=== PATIENT | male | born 1935 | race Caucasian/White ===

== ENCOUNTER 2019-09-20 14:45 | Inpatient (IN) | payer OTHER ==
[2019-09-20] MEDS ORDERED: NA CHLORIDE 0.9% 2,000 ML ONE (15:04)
[2019-09-20] MEDS ORDERED: ACETAMINOPHEN 650MG/RECT SUPP PR ONE (15:04)
[2019-09-20 15:30] LABS: Arterial Blood Carboxyhemoglob 1.7 % (0-1.5); Blood Gas Oxyhemoglobin 97.3 % (94-97); Blood O2 Saturation 99.6 % (92-98.5)
[2019-09-20 15:52] LABS: Protime INR 1.23
[2019-09-20 15:57] LABS: Absolute Lymphocytes (CBC) 0.5 K/uL (0.7-4.9); Basophils % 0.1 % (0-1.3); Hematocrit 32.8 % (39.6-49.0); MPV 8.7 fL (7.6-11.3); RBC Red Blood Cell Count 3.68 M/uL (4.33-5.43)
[2019-09-20 16:03] LABS: Albumin 2.7 g/dL (3.4-5.0); Bilirubin Direct 0.2 mg/dL (0-0.2); Bilirubin Total 0.7 mg/dL (0.2-1.0); Magnesium 1.6 mg/dL (1.8-2.4); Protein, Total 6.5 g/dL (6.4-8.2); Troponin (Emerg Dept Use Only) 0.06 ng/mL (0.0-0.045)
[2019-09-20] MEDS ORDERED: METOPROLOL TARTRATE 5 MG/5 ML INJ IV ONE (16:19)
[2019-09-20] MEDS ORDERED: ENOXAPARIN 100 MG/ML SYR SQ ONE (16:24)
[2019-09-20] MEDS ORDERED: FUROSEMIDE 100 MG/10 ML VIAL IV ONE (16:29)
[2019-09-20 16:46] LABS: Urine Blood 2+ (NEG); Urine Glucose NEGATIVE (NEG); Urine Protein 1+ (NEG)
[2019-09-20 16:52] LABS: Urine Bacteria <20 /HPF (NONE SEEN); Urine Culture Reflex Order NOT NEEDED; Urine RBC <5 /HPF (NONE SEEN)
[2019-09-20] MEDS ORDERED: PIPER/TAZO/NS 3.375gm 3.375 GM/100 ML BAG ONE ×2 (17:07→17:44)
[2019-09-20] MEDS ORDERED: MAGNESIUM SULFATE 1 gm IVPB 1 GM/100 ML BAG IV ONE (17:07)
--- NOTE | 2019-09-20 17:09 | RAD REPORT ---
EXAM DESCRIPTION: RAD - Chest Single View - 09/20/2019 3:32 pm CLINICAL HISTORY: FEVER COMPARISON: January 2006 TECHNIQUE: AP portable chest image was obtained 09/20/2019 3:32 pm . FINDINGS: Lung volumes are low. Interstitial and minimal alveolar opacities are present. Cardiomegal y is present. Vascular engorgement is seen. Minimal opacification partially obscures the right hemidi aphragm. No pneumothorax or large pleural effusion. No acute bony abnormality seen. No acute aortic f indings suspected. IMPRESSION: Limited shallow inspiration exam shows failure/ volume overload findings. This needs cor relation with clinical presentation. No focal consolidations seen. Right base assessment is limited. Retrocardiac left base assessment als o limited.
[2019-09-20 18:30] LABS: Blood Morphology Comment NOT SEEN (NOT SEEN); Platelet Estimate ADEQ; Urine White Blood Cell Casts OK
--- NOTE | 2019-09-20 18:36 | RAD REPORT ---
EXAM DESCRIPTION: CT - Head Brain Wo Cont - 09/20/2019 6:22 pm CLINICAL HISTORY: MENTAL STATUS CHANGE, AMS, fever, history of CVA COMPARISON: MRI BRAIN WITHOUT CONTRAST dated 11/06/2014 TECHNIQUE: Axial 5 mm thick images of the head were obtained without IV contrast. All CT scans are performed using dose optimization technique as appropriate and may include automated exposure control or mA/KV adjustment according to patient size. FINDINGS: No intracranial hemorrhage, mass, edema or shift of mid-line structures. No acute infarcti on changes seen. No cortical edema or sulcal effacement. Moderate severity atrophy present. Chronic i schemic changes are present relatively mild. Old ischemic changes are present in the posterolateral l eft thalamus. This is similar to the MRI study. Ventricles are in proportion to volume loss. Vascular tortuosity noted. Arterial and physiologic calcifications present. Mastoid air cells and visualized portions of the paranasal sinuses are clear. No acute bony findings. IMPRESSION: No hemorrhage is present. No acute cortical based infarction. Atrophy and chronic ischemic changes are present but not substantially different from 2015 MRI. Chronic ischemic changes can mask nonhemorrhagic acute infarction. MR brain followup can be obtained if there is ongoing concern for acute ischemia.
--- NOTE | 2019-09-20 18:43 | RAD REPORT ---
EXAM DESCRIPTION: CT - Chest For Pe Angio - 09/20/2019 6:22 pm CLINICAL HISTORY: elevated dd;Fever COMPARISON: No comparisons TECHNIQUE: Dynamically enhanced 3 mm thick images of the chest were obtained during administration o f approximately 150mL Isovue 370 IV contrast. Coronal and oblique MIP reconstruction images were gene rated and reviewed. Exam utilizes a protocol to evaluate the pulmonary arterial tree. All CT scans are performed using dose optimization technique as appropriate and may include automated exposure control or mA/KV adjustment according to patient size. FINDINGS: No pulmonary emboli are identified. Ascending aorta is 4.2 cm in diameter. Aortic arch distal to the left subclavian artery origin is dil ated to 4.7 cm. No displaced calcifications. Full assessment of the aorta is limited on a PE protocol study. Cardiomegaly is present without pericardial effusion. Emphysema changes are present in the upper lung herrera. Minimal atelectasis in the posterior gutter o n the left. Atelectasis and consolidation are present in the posterior gutter on the right. A few air bronchograms are present. No ground-glass opacification. No measurable pleural effusion. There is no pneumothorax. No mediastinal or hilar suspicious masses. No chest wall masses or abnormal axillary lymphadenopathy. Upper abdominal imaging is limited. There is a 4.9 centimeter round low-density mass believed to be a n upper pole left renal cyst. A much larger 12 centimeter lobulated mass is present in the location o f the right kidney displacing the liver. This has variable attenuation. The right kidney is insuffici ently image to allow assessment. Most of the large lobulated mass is low density. 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 A large malignancy cannot be excluded. This finding warrants follow-up. However, that follow-up may need to be delayed. The patient has received contrast for this study. IMPRESSION: No pulmonary emboli identified. Small posterior right lung base pneumonia. Bacterial pneumonia suspected. Lung parenchymal pattern is not a typical COVID-19 presentation. Large lobulated 12 centimeter mass in the right renal fossa only partially imaged. 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 Malignancy cannot be excluded. Follow-up CT abdomen imaging will be needed. However, this needs to be delayed for optimal imaging. T he presence of contrast from this study limits the ability to perform intermediate evaluation of the kidney. Cardiomegaly.
[2019-09-20] MEDS ORDERED: NA CHLORIDE 0.9% 250 ML ONE (19:19)
[2019-09-20] MEDS ORDERED: CEFTRIAXONE/SWI 1gm 1 GM/10 ML SYR ONE (19:19)
[2019-09-20] MEDS ORDERED: VANCOMYCIN 1 GM/VIAL ONE (19:19)
--- NOTE | 2019-09-20 19:22 | ER ---
Nurse's Notes [facility] Name: Osmin Hobbs Age: 84 yrs Sex: Male : 1935 Arrival Date: 09/20/2019 Time: 14:48 Bed 4 Private MD: Diagnosis: Atrial Fibrillation with Rapid Ventricular rate;Fever, unspecified;Pneumonia in diseases classified elsewhere;Unspecified combined systolic (congestive) and diastolic (congestive) heart failure;Respiratory failure;Hypertension Presentation: 09/19 14:48 Chief complaint: EMS states: Family called us due to pt being altered, normally A\T\Ox4 jl7 and he's A\T\Ox2 to self and place; pt was SOB on arrival, 12-lead showed A-Fib with RVR, 10 mg Cardizem IVP administered over 2 min with no change; an additional 20 mg Cardizem IVP administered over 10 min with no change. Coronavirus screen: Surgical mask placed on patient. Patient moved to private room, placed in contact and droplet isolation with eye protection until further assessment. Patient denies a cough. Patient reports shortness of breath or difficulty breathing. Patient reports a measured and/or subjective temperature greater than 100.4F. unable to obtain travel and contact history at this time. 14:48 Method Of Arrival: EMS: [facility] jl7 14:48 Ebola Screen: No symptoms or risks identified at this time. Initial Sepsis Screen: Does jl7 the patient meet any 2 criteria? RR > 20 per min. Temp <36.0*C (96.8*F)) or > 38.3*C (100.9*F). Altered Mental Status. HR > 90 bpm. Yes Does the patient have a suspected source of infection? Yes: Productive cough/pneumonia Dysuria/Frequency/Urgency/UTI. Risk Assessment: Do you want to hurt yourself or someone else? Patient reports no desire to harm self or others. Onset of symptoms is unknown. Care prior to arrival: Medication(s) given: Normal saline infusion, 300 mL IV initiated. 20 GA, in the left forearm, Oxygen administered. via a non-rebreather mask. Activity prior to arrival: confused. Transition of care: patient was not received from another setting of care. 16:31 Acuity: CESARIO 1 iw Triage Assessment: 14:48 General: Appears distressed, uncomfortable, unkempt, Behavior is agitated, restless. jl7 Pain: Unable to use pain scale. Does not appear to understand pain scale. Neuro: Level of Consciousness is awake, confused, Oriented to person. Cardiovascular: Patient's skin is warm and dry. Rhythm is atrial fibrillation with rapid ventricular response. Respiratory: Airway is patent Respiratory effort is even, labored, Respiratory pattern is symmetrical, tachypnea. Derm: Skin is dry, Skin is pale, Skin temperature is hot. Historical: - Allergies: 16:37 Sulfa (Sulfonamide Antibiotics); iw - Home Meds: 16:38 aspirin 81 mg Oral chew 1 tab once daily [Active]; multivitamin Oral [Active]; iw - PMHx: 16:38 CVA; iw - PSHx: 16:38 Hernia repair; iw - Immunization history:: Adult Immunizations unknown. - Social history:: Smoking status: unknown. Screenin:00 Abuse screen: Denies threats or abuse. Denies injuries from another. Nutritional jl7 screening: No deficits noted. Tuberculosis screening: No symptoms or risk factors identified. Fall Risk No fall in past 12 months (0 pts). No secondary diagnosis (0 pts). IV access (20 points). Ambulatory Aid- None/Bed Rest/Nurse Assist (0 pts). Gait- Weak (10 pts.). Mental Status- Overestimates/Forgets Limitations (15 pts.). Total Carlson Fall Scale indicates High Risk Score (45 or more points). Fall prevention measures have been instituted. Side Rails Up X 2 Placed Close to Nursing Station Frequent Obs/Assessments Occuring As available patient and family educated on Fall Prevention Program and Strategies. Assessment: 16:10 Reassessment: Reassessment: Pt has increased restlessness and agitation, audible jl7 wheezing noted. JOSE G Boggs and Dr. Benavides notified and at bedside. Respiratory: Airway is patent Respiratory effort is labored, with retractions, Respiratory pattern is tachypnea. 16:30 Reassessment: Dr. Benavides and JOSE G Boggs at beside to reassess, RT called to bedside to iw place pt on BiPAP. 16:44 Reassessment: spoke with Zoe on phone, states that pt is a Full Code and has iw no hx of Afib, not on any anticoagulation, only takes a baby aspirin daily since he had a stroke five years ago. 17:40 Reassessment: pt placed on cooling blanket for temp of 105.1, pt cleaned of stool, iw linens changed, pt remains on BiPAP, appears more relaxed BP down to 112/72, HR down to 92 , XzB6=650%. 17:40 Reassessment: IV to LFA appears to be infiltrated, new IV started to LAC. iw 18:41 Reassessment: Pt transport to CT via stretcher with LYLE Jones and ADRIÁN Turner. [address] on 2 lpm NC; A\T\O x 3 at this time; pt appeared to start getting restless with NC on, once returned from CT and BiPap placed back on pt he appeared to settle down and appears more comfortable at this time. 19:58 Reassessment: DR LAMB ASSESSED THE PATIENT AT ROOM 4 AND DISCONNECTED TO BIPAP MACHINE. rv PATIENT IS STABLE AT 2 NC, SAT AT 99%. 21:00 Neuro: Level of Consciousness is awake, alert, obeys commands, Oriented to person, rv place, situation. 21:00 Cardiovascular: Rhythm is atrial fibrillation with rapid ventricular response. rv Vital Signs: 14:48 BP 125 / 75; Pulse 120; Resp 21 S; Pulse Ox 85% on R/A; jl7 14:54 Weight 90.72 kg; vc 15:00 BP 123 / 78; Pulse 107; Resp 19; Pulse Ox 100% on Non-rebreather mask; jl7 15:30 BP 139 / 101; Pulse 102; Resp 25 S; Pulse Ox 91% on 2 lpm NC; jl7 16:08 BP 161 / 96; Pulse 157; Resp 34 S; Temp 102.5(C); Pulse Ox 86% on 2 lpm NC; jl7 16:12 BP 161 / 96; Pulse 157; Resp 30 S; Pulse Ox 94% on 2 lpm NC; jl7 16:43 BP 179 / 101; Pulse 115; Resp 39; Temp 104.6(C); Pulse Ox 99% on BiPAP; iw 16:47 BP 124 / 85; Pulse 108; Resp 30 A; Temp 104.8(C); Pulse Ox 99% on BiPAP; jl7 16:50 BP 116 / 71; Pulse 98; Resp 27; Temp 105; Pulse Ox 99% ; jl7 17:00 BP 100 / 64; Pulse 92; Resp 26; Temp 105.1; Pulse Ox 99% ; jl7 17:15 BP 133 / 87; Pulse 97; Resp 26; Temp 104.7; Pulse Ox 100% ; jl7 17:30 BP 109 / 71; Pulse 101; Resp 21 A; Temp 104.1(C); Pulse Ox 100% on BiPAP; jl7 17:45 BP 112 / 72; Pulse 89; Resp 22; Pulse Ox 99% ; jl7 18:00 BP 130 / 76; Pulse 96; Resp 22; Temp 103.7; Pulse Ox 100% ; jl7 18:15 BP 139 / 103; Pulse 111; Resp 24; Pulse Ox 95% on 2 lpm NC; jl7 18:30 BP 148 / 83; Pulse 96; Resp 21; Temp 101.9; Pulse Ox 96% ; jl7 18:45 BP 124 / 85; Pulse 100; Resp 21; Pulse Ox 97% ; jl7 19:00 BP 116 / 78; Pulse 93; Resp 19; Pulse Ox 98% on 30% BiPAP; rv 19:30 BP 132 / 82; Pulse 90; Resp 27; Temp 101; Pulse Ox 99% on 30% BiPAP; rv 20:00 BP 127 / 95; Pulse 94; Resp 19; Temp 100.6; Pulse Ox 99% on 30% BiPAP; rv 20:30 BP 149 / 106; Pulse 101; Resp 25; Temp 100.2; Pulse Ox 97% on 2 lpm NC; rv 20:30 BP 149 / 106; Pulse 101; Resp 25; Temp 100.4; Pulse Ox 97% on 2 lpm NC; rv 21:00 BP 169 / 103; Pulse 103; Resp 24; Temp 100.4; Pulse Ox 97% on 2 lpm NC; rv ED Course: 14:48 Patient arrived in ED. iw 14:48 Ambrose Arauz PA is PHCP. jr8 14:48 Nabil Benavides DO is Attending Physician. jr8 15:00 Patient has correct armband on for positive identification. Placed in gown. Bed in low jl7 position. Call light in reach. Side rails up X2. threat monitoring analyst on. Pulse ox on. NIBP on. 15:05 First set of blood cultures drawn by me. jl7 15:11 Initial lab(s) drawn, by me, sent to lab. Inserted saline lock: 20 gauge in right jl7 wrist, using aseptic technique. Blood collected. 15:11 Second set of blood cultures drawn by me, Flu and/or RSV swab sent to lab. Covid-19 jl7 swab sent to lab. 15:33 Chest Single View XRAY In Process Unspecified. EDMS 15:50 Cleaned of incontinence. jl7 15:57 Notified Nurse Practitioner and/or Physician [employer] of a critical lab result(s), sv [id number]. 16:00 Speci-cath kit inserted, using sterile technique, 16 Fr., specimen obtained. returned jl7 clear yellow urine. Patient tolerated well. 16:31 Triage completed. iw 17:08 uYe Murphy, RN is Primary Nurse. jl7 17:30 Cleaned of incontinence. jl7 17:57 Inserted saline lock: 20 gauge in left antecubital area, using aseptic technique. iw 18:22 CT Head Brain wo Cont In Process Unspecified. EDMS 18:22 CT Chest For PE Angio In Process Unspecified. EDMS 19:17 Gene Lamb MD is Hospitalizing Provider. ms3 19:38 Primary Nurse role handed off by Yue Murphy, RN jl7 19:58 Jun Carvajal, ADRIÁN is Primary Nurse. rv 20:28 a voicemail has been left at the listed number [phone] for a call back to the ED, sg awaiting a call back at this time. 21:26 No provider procedures requiring assistance completed. Patient admitted, IV remains in vc place. Administered Medications: 16:00 Drug: Acetaminophen Suppository 650 mg Route: MT; jl7 17:30 Follow up: Response: No adverse reaction; Temperature is decreased jl7 16:10 Drug: NS 0.9% (30 ml/kg) 30 ml/kg Route: IV; Rate: bolus; Site: right wrist; jl7 16:45 Follow up: IV Status: Completed infusion; Order to discontinue infusion; IV Intake: jl7 500ml 16:10 Drug: Lopressor 5 mg Route: IVP; Site: right wrist; jl7 16:12 Drug: Lovenox 1 mg/kg Route: Sub-Q; Site: abdomen; jl7 18:42 Follow up: Response: No adverse reaction jl7 16:20 Drug: Lopressor 5 mg Route: IVP; Site: right wrist; jl7 16:45 Follow up: Response: No adverse reaction; Cardiac rhythm changed jl7 16:22 Drug: Lasix 60 mg Route: IVP; Site: right wrist; jl7 17:00 Follow up: Response: No adverse reaction jl7 16:36 Drug: Nitro Drip - (Nitroglycerin 50 mg, D5W 250 ml) Route: IV; Rate: 100 mcg/min; jl7 Site: right wrist; 16:50 Follow up: Response: No adverse reaction; IV Status: Order to discontinue infusion jl7 17:15 Drug: Magnesium Sulfate 1 grams Route: IVPB; Infused Over: 1 hrs; Site: right iw antecubital; 18:15 Follow up: Response: No adverse reaction; IV Status: Completed infusion jl7 17:30 Drug: Zosyn 3.375 grams Route: IVPB; Infused Over: 60 mins; Site: left antecubital; iw 18:30 Follow up: Response: No adverse reaction; IV Status: Completed infusion jl7 19:20 Drug: Rocephin 1 grams Route: IV; Rate: calculated rate; Site: left antecubital; rv 19:25 Follow up: IV Status: Completed infusion rv 19:25 Drug: vancoMYCIN 1 grams Route: IVPB; Infused Over: 2 hrs; Site: left antecubital; rv 21:37 Follow up: IV Status: Infusion continued upon admission rv Intake: 16:45 IV: 500ml; Total: 500ml. 7 Outcome: 19:21 Decision to Hospitalize by Provider. ms3 21:27 Patient left the ED. vc Signatures: Dispatcher [employer] EDMS Yasmin Vogel RN RN sv Gay, Steven RN Wendi Byrd RN RN Ambrose Arauz, Yue Molina RN RN jl7 Jun Carvajal RN RN rv Alana Garcia RN RN Nabil Benavides DO DO ms3 Corrections: (The following items were deleted from the chart) 17:55 16:57 BP 116 / 71; Pulse 95bpm; Resp 20bpm; Spontaneous; Pulse Ox 99% BiPAP; Temp jl7 105.1F Catheter; iw 17:55 17:49 BP 112 / 72; Pulse 92bpm; Resp 22bpm; Spontaneous; Pulse Ox 100% BiPAP; Temp jl7 103.2F Catheter; iw 17:56 17:52 Reassessment: pt placed on cooling blanket for temp of 105.1, pt cleaned of iw stool, linens changed, pt remains on BiPAP, appears more relaxed BP down to 112/72, HR down to 92 , UbC9=410% iw 19:26 16:10 Reassessment: geraldo jl7
--- NOTE | 2019-09-20 19:22 | EDPHYS ---
Physician Documentation [facility] Name: Osmin Hobbs Age: 84 yrs Sex: Male : 1935 Arrival Date: 09/20/2019 Time: 14:48 Bed 4 Private MD: ED Physician Nabil Benavides HPI: 09/19 16:59 This 84 yrs old Male presents to ER via Unassigned with complaints of Altered jr8 Mental Status, Fever. 16:59 Onset: The symptoms/episode began/occurred acutely, today. Possible causes: unknown. jr8 Associated signs and symptoms: Pertinent positives: confusion. Current symptoms: In the emergency department the patient's symptoms are unchanged from the initial presentation. Patient's baseline: Neuro: alert and fully oriented, Motor: no deficits, Ambulation: walks with assist only, Speech: normal. It is unknown whether or not the patient has had similar symptoms in the past. The patient has not recently seen a physician. EMS called out by family for altered patient. Patient found to have fever at home. No other complaints . Historical: - Allergies: 16:37 Sulfa (Sulfonamide Antibiotics); iw - Home Meds: 16:38 aspirin 81 mg Oral chew 1 tab once daily [Active]; multivitamin Oral [Active]; iw - PMHx: 16:38 CVA; iw - PSHx: 16:38 Hernia repair; iw - Immunization history:: Adult Immunizations unknown. - Social history:: Smoking status: unknown. ROS: 17:09 Eyes: Negative for injury, pain, redness, and discharge, ENT: Negative for injury, jr8 pain, and discharge, Neck: Negative for injury, pain, and swelling, Cardiovascular: Negative for chest pain, palpitations, and edema, Abdomen/GI: Negative for abdominal pain, nausea, vomiting, diarrhea, and constipation, Back: Negative for injury and pain, MS/Extremity: Negative for injury and deformity, Skin: Negative for injury, rash, and discoloration. 17:09 Respiratory: Positive for shortness of breath. 17:09 Neuro: Positive for altered mental status. Exam: 17:09 Eyes: Pupils equal round and reactive to light, extra-ocular motions intact. Lids and jr8 lashes normal. Conjunctiva and sclera are non-icteric and not injected. Cornea within normal limits. Periorbital areas with no swelling, redness, or edema. Neck: Trachea midline, no thyromegaly or masses palpated, and no cervical lymphadenopathy. Supple, full range of motion without nuchal rigidity, or vertebral point tenderness. No Meningismus. Abdomen/GI: Soft, non-tender, with normal bowel sounds. No distension or tympany. No guarding or rebound. No evidence of tenderness throughout. Back: No spinal tenderness. No costovertebral tenderness. Full range of motion. Skin: Warm, dry with normal turgor. Normal color with no rashes, no lesions, and no evidence of cellulitis. 17:09 MS/ Extremity: Pulses equal, no cyanosis. Neurovascular intact. Full, normal range of motion. 17:09 Cardiovascular: Rate: tachycardic, Rhythm: irregularly irregular, Pulses: Pulses are 2+ in right radial artery and left radial artery. Heart sounds: normal, Edema: is not appreciated, JVD: is not appreciated. 17:09 Respiratory: the patient does not display signs of respiratory distress, Respirations: tachypnea, that is mild, Breath sounds: decreased breath sounds, that are mild, are located in both bases. 17:09 Neuro: Orientation: to person, Not oriented to place, time, situation, Mentation: able to follow commands, confused. 17:18 ECG was reviewed by the Attending Physician. jr8 Vital Signs: 14:48 BP 125 / 75; Pulse 120; Resp 21 S; Pulse Ox 85% on R/A; jl7 14:54 Weight 90.72 kg; vc 15:00 BP 123 / 78; Pulse 107; Resp 19; Pulse Ox 100% on Non-rebreather mask; jl7 15:30 BP 139 / 101; Pulse 102; Resp 25 S; Pulse Ox 91% on 2 lpm NC; jl7 16:08 BP 161 / 96; Pulse 157; Resp 34 S; Temp 102.5(C); Pulse Ox 86% on 2 lpm NC; jl7 16:12 BP 161 / 96; Pulse 157; Resp 30 S; Pulse Ox 94% on 2 lpm NC; jl7 16:43 BP 179 / 101; Pulse 115; Resp 39; Temp 104.6(C); Pulse Ox 99% on BiPAP; iw 16:47 BP 124 / 85; Pulse 108; Resp 30 A; Temp 104.8(C); Pulse Ox 99% on BiPAP; jl7 16:50 BP 116 / 71; Pulse 98; Resp 27; Temp 105; Pulse Ox 99% ; jl7 17:00 BP 100 / 64; Pulse 92; Resp 26; Temp 105.1; Pulse Ox 99% ; jl7 17:15 BP 133 / 87; Pulse 97; Resp 26; Temp 104.7; Pulse Ox 100% ; jl7 17:30 BP 109 / 71; Pulse 101; Resp 21 A; Temp 104.1(C); Pulse Ox 100% on BiPAP; jl7 17:45 BP 112 / 72; Pulse 89; Resp 22; Pulse Ox 99% ; jl7 18:00 BP 130 / 76; Pulse 96; Resp 22; Temp 103.7; Pulse Ox 100% ; jl7 18:15 BP 139 / 103; Pulse 111; Resp 24; Pulse Ox 95% on 2 lpm NC; jl7 18:30 BP 148 / 83; Pulse 96; Resp 21; Temp 101.9; Pulse Ox 96% ; jl7 18:45 BP 124 / 85; Pulse 100; Resp 21; Pulse Ox 97% ; jl7 19:00 BP 116 / 78; Pulse 93; Resp 19; Pulse Ox 98% on 30% BiPAP; rv 19:30 BP 132 / 82; Pulse 90; Resp 27; Temp 101; Pulse Ox 99% on 30% BiPAP; rv 20:00 BP 127 / 95; Pulse 94; Resp 19; Temp 100.6; Pulse Ox 99% on 30% BiPAP; rv 20:30 BP 149 / 106; Pulse 101; Resp 25; Temp 100.2; Pulse Ox 97% on 2 lpm NC; rv 20:30 BP 149 / 106; Pulse 101; Resp 25; Temp 100.4; Pulse Ox 97% on 2 lpm NC; rv 21:00 BP 169 / 103; Pulse 103; Resp 24; Temp 100.4; Pulse Ox 97% on 2 lpm NC; rv MDM: 14:48 Patient medically screened. jr8 16:51 ED course: Pt with increased work of breathing and increased HR. Pt hypertensive MAP ms3 124 (200/110), pt with likely COVID and possible CHF. Bipap started at 15/8. Nitro ggt started at 100 mcg/min, pt MAP of 97. Nitro decreased to 50 mcg/min. Pt MAP then decreased to 87 and Nitro ggt stopped. Pt work of breathing improved. Will continue to monitor patient closely.. 17:09 Data reviewed: vital signs, nurses notes, lab test result(s), EKG, radiologic studies, [facility] plain films. Data interpreted: Pulse oximetry: on 4L(s) per nasal canula, is 88 %. Interpretation: hypoxia. Counseling: I had a detailed discussion with the patient and/or guardian regarding: the historical points, exam findings, and any diagnostic results supporting the discharge/admit diagnosis, lab results, radiology results, the need for further work-up and treatment in the hospital. ED course: Patient acutely decompensated in ED. Went into Atrial Fib RVR with diffuse wheezing and acute respiratory distress. Patient was given lasix, BIPAP, and nitro, along with another 5 mg of metoprolol. Patient within about 10 min stabilized and is now doing much better. 17:17 ED course: Discussed care with family. Patient to remain full code. As far as family [facility] knows. No HF history of atrial fib . 09/19 14:50 Order name: ABG; Complete Time: 15:38 09/19 14:50 Order name: D-Dimer; Complete Time: 16: [facility] 09/19 14:50 Order name: Urine Culture 09/19 14:50 Order name: Basic Metabolic Panel; Complete Time: 16: [facility] 09/19 14:50 Order name: Blood Culture Adult (2) [facility] 09/19 14:50 Order name: CBC with Diff; Complete Time: 19:03 [facility] 09/19 14:50 Order name: CPK; Complete Time: 16:55 [facility] 09/19 14:50 Order name: Lactate; Complete Time: 16:55 [facility] 09/19 14:50 Order name: LFT's; Complete Time: 16:55 [facility] 09/19 14:50 Order name: Lipase; Complete Time: 16:55 [facility] 09/19 14:50 Order name: Procalcitonin; Complete Time: 16:55 [facility] 09/19 14:50 Order name: Protime (+inr); Complete Time: 16:55 [facility] 09/19 14:50 Order name: Ptt, Activated; Complete Time: 16: [facility] 09/19 14:50 Order name: Troponin (emerg Dept Use Only); Complete Time: 16:55 09/19 14:50 Order name: Urine Microscopic Only; Complete Time: 16:55 09/19 14:50 Order name: COVID-19 09/19 14:50 Order name: BNP; Complete Time: 16:55 09/19 14:50 Order name: Magnesium; Complete Time: 16:55 [facility] 09/19 15:17 Order name: Flu; Complete Time: 16:55 iw 09/19 16:44 Order name: Urine Dipstick--Ancillary (enter results); Complete Time: 16:55 eb 09/19 18:30 Order name: CBC Smear Scan; Complete Time: 19:03 EDMS 09/19 20:09 Order name: Comprehensive Metabolic Panel MS 09/19 20:09 Order name: Comprehensive Metabolic Panel MS 09/19 20:09 Order name: Lactate EDMS 09/19 20:09 Order name: Lactate EDMS 09/19 20:09 Order name: Magnesium EDMS 09/19 20:09 Order name: Magnesium EDMS 09/19 20:09 Order name: NT PRO-BNP MS 09/19 20:09 Order name: NT PRO-BNP MS 09/19 20:09 Order name: Phosphorus EDMS 09/19 14:50 Order name: Cath; Complete Time: 17:09 09/19 14:50 Order name: Chest Single View XRAY; Complete Time: 17:21 09/19 14:50 Order name: Accucheck; Complete Time: 17:23 09/19 14:50 Order name: Cardiac monitoring; Complete Time: 17:09/19 14:50 Order name: EKG - Nurse/Tech; Complete Time: 17:23 09/19 14:50 Order name: IV Saline Lock - Large Bore; Complete Time: 17:23 09/19 14:50 Order name: Labs collected and sent; Complete Time: 17:09/19 14:50 Order name: O2 Per Protocol; Complete Time: 17:23 09/19 14:50 Order name: O2 Sat Monitoring; Complete Time: 17:23 09/19 14:50 Order name: Urine Dipstick-Ancillary (obtain specimen); Complete Time: 17:23 09/19 17:07 Order name: BIPAP jr8 09/19 17:27 Order name: CT Head Brain wo Cont; Complete Time: 19:03 jr8 09/19 17:27 Order name: CT Chest For PE Angio; Complete Time: 19:03 jr8 09/19 20:09 Order name: Phosphorus EDMS 09/19 20:09 Order name: Procalcitonin EDMS 09/19 20:09 Order name: Procalcitonin EDMS 09/19 20:11 Order name: Heart Healthy EDMS 09/19 20:11 Order name: CBC with Automated Diff EDMS 09/19 20:11 Order name: CBC with Automated Diff EDMS 09/19 20:11 Order name: Troponin I EDMS 09/19 20:11 Order name: Troponin I EDMS 09/19 20:11 Order name: Troponin I EDMS EC:18 Rate is 115 beats/min. Rhythm is irregularly irregular, A fib. Left axis deviation jr8 noted. QRS interval is normal at 88 msec. QT interval is normal at 450 msec. No Q waves. T waves are Normal. No ST changes noted. Clinical impression: Atrial Fibrillation. Interpreted by me. Reviewed by me. Administered Medications: 16:00 Drug: Acetaminophen Suppository 650 mg Route: CO; jl7 17:30 Follow up: Response: No adverse reaction; Temperature is decreased jl7 16:10 Drug: NS 0.9% (30 ml/kg) 30 ml/kg Route: IV; Rate: bolus; Site: right wrist; jl7 16:45 Follow up: IV Status: Completed infusion; Order to discontinue infusion; IV Intake: jl7 500ml 16:10 Drug: Lopressor 5 mg Route: IVP; Site: right wrist; jl7 16:12 Drug: Lovenox 1 mg/kg Route: Sub-Q; Site: abdomen; jl7 18:42 Follow up: Response: No adverse reaction jl7 16:20 Drug: Lopressor 5 mg Route: IVP; Site: right wrist; jl7 16:45 Follow up: Response: No adverse reaction; Cardiac rhythm changed jl7 16:22 Drug: Lasix 60 mg Route: IVP; Site: right wrist; jl7 17:00 Follow up: Response: No adverse reaction jl7 16:36 Drug: Nitro Drip - (Nitroglycerin 50 mg, D5W 250 ml) Route: IV; Rate: 100 mcg/min; jl7 Site: right wrist; 16:50 Follow up: Response: No adverse reaction; IV Status: Order to discontinue infusion jl7 17:15 Drug: Magnesium Sulfate 1 grams Route: IVPB; Infused Over: 1 hrs; Site: right iw antecubital; 18:15 Follow up: Response: No adverse reaction; IV Status: Completed infusion jl7 17:30 Drug: Zosyn 3.375 grams Route: IVPB; Infused Over: 60 mins; Site: left antecubital; iw 18:30 Follow up: Response: No adverse reaction; IV Status: Completed infusion jl7 19:20 Drug: Rocephin 1 grams Route: IV; Rate: calculated rate; Site: left antecubital; rv 19:25 Follow up: IV Status: Completed infusion rv 19:25 Drug: vancoMYCIN 1 grams Route: IVPB; Infused Over: 2 hrs; Site: left antecubital; rv 21:37 Follow up: IV Status: Infusion continued upon admission rv Disposition: 17:17 Critical Care:. arturo 18:22 Co-signature as Attending Physician, Nabil Benavides DO I agree with the assessment and ms3 plan of care. PA/SCRAP BALLER's history reviewed, patient interviewed, and examined. HPI: 84 yo male presents w/ tachycardia, fever, ams, a fib with RVR via LJEMS. My personal exam of patient reveals: Pt with tachypnea and respiratory distress on arrival, Pulse irregularly irregular, tachycardic. Pt with confusion. I agree with assessment and care plan and confirm the diagnosis (es) above. Disposition: 09/20/19 19:21 Hospitalization ordered by Gene [facility] for Inpatient Admission. Preliminary diagnosis are Atrial Fibrillation with Rapid Ventricular rate, Fever, unspecified, Pneumonia in diseases classified elsewhere, Unspecified combined systolic (congestive) and diastolic (congestive) heart failure, Respiratory failure, Hypertension. - Bed requested for Intensive Care Unit. - Status is Inpatient Admission. vc - Condition is Stable. - Problem is new. - Symptoms have improved. Critical care time excluding procedures: 17:17 Critical care time: Bedside Care: 20 minutes, Consultation: 10 minutes, Family jr8 Intervention: 5 minutes. Total time: 35 minutes Addendum: 09/22/2019 10:50 Addendum: fluids were held after patient had flash pulmonary edema. Abx delayed as we j r8 initially suspected a possibility of COVID related viral pneumonia. . Signatures: Dispatcher [employer] EDYasmin Stock, RN Rosalva Reno RN Wendi Horner, RN RN Ambrose Hayes PA PA jr8 Yue Murphy, ADRIÁN RN jl7 Jun Carvajal RN RN rv Alana Garcia RN RN vc Sims, Marcus, DO DO ms3 Corrections: (The following items were deleted from the chart) 09/19 20:22 19:21 Hospitalization Ordered by Gene Lamb MD for Inpatient Admission. Preliminary dw diagnosis is Atrial Fibrillation with Rapid Ventricular rate; Fever, unspecified; Pneumonia in diseases classified elsewhere; Unspecified combined systolic (congestive) and diastolic (congestive) heart failure; Respiratory failure; Hypertension. Bed requested for Intensive Care Unit. Status is Inpatient Admission. Condition is Stable. Problem is new. Symptoms have improved. ms3 21:27 20:22 09/20/2019 19:21 Hospitalization Ordered by Gene [facility] MD for Inpatient vc Admission. Preliminary diagnosis is Atrial Fibrillation with Rapid Ventricular rate; Fever, unspecified; Pneumonia in diseases classified elsewhere; Unspecified combined systolic (congestive) and diastolic (congestive) heart failure; Respiratory failure; Hypertension. Bed requested for Intensive Care Unit. Status is Inpatient Admission. Condition is Stable. Problem is new. Symptoms have improved. dw
[2019-09-20] MEDS ORDERED: ALBUTEROL 2.5 MG/3 ML NEB SOL NEB PRN (20:02)
[2019-09-20] MEDS ORDERED: IPRATROPIUM BROM 0.5MG/2.5ML NEB PRN (20:02)
[2019-09-20] MEDS ORDERED: ONDANSETRON 4 MG/2 ML VIAL IV PRN (20:02)
[2019-09-20] MEDS ORDERED: Levofloxacin500mg IV 500 MG/100 ML BAG IV SCH (21:00)
[2019-09-20] MEDS ORDERED: NA CHLORIDE 0.9% 1,000 ML IV SCH (21:00)
[2019-09-20] MEDS: ACETAMINOPHEN 500 MG TAB PO SCH (22:06)
[2019-09-20] MEDS ORDERED: METOPROLOL TARTRATE 5 MG/5 ML INJ IV STA (23:31)
[2019-09-21] MEDS ORDERED: NITROGLYCERIN 1 GM PKT TD SCH
[2019-09-21] MEDS ORDERED: NA CHLORIDE 0.9% 100 ML ONE (00:55)
[2019-09-21] MEDS ORDERED: PIPERACIL/TAZO 3.375 GM VIAL IV ONE (00:55)
[2019-09-21] MEDS: PIPER/TAZO/NS 3.375gm 3.375 GM/100 ML BAG IVPB SCH ×3 (01:00→16:25)
[2019-09-21] MEDS: ACETAMINOPHEN 500 MG TAB PO SCH ×4 (04:39→21:24)
[2019-09-21 05:45] LABS: Absolute Lymphocytes (CBC) 0.6 K/uL (0.7-4.9); Basophils % 0.2 % (0-1.3); Hematocrit 33.5 % (39.6-49.0); Lymphocytes % 3.4 % (15.3-44.8); MPV 8.6 fL (7.6-11.3); RBC Red Blood Cell Count 3.74 M/uL (4.33-5.43)
[2019-09-21 05:53] LABS: Albumin 2.6 g/dL (3.4-5.0); Bilirubin Total 0.6 mg/dL (0.2-1.0); Magnesium 2.2 mg/dL (1.8-2.4); Phosphorus 3.9 mg/dL (2.5-4.9); Potassium 3.3 mmol/L (3.5-5.1); Protein, Total 6.5 g/dL (6.4-8.2); Troponin I 0.1 ng/mL (0.0-0.045)
--- NOTE | 2019-09-21 05:53 | P.HP ---
Certification for Inpatient Patient admitted to: Inpatient With expected LOS: >2 Midnights Patient will require the following post-hospital care: None Practitioner: I am a practitioner with admitting privileges, knowledge of patient current condition, hospital course, and medical plan of care. Services: Services provided to patient in accordance with Admission requirements found in Title 42 Section 412.3 of the Code of Federal Regulations Patient History Date of Service: 09/20/19 Reason for admission: Septic shock/hypertensive emergency/flash pulmonary edema History of Present Illness: Patient is an 84-year-old gentleman who came to the hospital with fever of 105. Patient had shortness of breath and patient blood pressure was elevated at 200/120. Patient was placed on BiPAP support. Patient was placed on a nitro drip and had been given diuretics in the emergency room. Patient's hemodynamics improved in the emergency room. Patient was sent to ICU for close monitoring. Patient workup revealed a right lower lobe pneumonia. Patient also had an elevated procalcitonin level and acute renal insufficiency. Patient's D-dimer was elevated. Patient also had an elevated troponin and BNP level. Patient will be admitted to the hospital for further evaluation. Patient is lethargic and answers a lot of my questions but he really is not able to give me much history. He appears to get really fatigued quickly. He does have some complaints of his lower extremities as well. They are swollen but on palpation he does have some pain on the left side. This will need to be monitored closely. Patient also has some incidental findings on the CT scan. Along with a right lower lobe pneumonia patient also had cystic changes in bilateral kidneys. However there was 1 large cyst that could not be excluded for malignancy. This will need to be further evaluated as an outpatient. Allergies sulfamethoxazole [From Bactrim] Allergy (Verified 09/21/19 02:36) Shortness of breath trimethoprim [From Bactrim] Allergy (Verified 09/21/19 02:36) Shortness of breath Home Medications: Aspirin Chewable [Aspirin Chewable*] 81 mg PO DAILY 09/21/19 Multivitamin [Multivitamins] 1 tab PO DAILY 09/21/19 - Past Medical/Surgical History Past Medical History: Unable to obtain Past Surgical History: Unable to obtain - Family History Father Family History: Reviewed- Non-Contributory - Social History Smoking Status: Never smoker Alcohol use: No CD- Drugs: No Caffeine use: No Place of Residence: Home Review of Systems is unable to be obtained Physical Examination - Vital Signs Temperature: 98.9 F Blood Pressure: 120/67 Pulse: 88 Respirations: 22 Pulse Ox (%): 96 - Physical Exam General: Alert, In no apparent distress, Confused HEENT: Atraumatic, PERRLA, Mucous membr. moist/pink, EOMI, Sclerae nonicteric Neck: Supple, 2+ carotid pulse no bruit, No LAD, Without JVD or thyroid abnormality Respiratory: Clear to auscultation bilaterally, Normal air movement Cardiovascular: Regular rate/rhythm, Normal S1 S2, Systolic murmur Gastrointestinal: Normal bowel sounds, Soft and benign, Non-distended, No tenderness Musculoskeletal: No tenderness, Swelling Integumentary: No rashes Neurological: Normal speech, Normal tone, Sensation intact, Cranial nerves 3-12 intact, Normal affect, Abnormal gait, Abnormal strength Lymphatics: No axilla or inguinal lymphadenopathy - Studies Laboratory Data (last 24 hrs) 09/20/19 15:11: WBC 16.4 H, Hgb 10.8 L, Hct 32.8 L, Plt Count 205 09/20/19 15:11: Sodium 132 L, Potassium 4.0, BUN 19 H, Creatinine 1.31 H, Glucose 119 H, Magnesium 1.6 L, Total Bilirubin 0.7, AST 31, ALT 15, Alkaline Phosphatase 68, Lipase 82 09/20/19 15:11: PT 14.4 H, INR 1.23, APTT 31.8 Microbiology Data (last 24 hrs): 09/20/19 15:30 Nasoph[facility] Coronavirus COVID-19 PCR - Final 09/20/19 15:30 Nasoph[facility] Influenza Type A Antigen Screen - Final 09/20/19 15:30 Nasopharnyx Influenza Type B Antigen Screen - Final Assessment & Plan - Problems (Diagnosis) (1) Septic shock Current Visit: Yes Status: Acute (2) Elevated procalcitonin Current Visit: Yes Status: Acute (3) Hypertensive emergency Current Visit: Yes Status: Acute (4) Fever Current Visit: Yes Status: Acute (5) Flash pulmonary edema Current Visit: Yes Status: Acute (6) Renal mass Current Visit: Yes Status: Acute (7) Elevated brain natriuretic peptide (BNP) level Current Visit: Yes Status: Acute (8) Elevated troponin Current Visit: Yes Status: Acute (9) Acute kidney injury Current Visit: Yes Status: Acute (10) Leukocytosis Current Visit: Yes Status: Acute - Plan Plan: 1. IV antibiotic therapy 2. Monitor hemodynamics closely 3. Antipyretics 4. Monitor blood pressure and oxygenation closely 5. Repeat procalcitonin level 6. Monitor white blood cell count closely 7. COVID-19 testing 8. Blood cultures x 2 9. Echocardiogram 10. GI and DVT prophylaxis Discharge Plan: Home Plan to discharge in: Greater than 2 days - Advance Directives Does patient have a Living Will: No Does patient have a Durable POA for Healthcare: No - Code Status/Comfort Care Code Status Assessed: Yes Code Status: Full Code Critical Care: Yes Time Spent Managing PTS Care (In Minutes): 50
[2019-09-21] MEDS ORDERED: NA CHLORIDE 0.9% 1,000 ML IV SCH (07:00)
[2019-09-21 07:04] VITALS: BMI 23.6
--- NOTE | 2019-09-21 07:13 | P.PN ---
Subjective Date of Service: 09/21/19 Patient more awake. However, still having fevers of 102. Hemodynamically he is improved in his respiratory status is improved as well. Review of Systems 10-point ROS is otherwise unremarkable Physical Examination - Vital Signs Temperature: 102 F Blood Pressure: 110/67 Pulse: 88 Respirations: 22 Pulse Ox (%): 96 - Physical Exam General: Alert, In no apparent distress, Confused Respiratory: Crackles/rales Cardiovascular: Regular rate/rhythm, Normal S1 S2 - Studies Laboratory Data (last 24 hrs) 09/20/19 15:11: WBC 16.4 H, Hgb 10.8 L, Hct 32.8 L, Plt Count 205 09/20/19 15:11: Sodium 132 L, Potassium 4.0, BUN 19 H, Creatinine 1.31 H, Glucose 119 H, Magnesium 1.6 L, Total Bilirubin 0.7, AST 31, ALT 15, Alkaline Phosphatase 68, Lipase 82 09/20/19 15:11: PT 14.4 H, INR 1.23, APTT 31.8 Microbiology Data (last 24 hrs): 09/20/19 15:30 Nas[facility] Coronavirus COVID-19 PCR - Final 09/20/19 15:30 Nas[facility] Influenza Type A Antigen Screen - Final 09/20/19 15:30 Nasopharnyx Influenza Type B Antigen Screen - Final Assessment & Plan - Problems (Diagnosis) (1) Septic shock Current Visit: Yes Status: Acute (2) Elevated procalcitonin Current Visit: Yes Status: Acute (3) Hypertensive emergency Current Visit: Yes Status: Acute (4) Fever Current Visit: Yes Status: Acute (5) Flash pulmonary edema Current Visit: Yes Status: Acute (6) Renal mass Current Visit: Yes Status: Acute (7) Elevated brain natriuretic peptide (BNP) level Current Visit: Yes Status: Acute (8) Elevated troponin Current Visit: Yes Status: Acute (9) Acute kidney injury Current Visit: Yes Status: Acute (10) Leukocytosis Current Visit: Yes Status: Acute - Plan Plan: continue with current plan of care as mentioned below 1. IV antibiotic therapy 2. Monitor hemodynamics closely 3. Antipyretics 4. Monitor blood pressure and oxygenation closely 5. Repeat procalcitonin level 6. Monitor white blood cell count closely 7. COVID-19 testing 8. Blood cultures x 2 9. Echocardiogram 10. GI and DVT prophylaxis - Advance Directives Does patient have a Living Will: No Does patient have a Durable POA for Healthcare: No - Code Status/Comfort Care Code Status: Full Code Sepsis Focused Assessment - Focused Assessment Complete? Sepsis Focused Assessment Completed?: Yes - Sepsis Screen Result Severe Sepsis: Positive - Evaluation Current stage of sepsis: Severe sepsis - Vital Signs Reviewed: Yes Temperature: 102 F Heart rate: 88 Blood Pressure: 110/67 Respiratory Rate: 22 O2 Sat by Pulse Oximetry: 96 - Examination Date exam was performed: 09/21/19 Time exam was performed: 01:30 Heart: Regular rate/rhythm Lungs: Crackles Peripheral pulse location: Radial Capillary refill: <2 Seconds Skin examination: Normal turgor
[2019-09-21] MEDS ORDERED: POTASSIUM 25 MEQ EFFERV TAB PO ONE ×2 (08:00→16:00)
[2019-09-21] MEDS ORDERED: ENOXAPARIN 40 MG/0.4 ML SQ SCH (09:00)
--- NOTE | 2019-09-21 09:40 | RAD REPORT ---
EXAM DESCRIPTION: Sarina Single View09/21/2019 8:44 am CLINICAL HISTORY: Chest pain COMPARISON: September 19 FINDINGS: Partial resolution in a mild right basilar opacity No other change IMPRESSION: Partial resolution in a mild right lower lobe pneumonia
--- NOTE | 2019-09-21 14:53 | P.CNS ---
Date of Consult: 09/21/19 Reason for Consult: RITO, hematuria, renal mass Requesting Physician: David Badillo Chief Complaint: Septic shock/hypertensive emergency/flash pulmonary edema History of Present Illness: 84 y o male pt with medical hx of HTN, HLD, tobacco use in the past admitted for episode of sob, cough and fever. He was found to have pneumonia and elevated d dimers, bnp and pleural effusions. He also had elevated creatinine of 1.35 which trended up to 1.45 today. CTA pulmonary was done to r/o PE and he was found to have incidental renal masses bilaterally with enlarged right kidney. he was started on iv antibiotics and other chronic home meds were restarted. Nephrology was consulted for treatment recommendations in view of his elevated creatinine and renal mass with hematuria. Allergies sulfamethoxazole [From Bactrim] Allergy (Verified 09/21/19 02:36) Shortness of breath trimethoprim [From Bactrim] Allergy (Verified 09/21/19 02:36) Shortness of breath Home medications list reviewed: Yes Home Medications: Aspirin Chewable [Aspirin Chewable*] 81 mg PO DAILY 09/21/19 Multivitamin [Multivitamins] 1 tab PO DAILY 09/21/19 - Past Medical/Surgical History Diabetic: No - Family History Father Family History: Reviewed- Non-Contributory - Social History Smoking Status: Unknown if ever smoked Alcohol use: No CD- Drugs: No Caffeine use: No Place of Residence: Home Review of Systems 10-point ROS is otherwise unremarkable Physical Examination Temp Pulse Resp BP Pulse Ox 97.5 F 91 H 21 H 108/82 100 09/21/19 12:00 09/21/19 13:00 09/21/19 13:00 09/21/19 13:00 09/21/19 13:00 General: Alert, Oriented x3 HEENT: Atraumatic, Normocephalic Respiratory: Clear to auscultation bilaterally Cardiovascular: Regular rate/rhythm, Normal S1 S2 Gastrointestinal: Normal bowel sounds Musculoskeletal: No clubbing Neurological: Normal speech, Normal strength at 5/5 x4 extr, Cranial nerves 3-12 intact Laboratory Data (last 24 hrs) 09/20/19 15:11: WBC 16.4 H, Hgb 10.8 L, Hct 32.8 L, Plt Count 205 09/20/19 15:11: Sodium 132 L, Potassium 4.0, BUN 19 H, Creatinine 1.31 H, Glucose 119 H, Magnesium 1.6 L, Total Bilirubin 0.7, AST 31, ALT 15, Alkaline Phosphatase 68, Lipase 82 09/20/19 15:11: PT 14.4 H, INR 1.23, APTT 31.8 Conclusions/Impression: Hematuria Renal mass Hypertension Pleural effusion Pneumonia RITO/CKD Anemia Plan: In view of his age and previous use of tobacco there is strong concern for renal/urologic malignancy. His persistent hematuria is perhaps very concerning and his renal mass is also concerning. We will obtain retroperitoneal US to evaluate his kidney, ureter and bladder for further recommendations. We will do bladder irrigation for his hematuria to prevent acute urinary obstruction if his hematuria becomes heavy. Urology consult is highly desirable at this point. For now, we will avoid further contrast exposure and nephrotoxic antibiotics and drugs such as NSAIDS. Other medical managements as per primary team.
--- NOTE | 2019-09-21 15:33 | CON ---
Date of Consultation: 09/21/2019 Patient admitted on 09/20/[address] Badillo. I saw the patient on 09/21/2019. Reason For Consultation: Atrial fibrillation. History Of Present Illness: Mr. Hobbs is an 84-year-old male who has a history of CVA in the past. He came in with sepsis, right lower lobe pneumonia and a temperature of 105, was noted to be in atr ial fibrillation. His troponin was slightly elevated and I was consulted for further evaluation and treatment. Patient himself denied any previous cardiac history. He apparently had a stroke 5 years ago, but according to him, they could not find the reason. I am not so sure whether the atrial fibri llation is new or chronic, but he was not taking any anticoagulants. Past Medical History: CVA. Allergies: TO BACTRIM. Medications: At home include aspirin. Review of Systems: Negative. Social History: Negative. Family History: Negative. Physical Examination: Vital Signs: Stable. He is afebrile now, but his temperature maximum was 105 when he came in. He r emains in atrial fibrillation at a rate of 80. General: He is alert and oriented x3. HEENT: Negative. Neck: Supple without any bruit, lymphadenopathy, JVD, or thyromegaly. Chest: Clear to auscultation and percussion on the left. On the right, he has decreased breath soun ds. Cardiac: Revealed atrial fibrillation with an aortic sclerosis murmur. No gallops or rubs. Abdomen: Benign. Extremities: Revealed no clubbing, cyanosis, or edema. Diagnostic Data: His troponin was 0.1. His BNP was 15,793. Chest x-ray showed right lower lobe pne umonia. Procalcitonin was 14.54, magnesium was 2.2, potassium was 4.0. His creatinine was 1.49. Wh ite count was 17,000. D-dimer is 2592. His blood gases were 157 pO2, pCO2 of 29, and pH is 7.53. Impression And Plan: Atrial fibrillation probably chronic, may have been the reason he had a cerebro vascular accident. His rate is controlled and he is not having any symptoms from it. But I think wi th his age and his history of CVA, I think he definitely needs to be on anticoagulation, preferably E liquis 5 mg b.i.d. I will get a TSH on him. I will get an echocardiogram on him. Continue Lovenox and antibiotics for now. His other problems include renal insufficiency, pneumonia, has had a CT of his head that was negative. CT angiogram was negative despite an elevated D-dimer. I will continue to follow him. JAME/SMITHA Voice ID: [id number] Report ID: [id number]
[2019-09-21] MEDS ORDERED: NACL 0.9% IRR SOLN 2,000 ML IRR PRN (16:52)
--- NOTE | 2019-09-21 18:19 | P.PN ---
Subjective Date of Service: 09/21/19 Chief Complaint: Septic shock/hypertensive emergency/flash pulmonary edema Physical Examination - Vital Signs Temperature: 97.5 F Blood Pressure: 129/77 Pulse: 95 Respirations: 17 Pulse Ox (%): 97 - Studies Laboratory Data (last 24 hrs) 09/20/19 15:11: WBC 16.4 H, Hgb 10.8 L, Hct 32.8 L, Plt Count 205 Microbiology Data (last 24 hrs): 09/20/19 15:30 Nasopharnyx Coronavirus COVID-19 PCR - Final 09/20/19 15:30 Nasopharnyx Influenza Type A Antigen Screen - Final 09/20/19 15:30 Nasopharnyx Influenza Type B Antigen Screen - Final Assessment & Plan Physician Review Additional Text: A/P: Hematuria Atrial fibrillation Pneumonia Renal masses Plan: After speaking to . She WANTS NO BLOOD THINNERS. I explained the risk and benefits concerning this. She understands. Will HOLD ALL BLOOD THINNERS. Will discuss with Cardiology. He has hematuria. Will further address. Will discuss with hospitalist Time Spent Managing Pts Care (In Minutes): 35
[2019-09-21 19:22] LABS: Hematocrit 35.3 % (39.6-49.0)
--- NOTE | 2019-09-21 21:56 | RAD REPORT ---
EXAM DESCRIPTION: USExtrem Venous W Compress Bil09/21/2019 9:41 pm CLINICAL HISTORY: Bilateral leg swelling COMPARISON: none FINDINGS: The left popliteal vein, common femoral, superficial femoral, and posterior tibial veins b ilaterally are compressible and demonstrate augmentation. Doppler demonstrates good flow Small amount of acute thrombus is present within the right popliteal vein. The vein is partially comp ressible. IMPRESSION: Small amount of acute thrombus within the right popliteal vein.
--- NOTE | 2019-09-21 22:01 | RAD REPORT ---
EXAM DESCRIPTION: US - Renal Ultrasound-Complete - 09/21/2019 9:41 pm CLINICAL HISTORY: . Renal mass/hematuria COMPARISON: September 20, 2019 CT FINDINGS: The right kidney measures 11 cm with a mildly increased echotexture. The left kidney measures 11 cm with a mildly increased echotexture . Small bilateral renal cysts. Large cystic mass adjacent to the superior aspect of the right kidney is poorly imaged on this exam. A smaller cystic mass superior to the left kidney is also poorly imaged on this exam. Hydronephrosis is not seen. Echogenic material is present within the bladder. IMPRESSION: Echogenic material within the bladder may represent a mass or hematoma. Patient's known cystic masses superior to each kidney are poorly visualized on this examination seco ndary to difficulty with patient positioning. It is recommended that the patient have a CT scan of the abdomen and pelvis with contrast to further evaluate the kidneys and bladder
[2019-09-22] MEDS: PIPER/TAZO/NS 3.375gm 3.375 GM/100 ML BAG IVPB SCH ×2 (01:09→08:20)
[2019-09-22] MEDS: ACETAMINOPHEN 500 MG TAB PO SCH (04:00)
[2019-09-22 06:25] LABS: Thyroid Stimulating Hormone 4.24 uIU/mL (0.360-3.740)
[2019-09-22 08:21] LABS: Absolute Lymphocytes (CBC) 1.1 K/uL (0.7-4.9); Basophils % 0.3 % (0-1.3); Hematocrit 33.8 % (39.6-49.0); Lymphocytes % 9.7 % (15.3-44.8); MPV 8.5 fL (7.6-11.3); RBC Red Blood Cell Count 3.74 M/uL (4.33-5.43)
[2019-09-22 08:32] LABS: Albumin 2.4 g/dL (3.4-5.0); Bilirubin Total 0.3 mg/dL (0.2-1.0); Magnesium 2.4 mg/dL (1.8-2.4); Phosphorus 2.4 mg/dL (2.5-4.9); Potassium 3.6 mmol/L (3.5-5.1); Protein, Total 6.2 g/dL (6.4-8.2)
--- NOTE | 2019-09-22 08:48 | P.DS ---
Discharge Date: 09/22/19 Disposition: ROUTINE DISCHARGE Discharge Condition: GOOD Reason for Admission: Septic shock/hypertensive emergency/flash pulmonary edema - Problems (1) Septic shock Current Visit: Yes Status: Acute (2) Elevated procalcitonin Current Visit: Yes Status: Acute (3) Hypertensive emergency Current Visit: Yes Status: Acute (4) Fever Current Visit: Yes Status: Acute (5) Flash pulmonary edema Current Visit: Yes Status: Acute (6) Renal mass Current Visit: Yes Status: Acute (7) Elevated brain natriuretic peptide (BNP) level Current Visit: Yes Status: Acute (8) Elevated troponin Current Visit: Yes Status: Acute (9) Acute kidney injury Current Visit: Yes Status: Acute (10) Leukocytosis Current Visit: Yes Status: Acute Brief History of Present Illness: Patient is an 84-year-old gentleman who came to the hospital with fever of 105. Patient had shortness of breath and patient blood pressure was elevated at 200/120. Patient was placed on BiPAP support. Patient was placed on a nitro drip and had been given diuretics in the emergency room. Patient's hemodynamics improved in the emergency room. Patient was sent to ICU for close monitoring. Patient workup revealed a right lower lobe pneumonia. Patient also had an elevated procalcitonin level and acute renal insufficiency. Patient's D-dimer was elevated. Patient also had an elevated troponin and BNP level. Patient will be admitted to the hospital for further evaluation. Patient is lethargic and answers a lot of my questions but he really is not able to give me much his tory. He appears to get really fatigued quickly. He does have some complaints of his lower extremities as well. They are swollen but on palpation he does have some pain on the left side. This will need to be monitored closely. Patient also has some incidental findings on the CT scan. Along with a right lower lobe pneumonia patient also had cystic changes in bilateral kidneys. However there was 1 large cyst that could not be excluded for malignancy. This will need to be further evaluated as an outpatient. Vital Signs/Physical Exam: Temp Pulse Resp BP Pulse Ox 97.8 F 101 H 15 125/81 96 09/22/19 04:00 09/22/19 04:00 09/22/19 04:00 09/22/19 04:00 09/22/19 04:00 Laboratory Data at Discharge: WBC 11.3 K/uL (4.3-10.9) H D 09/22/19 08:02 Hgb 11.4 g/dL (13.6-17.9) L 09/22/19 08:02 Hct 33.8 % (39.6-49.0) L 09/22/19 08:02 Plt Count 192 K/uL (152-406) 09/22/19 08:02 PT 14.4 SECONDS (9.5-12.5) H 09/20/19 15:11 INR 1.23 09/20/19 15:11 APTT 31.8 SECONDS (24.3-36.9) 09/20/19 15:11 Sodium 137 mmol/L (136-145) 09/22/19 08:02 Potassium 3.6 mmol/L (3.5-5.1) 09/22/19 08:02 BUN 26 mg/dL (7-18) H 09/22/19 08:02 Creatinine 1.43 mg/dL (0.55-1.3) H 09/22/19 08:02 Glucose 110 mg/dL (74-106) H 09/22/19 08:02 Phosphorus 2.4 mg/dL (2.5-4.9) L 09/22/19 08:02 Magnesium 2.4 mg/dL (1.8-2.4) 09/22/19 08:02 Total Bilirubin 0.3 mg/dL (0.2-1.0) 09/22/19 08:02 AST 81 U/L (15-37) H 09/22/19 08:02 ALT 35 U/L (12-78) 09/22/19 08:02 Alkaline Phosphatase 52 U/L (45-117) 09/22/19 08:02 Troponin I 0.10 ng/mL (0.0-0.045) H 09/21/19 05:18 Lipase 82 U/L (73-393) 09/20/19 15:11 Home Medications: Aspirin Chewable [Aspirin Chewable*] 81 mg PO DAILY 09/21/19 Multivitamin [Multivitamins] 1 tab PO DAILY 09/21/19 Patient Discharge Instructions: OK TO DC IV AND DC HOME. FOLLOW-UP WITH PRIMARY CARE PROVIDER IN 1-2 WEEKS. FOLLOW-UP WITH CARDIOLOGY IN 1-2 WEEKS. RETURN TO THE ER IF. CALL or TEXT DR. MARTINO AT [phone] IF ANY QUESTIONS REGARDING HOSPITAL STAY. PLEASE CALL THE FLOOR AT [phone] IF ANY MEDICATION OR NURSING QUESTIONS. Diet: AHA Activity: Fall precautions
--- NOTE | 2019-09-22 08:52 | P.PN ---
Date of Service: 09/22/19 Had a long discussion with patient's . She does not want him on any blood thinners at this time. I told her of the risk of a pulmonary embolism occurring and she says she will speak with him but they are wanting to come home and arrange all the follow-ups as an outpatient. I did notify her that with his hematuria he needs to be seen as soon as possible. She spoke to her daughter in-law and they will take patient to their urologist. I informed them that he needs to return to the emergency room if he continues to have hematuria that is progressing. I did try to impart to her the emergent nature of his treatment. However, she is worried that he could from all of this, but she wants to take him either to [facility] or to her son's vascular surgeon & urologist. She states that if he does worsen over the next couple of days, she will bring him in to the emergency room were he can get transferred. They been for 63 years and she wants to make this decision together with him so unfortunately, she is going to bring him home and then decide what to do.
--- NOTE | 2019-09-22 11:20 | PN ---
Date of Progress Note: 09/22/2019 Subjective: Mr. Hobbs has a history of congestive heart failure, atrial fibrillation, CVA, was adm itted with sepsis, elevated troponin, right lower lobe pneumonia. His consultation initially was mos tly for his atrial fibrillation, which appears to be chronic. Patient has had a CVA in the past. He was only on aspirin when he came into the hospital. He has an echocardiogram pending for the lesley alonso. He remains in atrial fibrillation, rate controlled. No symptoms. TSH is still pending. I still believe that Mr. Hobbs should be on an anticoagulant other than aspirin, but apparently there is s ome resistance as far as the family is concerned. Dr. Badillo discussing that with them. We will con tinue present treatment for now. JAME/SMITHA Voice ID: [id number] Report ID: [id number]
[2019-09-22 14:47] VITALS: BP 98/69; TEMP 97.8
[2019-09-22 14:56] VITALS: O2SAT 95
--- NOTE | 2019-09-23 20:17 | EKG ---
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 RESULTS: Intervals: Rate: 110 VA: QRSD: 92 QT: 336 QTc: 454 Castana: P: VA: QRS: -57 T: 71 INTERPRETIVE STATEMENTS: Atrial fibrillation with rapid ventricular response with premature ventricular or aberrantly conducted complexes Pulmonary disease pattern Left anterior fascicular block Nonspecific ST and T wave abnormality, probably digitalis effect Abnormal ECG Compared to ECG 12/30/2015 15:56:43 Ventricular premature complex(es) now present Left anterior fascicular block now present ST (T wave) deviation now present Sinus rhythm no longer present Left-axis deviation no longer present Electronically Signed On 09-23-19 20:11:37 CDT by Andrea More
--- NOTE | 2019-09-23 20:17 | EKG ---
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
== END 2019-09-22 14:07 | disposition home or self-care (01) | DRG 871 ==
LOC: ER 14:45 → ERHOLD 20:03 → 3RD-ICU 21:04 → 2ND 09-21 18:15
PROVIDERS: ADMIT Hospitalist; ATTEND Family Medicine
PROC: 8E0ZXY6 Isolation (ICD-10-PCS; principal; 2019-09-20)
DX: A41.9 Sepsis, unspecified organism (principal); J18.9 Pneumonia, unspecified organism; R65.21 Severe sepsis with septic shock; I16.1 Hypertensive emergency; J81.1 Chronic pulmonary edema; N17.9 Acute kidney failure, unspecified; I48.20 Chronic atrial fibrillation, unspecified; N28.89 Other specified disorders of kidney and ureter; D64.9 Anemia, unspecified; R79.89 Other specified abnormal findings of blood chemistry; D72.829 Elevated white blood cell count, unspecified; N18.9 Chronic kidney disease, unspecified; R31.9 Hematuria, unspecified; Z86.73 Personal history of transient ischemic attack (TIA), and cerebral infarction without residual deficits; Z79.82 Long term (current) use of aspirin; Z88.1 Allergy status to other antibiotic agents; Z20.828 Contact with and (suspected) exposure to other viral communicable diseases
CPT/HCPCS: 36415; 70450; 71045; 71275; 76770; 80048; 80053; 80076; 81003; 81015; 82550; 82805; 83605; 83690; 83735; 83880; 84100; 84132; 84145; 84439; 84443; 84484; 85014; 85018; 85025; 85379; 85610; 85730; 87040; 87086; 87088; 87804; 93005; 93970; 94660; 96372; 97161; 97530; 99291; 99292; J0696; J1650; J2543; J3475; J7030; Q9967; U0002

== ENCOUNTER 2019-09-23 09:29 | Emergency (ER) | payer OTHER ==
[2019-09-23 09:56] LABS: Absolute Lymphocytes (CBC) 1.1 K/uL (0.7-4.9); Basophils % 0.4 % (0-1.3); Hematocrit 32.3 % (39.6-49.0); Lymphocytes % 11.1 % (15.3-44.8); MPV 8.4 fL (7.6-11.3); RBC Red Blood Cell Count 3.62 M/uL (4.33-5.43)
[2019-09-23 10:09] LABS: Potassium 3.4 mmol/L (3.5-5.1)
[2019-09-23 10:55] LABS: Protime INR 1.04
[2019-09-23 10:56] LABS: Urine Color RED
[2019-09-23 10:57] LABS: Urine Appearance CLOUDY; Urine Bilirubin NEGATIVE (NEG); Urine Blood 4+ (NEG); Urine Glucose NEGATIVE (NEG); Urine Protein 4+ (NEG); Urine Specific Gravity 1.025 (1.005-1.030); Urine Urobilinogen 0.2 mg/dL (0.2-1.0)
[2019-09-23 10:58] LABS: Urine Microscopic Reflex ORDER UMIC
[2019-09-23 11:00] LABS: Urine Bacteria 20-50 /HPF (NONE SEEN); Urine Culture Reflex Order REFLEXED; Urine RBC >50 /HPF (NONE SEEN)
[2019-09-23 11:01] LABS: Urine Amorphous Sediment 1+ /HPF (NONE SEEN)
--- NOTE | 2019-09-23 12:09 | EDPHYS ---
Physician Documentation [facility] Name: Osmin Hobbs Age: 84 yrs Sex: Male : 1935 Arrival Date: 09/23/2019 Time: 09:36 Bed 15 Private MD: ED Physician Hernan Hernandez HPI: 09/22 09:52 This 84 yrs old Male presents to ER via EMS with complaints of Urinary rn Problem. 09:52 The patient presents with urinary symptoms, hematuria. Onset: The symptoms/episode rn began/occurred last night. Modifying factors: The symptoms are alleviated by nothing, the symptoms are aggravated by urinating. Associated signs and symptoms: The patient has no apparent associated signs or symptoms. Severity of symptoms: At their worst the symptoms were moderate, in the emergency department the symptoms have improved. The patient has experienced a previous episode. The patient has been recently been admitted at [facility]. Patient reports recently admitted to hospital, back today for blood in urine, had difficulty urinating last night, does not recall if urinated today. no fever. No trauma. Dr Lamb called prior to arrival, informed me that patient recently admitted, found to have renal cyst/mass, as well as a thrombosis, after discussion with patient and , they had decided against anticoagulation and discharged recently. . Historical: - Allergies: 09:43 Sulfa (Sulfonamide Antibiotics); iw - Home Meds: 09:43 aspirin 81 mg Oral chew 1 tab once daily [Active]; multivitamin Oral daily [Active]; iw - PMHx: 09:43 CVA; iw - PSHx: 09:43 Hernia repair; iw - Immunization history:: Adult Immunizations. - Family history:: not pertinent. - Social history:: Smoking status: Patient denies any tobacco usage or history of. - Hospitalizations: : The patient was recently seen at [facility]. ROS: 09:52 Constitutional: Negative for fever, chills, and weight loss, Eyes: Negative for injury, rn pain, redness, and discharge, Neck: Negative for injury, pain, and swelling, Cardiovascular: Negative for chest pain, palpitations, and edema, Respiratory: Negative for shortness of breath, cough, wheezing, and pleuritic chest pain, Abdomen/GI: Negative for abdominal pain, nausea, vomiting, diarrhea, and constipation, : hematuria and dysuria MS/Extremity: + right leg "spasms" Skin: Negative for injury, rash, and discoloration, Neuro: Negative for headache, numbness, tingling, and seizure. Exam: 09:52 Constitutional: Thin male, no acute distress Head/Face: Normocephalic, atraumatic. quality internship: dry MM Cardiovascular: Tachycardic, regular Respiratory: No increased work of breathing, no retractions or nasal flaring. Abdomen/GI: soft, non-tender Skin: Warm, dry, + bilateral lower ext erythema and chronic skin changes MS/ Extremity: Pulses equal, no cyanosis. Neurovascular intact. Full, normal range of motion. Equal circumference. Neuro: Awake and alert. Answers all questions. Vital Signs: 09:39 BP 146 / 97; Pulse 105; Resp 16 S; Temp 97.9; Pulse Ox 96% on R/A; iw 11:33 BP 144 / 79; Pulse 100; Resp 20; Pulse Ox 96% on R/A; ca1 12:19 BP 139 / 87; Pulse 106; Resp 16 S; Pulse Ox 98% on R/A; ca1 13:11 BP 149 / 90; Pulse 100; Resp 17 S; Pulse Ox 95% on R/A; ca1 MDM: 09:38 Patient medically screened. rn 12:03 Differential diagnosis: UTI, urinary retention, renal cancer, urinary retention. rn 12:05 Data reviewed: vital signs, nurses notes, lab test result(s), radiologic studies, CT rn scan, and as a result, I will admit patient. Counseling: I had a detailed discussion with the patient and/or guardian regarding: the historical points, exam findings, and any diagnostic results supporting the discharge/admit diagnosis, lab results, radiology results, the need to transfer to another facility, for higher level of care, [facility] does not immediately have the required specialist. Response to treatment: the patient's symptoms have mildly improved after treatment. Admission orders: after a detailed discussion of the patient's condition and case, the admit orders are written by me. ED course: Pt with still gross hematuria, worsening renal function, known renal mass, could be cancer, accepted for transfer given no urology here and worsening symptoms/complications. . 12:08 ED course: Anticoagulation held given known DVT from hospitalization and still gross rn hematuria.. 09/22 09:40 Order name: CBC with Diff; Complete Time: 11:17 rn 09/22 09:40 Order name: Basic Metabolic Panel; Complete Time: 11:17 rn 09/22 09:40 Order name: Urine Culture rn 09/22 09:40 Order name: PT-INR; Complete Time: 11:17 rn 09/22 09:40 Order name: Ptt, Activated; Complete Time: 11:17 rn 09/22 09:40 Order name: IV Start; Complete Time: 09:54 rn 09/22 09:40 Order name: Urine Dipstick-Ancillary (obtain specimen); Complete Time: 10:36 rn 09/22 09:40 Order name: Bladder Scanner: post void; Complete Time: 10:04 rn 09/22 10:34 Order name: UA; Complete Time: 11:17 bd 09/22 10:59 Order name: Urine Microscopic Only; Complete Time: 11:17 EDFL 09/22 11:20 Order name: Rios; Complete Time: 11:32 rn Administered Medications: No medications were administered Disposition: 09/23/19 12:08 Transfer ordered to [facility]. Diagnosis are Hematuria, unspecified, Urinary Retention, Acute kidney failure, Acute embolism and thrombosis of unspecified deep veins of right distal lower extremity. - Reason for transfer: Higher level of care. - Accepting physician is . - Condition is Stable. - Problem is an ongoing problem. - Symptoms have worsened. Signatures: Dispatcher [employer] [facility] Wendi Chavez RN RN iw Nieto, Roman, MD MD rn AcobCheri RN RN ca1 Corrections: (The following items were deleted from the chart) 11:03 09:41 UA MICROSCOPIC+U.LAB.BRZ ordered. [facility] 11:43 09:52 Constitutional: Thin male, no acute distress Head/Face: Normocephalic, rn atraumatic. ENT: dry MM Cardiovascular: Tachycardic, regular Respiratory: No increased work of breathing, no retractions or nasal flaring. Abdomen/GI: soft, non-tender Skin: Warm, dry MS/ Extremity: Pulses equal, no cyanosis. Neurovascular intact. Full, normal range of motion. Equal circumference. Neuro: Awake and alert. Answers all questions. rn 13:13 12:08 09/23/2019 12:08 Transfer ordered to [facility]. Diagnosis is Hematuria, ca1 unspecified; Urinary Retention; Acute kidney failure; Acute embolism and thrombosis of unspecified deep veins of right distal lower extremity. Reason for transfer: Higher level of care. Accepting physician is . Condition is Stable. Problem is an ongoing problem. Symptoms have worsened. rn
--- NOTE | 2019-09-23 12:09 | ER ---
Nurse's Notes [facility] Name: Osmin Hobbs Age: 84 yrs Sex: Male : 1935 Arrival Date: 09/23/2019 Time: 09:36 Bed 15 Private MD: Diagnosis: Hematuria, unspecified;Urinary Retention;Acute kidney failure;Acute embolism and thrombosis of unspecified deep veins of right distal lower extremity Presentation: 09/22 09:39 Chief complaint: EMS states: pt has had difficulty urinating since yesterday and today iw appeared to have blood in his urine. Coronavirus screen: Proceed with normal triage. Patient denies a cough. Patient denies shortness of breath or difficulty breathing. Patient denies measured and/or subjective temperature greater than 100.4F prior to today's visit. Patient denies travel on a cruise ship or to a country the [facility] currently lists as an affected area. Patient denies contact with known and/or suspected case of COVID-19. Ebola Screen: Patient negative for fever greater than or equal to 101.5 degrees Fahrenheit, and additional compatible Ebola Virus Disease symptoms Patient denies exposure to infectious person. Patient denies travel to an Ebola-affected area in the 21 days before illness onset. No symptoms or risks identified at this time. 09:39 Method Of Arrival: EMS: [facility] iw 09:43 Initial Sepsis Screen: Does the patient meet any 2 criteria? No. Patient's initial iw sepsis screen is negative. Does the patient have a suspected source of infection? No. Patient's initial sepsis screen is negative. Risk Assessment: Do you want to hurt yourself or someone else? Patient reports no desire to harm self or others. Onset of symptoms was September 22, 2019. 09:43 Acuity: CESARIO 3 iw 10:10 Care prior to arrival: IV initiated. 18 GA, in the left antecubital area. iw Historical: - Allergies: 09:43 Sulfa (Sulfonamide Antibiotics); iw - Home Meds: 09:43 aspirin 81 mg Oral chew 1 tab once daily [Active]; multivitamin Oral daily [Active]; iw - PMHx: 09:43 CVA; iw - PSHx: 09:43 Hernia repair; iw - Immunization history:: Adult Immunizations. - Family history:: not pertinent. - Social history:: Smoking status: Patient denies any tobacco usage or history of. - Hospitalizations: : The patient was recently seen at [facility]. Screenin:10 Abuse screen: Denies threats or abuse. Denies injuries from another. Nutritional iw screening: No deficits noted. Tuberculosis screening: No symptoms or risk factors identified. Fall Risk Secondary diagnosis (15 points) impaired mobility, CVA, IV access (20 points). Assessment: 10:08 General: Appears in no apparent distress. Behavior is calm, cooperative. Pain: iw Complains of pain in right calf and right sanford. Neuro: Level of Consciousness is awake, alert, obeys commands, Oriented to person, place, time, Weakness in right arm(s) leg(s). Cardiovascular: Denies chest pain, Patient's skin is warm and dry. Edema. Respiratory: Airway is patent Respiratory effort is even, unlabored, Respiratory pattern is regular. GI: Abdomen is flat. : Urine is blood tinged, Genitalia appear normal Last void was September 23, 2019. Derm: Skin is fragile, is thin, Skin is normal. Musculoskeletal: Range of motion: limited in right elbow and right wrist. 10:38 Reassessment: Rios catheter inserted, gross hematuria noted, no clots noted, urine iw flowing freely, approx 250 mL output, Dr. Hernandez notified, order for bladder irrigation. 11:33 Reassessment: Patient appears in no apparent distress at this time. No changes from ca1 previously documented assessment. Patient and/or family updated on plan of care and expected duration. Pain level reassessed. Patient is alert, oriented x 3, equal unlabored respirations, skin warm/dry/pink. 12:26 Reassessment: Patient appears in no apparent distress at this time. Patient and/or ca1 family updated on plan of care and expected duration. Pain level reassessed. Patient is alert, oriented x 3, equal unlabored respirations, skin warm/dry/pink. 12:33 Reassessment: Report given to ADRIÁN Posey at [facility]. ca1 13:11 Reassessment: Patient appears in no apparent distress at this time. Patient is alert, ca1 oriented x 3, equal unlabored respirations, skin warm/dry/pink. Vital Signs: 09:39 BP 146 / 97; Pulse 105; Resp 16 S; Temp 97.9; Pulse Ox 96% on R/A; iw 11:33 BP 144 / 79; Pulse 100; Resp 20; Pulse Ox 96% on R/A; ca1 12:19 BP 139 / 87; Pulse 106; Resp 16 S; Pulse Ox 98% on R/A; ca1 13:11 BP 149 / 90; Pulse 100; Resp 17 S; Pulse Ox 95% on R/A; ca1 ED Course: 09:36 Patient arrived in ED. iw 09:38 Hernan Hernandez MD is Attending Physician. rn 09:39 Wendi Chavez RN is Primary Nurse. iw 09:43 Arm band placed on. iw 09:44 Triage completed. iw 10:00 Patient has correct armband on for positive identification. Placed in gown. Bed in low ca1 position. Call light in reach. Side rails up X2. air sampling and monitoring on. Pulse ox on. NIBP on. 10:00 Warm blanket given. ca1 10:10 Maintain EMS IV. Dressing intact. Good blood return noted. Site clean \T\ dry. Gauge \T\ iw site: 18 LAC. 11:00 Rios cath inserted, using sterile technique, 16 Fr., by ED staff, balloon inflated, to ca1 gravity drainage, urine specimen collected. returned bloody urine. Patient tolerated well. 11:16 Bladder irrigated via Rios with 250 ml normal saline returned with clots. Irrigated ca1 til clear Patient tolerated well. 12:24 No provider procedures requiring assistance completed. Patient transferred, IV remains ca1 in place. 12:38 pt accepted in transfer to [place] [address] room 965. bd Administered Medications: No medications were administered Outcome: 12:08 ER care complete, transfer ordered by . rn 13:13 Transferred by ground EMS to [facility], Transfer form ca1 completed. 13:13 Condition: stable 13:13 Instructed on the need for transfer. 13:13 Patient left the ED. ca1 Signatures: Yue Guillen Irene, ADRIÁN RN Hernan Hernandez MD MD rn Acob, ADRIÁN Alonzo RN ca1 Corrections: (The following items were deleted from the chart) 11:35 11:33 BP 144 / 79; Pulse 111bpm; Resp 20bpm; Pulse Ox 96% RA; ca1 ca1
[2019-09-23 13:28] VITALS: TEMP 97.9
[2019-09-23 13:31] VITALS: BP 149/90; O2SAT 95
== END 2019-09-23 13:13 | disposition short-term general hospital (02) ==
LOC: ER 09:29
DX: R33.9 Retention of urine, unspecified (principal); N17.9 Acute kidney failure, unspecified; I82.401 Acute embolism and thrombosis of unspecified deep veins of right lower extremity; Z79.82 Long term (current) use of aspirin; Z88.2 Allergy status to sulfonamides
CPT/HCPCS: 36415; 51700; 51702; 80048; 81003; 81015; 85025; 85610; 85730; 87086; 87088; 99285

== ENCOUNTER 2019-10-05 16:27 | Emergency (ER) | payer OTHER ==
--- OUTSIDE RECORDS SUMMARY | 2019-10-05 16:30 | XMS REPORT | Summary of Care ---
:1935 Author Organization [facility] Address [address] [place] [id number] Care Team Providers Name Role Phone Cory Sadie Primary Care Provider Reason for Visit Reason Comments Transition Of Care Encounter Details Date Type Department Care Team Description 10/01/2019 Transition of Care [facility] Naty Mejia Transition Of Care [facility] ADRIÁN [phone] Allergies Active Allergy Reactions Severity Noted Date Comments Sulfa (Sulfonamide Antibiotics) Shortness of Breath documented as of this encounter (statuses as of 10/01/2019) Medications Medication Sig Dispensed Refills Start Date End Date Status aspirin 81 mg chewable Take 81 mg by 0 Active tablet mouth daily. multivitamin tablet Take 1 tablet by 0 Active mouth daily. tamsulosin 0.4 mg 24 Take 1 capsule by 30 capsule 5 09/27/2019 Active hr capsuleIndications: mouth daily. Right renal mass, Gross hematuria finasteride 5 mg Take 1 tablet by 90 tablet 3 09/28/2019 Active tabletIndications: mouth daily. Hematuria, unspecified type documented as of this encounter (statuses as of 10/01/2019) Active Problems Problem Noted Date Hematuria 09/23/2019 Acute, but ill-defined, cerebrovascular disease 2014 documented as of this encounter (statuses as of 10/01/2019) Social History Tobacco Use Types Packs/Day Years Used Date Never Assessed Sex Assigned at Date Recorded Not on file Job Start Date Occupation Industry Not on file Not on file Not on file Travel History Travel Start Travel End No recent travel history available. COVID-19 Exposure Response Date Recorded In the last month, have you been in contact with No / Unsure 09/23/2019 1:22 PM CDT someone who was confirmed or suspected to have Coronavirus / COVID-19? documented as of this encounter Last Filed Vital Signs Not on filedocumented in this encounter Plan of Treatment Health Maintenance Due Date Last Done Comments DTaP,Tdap,and Td Vaccines (1 - Tdap) 1946 Zoster Recombinant Vaccine (SHINGRIX) (1 of 2) 1986 Medicare Wellness Visit 2001 PNEUMOCOCCAL VACCINES 65+ (1 of 2 - PCV13) 2001 INFLUENZA VACCINE (Season Ended) 2020 documented as of this encounter Results Not on filedocumented in this encounter Insurance Payer Benefit Plan / Subscriber ID Effective Dates Phone Addre ss Type Group MEDICARE MEDICARE PART xxxxxxxxxxx 2001-Leeanne [phone] [id number] [place] [address] documented as of this encounter
--- OUTSIDE RECORDS SUMMARY | 2019-10-05 16:30 | XMS REPORT | Summary of Care ---
:1935 Author Organization [facility] Address [address] [place] [address] Care Team Providers Name Role Phone HamdenSadie maciel Primary Care Provider Reason for Referral Other (Routine) Status Reason Specialty Diagnoses / Referred By Referred To Procedures Contact Contact New Request Diagnoses Hematuria, unspecified type Noah Lindsay, Noah Lindsay, Procedures Discharge Follow-up: Specialty Provider NOAH LINDSAY; 4-6 Weeks MD SANTANA 301 COUNT [facility]CLUDES THE [facility] 301 COUNT INCLUDES THE [facility] [id number] [place] [id number] Phone: Fax: Other (Routine) Status Reason Specialty Diagnoses / Referred By Referred To Procedures Contact Contact New Request Diagnoses Hematuria, unspecified type Right renal mass Noah Lindsay, oNah Lindsay, Procedures Discharge Follow-up: Specialty Provider NOAH LINDSAY; Other - See Comment MD SANTANA 301 COUNT INCLUDES THE [facility] 301 COUNT INCLUDES THE [facility] [id number] [place] [address] Phone: Fax: MRI/CAT Scan (Routine) Status Reason Specialty Diagnoses / Referred By Referred To Procedures Contact Contact New Request Diagnostic Diagnoses Right renal mass Reynaldo Lamb MD Radiology Procedures CT ABDOMEN PELVIS WO CONTRAST [address] [place] [id number] MRI/CAT Scan (Routine) Status Reason Specialty Diagnoses / Referred By Referred To Procedures Contact Contact New Request Diagnostic Diagnoses History of D[facility] (deep vein thrombosis) [facility] Procedures CT CHEST PULMONARY ANGIOGRAM MD Noah [address] [place], [place] [id number] Radiology Services (Routine) Status Reason Specialty Diagnoses / Referred By Referred To Procedures Contact Contact New Request Diagnostic Diagnoses Right renal mass Muro, Radiology Procedures IR BIOPSY RENAL PERCUTANEOUS WITH ULTRASOUND IR UROLOGIC MD Collin [address] [place] [address]. [place] [address] (VIRGILIO) Status Reason Specialty Diagnoses / Referred By Referred To Procedures Contact Contact New Request Vascular Surgery Procedures Deshawntein, BILATERAL VENOUS MD Noah DUPLEX LOWER [address] [place] [address] EXTREMITY BY [facility] [place] [address] MRI/CAT Scan (STAT) Status Reason Specialty Diagnoses / Referred By Referred To Procedures Contact Contact New Request Diagnostic Diagnoses Hematuria, unspecified type [facility], Radiology Procedures CT ABDOMEN PELVIS W WO CONTRAST MD Noah [address] [place] [address] Reason for Visit Auth/Cert Status Reason Specialty Diagnoses / Referred By Referred To Procedures Contact Contact Transplant Surgery Diagnoses HEMATURIA, URINARY RETENTION, RENAL MASS Elan lemon [address] [place] [address] Encounter Details Date Type Department Care Team Description 09/23/2019 - Hospital Encounter Transplant/Gynecology/ [place], Hematuria 09/28/2019 Oncology (ELAN 9D) MD Noah [address] [address] [id number] [place] [id number] Allergies Active Allergy Reactions Severity Noted Date Comments Sulfa (Sulfonamide Antibiotics) Shortness of Breath documented as of this encounter (statuses as of 09/28/2019) Medications Medication Sig Dispensed Refills Start Date [...] as of this encounter (statuses as of 09/28/2019) Active Problems Problem Noted Date Hematuria 09/23/2019 Acute, but ill-defined, cerebrovascular disease 2014 documented as of this encounter (statuses as of 09/28/2019) Social History Tobacco Use Types Packs/Day Years [...] of this encounter Last Filed Vital Signs Vital Sign Reading Time Taken Comments Blood Pressure 130/74 09/28/2019 4:00 PM CDT Pulse 110 09/28/2019 4:00 PM CDT Temperature 36.7 C (98 F) 09/28/2019 4:00 PM CDT Respiratory Rate 17 09/28/2019 4:00 PM CDT Oxygen Saturation 98% 09/28/2019 4:00 PM CDT Inhaled Oxygen Concentration - - Weight 73.9 kg (163 lb) 09/23/2019 3:00 PM CDT Height 180.3 cm (5' 11") 09/23/2019 3:00 PM CDT Body Mass Index 22.73 09/23/2019 3:00 PM CDT documented in this encounter Discharge Instructions AttachmentsThe following attachments cannot be sent through Care Everywhere. Hematuria (Monegasque)documented in this encounter Progress Notes Antoine Farah RN - 09/28/2019 11:08 AM CDT Care Management Discharge Disposition Note (DCDN) 5-2-1 Interventions: Disease specific education;Intensive medication reconciliation/management;Teachback;Home visit/home health referral;Clear discharge plan;Follow-up appointments;Follow-up phone calls 5-2-1 Providers: Physician;Secretary Receptionist/Cake Froster;Nurse 5-2-1 Patient Capacity Improvements: Avoidance of adverse events/readmission;Transportation arrangements Discharge Plan for ongoing care and services: Durable Medical Equipment;Home Health () Is this a new referral: Yes Patient Choice completed for referred services: Yes DME location: [facility] [address] [facility], [address] [place], [place] () [phone] (F) [phone] Other DME location: Durable Medical Equipment: Bedside Commode;Ney Lift Home Health location: [facility], [address] [place] [address] () [phone] (F) [phone] Discharge location(s): Home Health location: [facility], [address] [facility] [address] [place] [address] () [phone] (F) [phone] DME location: [address], [address] [place], [place] () [phone] (F) [phone] Patient choice completed for referred services: Yes Discussed with patient/patients family involved in decision making: Yes Patient or family caregiver understands, and agrees with discharge plan. Community resources/referrals made or provided to patient: No Resources/Referrals: Transportation: Ambulance Mental Status: Alert & Oriented to Person,Place & Time Living Arrangement: Home Other living arrangement: Address of living arrangement: [address] [place] [address] Funding Resources: Medicare A & B Nursing informed of discharge plan: Yes Name of RN informed: Brittnee SAMPSON Estimated discharge date: 09/28/19 Time: 1600 Additional Information: CM/TAD Name & Contact number: ANTOINE FARAH RN Ph. [phone] The following information has been provided to the facility noted above: reason for the patient discharge or transfer; patients physical and psychosocial status; summary of care, treatment, servicesprovided to patient; and the patient progress toward goals. Erica Mcclure OT - 09/27/2019 2:51 PM CDTOCCUPATIONAL THERAPY NOTE: Discharge Recommendations: Primary Discharge Plan: [facility] facility If patient to discharge home today, recommend Home Health OT and Home with 19/12 supervision and physical assistance Equipment Recommendations: Defer to facility, if patient to return home would recommend bedside commode, mechanical lift Precautions: Weight bearing status: NA General: PPE Utilized: Gloves and Surgical mask and Fall Bracing: N/A S: Patient agreeable to participate in occupational therapy. Patient reports that he thought he saw someone walking outside his window, but knows it was just a hallucination. PAIN Pre-treatment: 2/10 pain at right ankle. Post-treatment: 1/10 pain at right ankle. Repositioning Provided. O: Patient found semireclining in bed. Prevalon boots donned. Patient seen this date for the following: Therapeutic Exercise/Procedure Educated Patient about AROM for UCHE UE: shoulder flexion/extension, shoulder circumduction, scapular retraction/protraction, elbow flexion/extension, forearm pronation/supination, wrist flexion/extension, and finger opposition. Patient/caregiver returns demonstration x 10 repetitions as follows: Tactile and verbal cues provided for correct technique. Educated about the importance of complying with all exercises to help increase overall strength, endurance, flexibility, and ROM for self-care independence. Patient/caregiver verbalized understanding to all discussed. Patient left semireclining in bed with call garcia in reach. Prevalon boots donned. A: Patient exhibited Fair participation in therapy and responded well to treatment this session. Poor endurance and Persistent weakness remain(s) a limiting factor. Patient continues to present with Decreased independence with ADL, Decreased functional ROM and Decreased strength/endurance for functional activity and will benefit from continued OT services to address above areas and improve functional status. P: Functional motor treatment, Patient/Caregivier Education, Equipment recommendations, Daily livingactivities and Therapeutic exercises Yossi Chávez OTR, MOT Pager: [phone] License: [id number] Total Timed Treatment Codes: 24 Min Total Treatment Time: 24 Min erek Lawrence PTA - 09/27/2019 1:17 PM CDT Physical Therapy Progress Note: Recommendations: Primary discharge plan: half-way facility If patient desires to return home, patient will require physical assist with all functional mobility, recommend use of ney lift for transfers, wheelchair, 24/7 caregiver and home health PT Equipment recommendations: defer to facility PAIN: denies pain PRECAUTIONS: Weight Bearing Precaution: WBAT General Precautions: PPE used:Gloves and Surgical mask, General, Fall, oxygen: Room air Bracing/Cast present or required:N/A S: Patient agreeable to working with PT. Patient States "I thought I was leaving today but my says she is waiting on the ney lift to be delivered." O: Patient met Semi reclined in bed. Patient seen for the following: Therapeutic exercise: patient educated in Fall prevention, General strengthening, Relaxation/breathing techniques and Safety awareness. Patient supine and instructed in bilateral LE exercises x 20 reps to include: AP, Heel slides, Hip Abd/Add, and SLR, with frequent rest breaks due to LE velocity dependent for muscle spasms After session, patient Semi reclined in bed and call garcia provided. A: Patient able to increase repetitions for leg exercises today. Patient tolerated session fair. Patient progressing toward goals #3. P: PT will - progress strength, endurance, and mobility Monica Lawrence PTA Pager # [phone] Sup PT Suly Roman Total Timed Tx Codes in Minutes: 32 Min Total Treatment Time in Minutes: 32 Min Antoine Chavez RN - 09/27/2019 10:11 AM CDTCARE COORDINATOR NOTE CC obtained choice note for MADDISON Hobbs [id number] 1935 RE: Care Management Patient Choice Notification Your doctor has recommended that you have post-hospital care services at discharge. You can choose the provider you want, regardless of its relationship with [facility]. We will contact any of the agencieswithin the [facility] network, or any other agency upon your request. The hospital must assist patients, their families, or the patients sales representative health insurance in selecting a post-acute care provider by using and sharing data that includes, but is not limited to, Home Health Agencies, Residential Facilities, Inpatient Rehab, or Behavioral Sciences Instructor Acute Care, [facility] data on quality measures and data on resource use measures. Based on where you live and agency service areas, a list was generated from: Medicare.gov Disclosure: [facility] owns or is affiliated with the following facilities/agencies: [facility] (half-way and rehabilitation) Patient Choice Acknowledgement I, Efrain Hobbs / authorized sales representative health insurance, am aware that I have choice in selecting post-hospital care providers. The hospital has given me a list of providers in the area available to me and/or my authorized sales representative health insurance. My choice(s) are listed below: ? HH: [facility], [address] [facility] [facility] [address] [place] [address] (Ph) [phone] (F) [phone] Your signature on this form indicates that you have been given the following information: I have been advised of my right to choose the providers I wish ? If half-way facilities, long-term acute care hospitals, or home health agencies were recommended, I was given a list of facilities/agencies in my geographic area that deliver these services or ? I have pre-selected or am an established client with a facility/agency and choose to initiate/continue services __patient spouse verbally selected [facility] ___ 09/27/19 Patient/Guardian/Responsible Libertarian Signature Date Signed copy placed on chart to be scanned into Electronic Medical Record Antoine GRACE, RN, CCRN Mohs Surgeon [facility] Care Management [email or web address] [phone] signed by Antoine Farah RN at 09/27/2019 10:12 AM CDTPCollin welch MD - 09/27/2019 8:36 AM CDT Urology Progress Note 09/27/2019 08:36 NAEO, AFVSS, pain well-controlled, tolerating diet, spending time in chair with assistance, continues to void without issue and hematuria largely resolved Vitals: 09/26/19199909/26/19 2330 09/27/19 0410 09/27/19 0733 BP: 130/78 124/86 (!) 148/93 129/85 Pulse: 94 87 85 89 Resp: Temp: 36.7 C (98 F) 36.4 C (97.5 F) 36.4 C (97.5 F) 36.6 C (97.8 F) TempSrc: Oral Oral Oral Axillary SpO2: 97% 97% 98% 95% Weight: Height: Temp (24hrs), Av.5 C (97.7 F), Min:36.4 C (97.5 F), Max:36.7 C (98 F) PHYSICAL EXAM Gen: no acute distress CV: regular rate and rhythm Resp: respirations even and unlabored on room air Abd: soft, non-distended, non-tender, +BS Ext: no edema Intake/Output Summary (Last 24 hours) at 09/27/2019 0836 Last data filed at 09/27/2019 0000 Gross per 24 hour Intake 1292 ml Output Net 1292 ml Labs: CBC BMP PT/INR WBC (10*3/L) Date Value 09/25/2019 7.93 NA (mmol/L) Date Value 09/25/2019 132 (L) No results found for: PT RBC (10*6/L) Date Value 09/25/2019 3.30 (L) K (mmol/L) Date Value 09/25/2019 3.1 (L) INR (no units) Date Value 09/25/2019 1.1 PLT (10*3/L) Date Value 09/25/2019 229 CALCIUM (mg/dL) Date Value 09/25/2019 7.5 (L) HGB (g/dL) Date Value 09/25/2019 9.9 (L) CL (mmol/L) Date Value 09/25/2019 98 aPTT HCT (%) Date Value 09/25/2019 30.0 (L) BUN (mg/dL) Date Value 09/25/2019 27 (H) APTT Patient (Seconds) Date Value 09/23/2019 29 CREATININE (mg/dL) Date Value 09/25/2019 1.11 A/P: Efrain Hobbs is a 84 year old male with PMH of CVA with hematuria and AUR now resolved, CTAP withlarge renal mass and contralateral mass in left kidney, biopsy performed per IR, pathology pending.Patient progressing appropriately and medically fit for discharging - follow-up pathology - pain control per JUL - UOOBTC as able with nursing assistance - continued work with PT while inpatient - home health at time of discharge Collin Muro Urology PGY-2 Associated attestation - Noah Lindsay MD - 09/27/2019 11:47 AM CDTI personally examined the patient on 09/27/[address] Muro's resident note as written. I actively participated in the decision-making process. Please see the resident's note for additional details. Noah Lindsay MD 09/27/2019 11:47 AMAndresJer V RN - 09/26/2019 6:53 PM CDTCare Management Note Addendum 6:53 PM Followed up with patient's spouse Zara Hobbs ([phone], ) regarding home health choice. Patient's spouse would like list that only shows home health companies in patient'sarea of residence. Emailed the list below: [facility] ([address] [place] [address], , ) [facility] [address] [place] [address], [place] [address] (Ph) (F) [phone] [facility] [address] [place] [address] (PH) (F) [phone] [facility] - [address], [place], [place] [address] (P) [phone] (F) [phone] [address] [place] [address] (Ph) [phone] (F) [phone] [facility] ([address] [place], [place] (Ph) [phone] (F) [phone]) Also spoke to patient's spouse about PT/OT recs for wheelchair, patient lift, and bedside commode. Patient's spouse says that patient already has walker, rollator, wheelchair, and scooter, but does nothave a patient lift or bedside commode. CM emailed choice letter to patient's spouse with the following DME companies. Copy of choice letter is below. Referral sent to [employer]. CM covering on 09/26to follow up with patient's spouse for home health choice and also follow up with [facility] regarding DME referral. [facility] ([address], [address] [place], [place] , , Email: [email or web address]), [employer] ([address], [address], [place] [address], , ), [facility] [place] ([facility], [address] [place], [place] [phone] fax ) CM also spoke with patient's spouse about getting in contact with a half-way facility in their area as she said that she may want a SNF in the area to evaluate the patient for admission to SNF if she determines that the patient needs to be placed and cannot be at home. However, patient/spouse would like patient to go home first. Addendum 5:47 PM Home health order written. CM to follow up with patient's spouse for home health choice and send order and referral to chosen company. 09/26/2019 4:11 PM Had extensive discussion with patient and his spouse, Zara Anjel ([phone], .[employer] via telephone. Patient asked CM to speak with patient's spouse regarding discharge planning. Patient's spouse does not want patient to go to SNF because she would not be able to visit him at a SNF and she is concerned that he would decline at a SNF vs at home. Patient's spouse has ordered equipment for patient's use at home that will be delivered to patient's home on 10/03. Patient's spouse wouldlike patient to go home with home health and she would like to review list of home health companies that service their zip code. List of home health companies sent to patient's spouse along with requested information about applying for Medicaid. Referral to home health company will be sent once CM receives choice of home health company from patient/family. Notified primary team Dr. Rivera. Jer Quiros (JV), RN-BC, BSN Mohs Surgeon [facility] Care Management (not for patient use) Office: [phone] [email or web address] Efrain Hobbs [id number] 1935 RE: Care Management Patient Choice Notification Your doctor has recommended that you have post-hospital care services at discharge. You can choose the provider you want, regardless of its relationship with [facility]. We will contact any of the agencieswithin the [facility] network, or any other agency upon your request. The hospital must assist patients, their families, or the patients sales representative health insurance in selecting a post-acute care provider by using and sharing data that includes, but is not limited to, Home Health Agencies, Residential Facilities, Inpatient Rehab, or Behavioral Sciences Instructor Acute Care, [facility] data on quality measures and data on resource use measures. Based on where you live and agency service areas, a list was generated from: Medicare.gov Disclosure: [facility] owns or is affiliated with the following facilities/agencies: [facility] (half-way and rehabilitation) Patient Choice Acknowledgement I, Efrain Hobbs / authorized sales representative health insurance, am aware that I have choice in selecting post-hospital care providers. [facility] has given me a list of providers in the area available to me and/or my authorized sales representative health insurance. My choice(s) are listed below: ? Home Health: Patient/Family will choose. Durable Medical Equipment: [facility] ([address], [address] [place], [place] , , Email: [email or web address]), [employer] ([address], [address], [place] [address], , ), [facility] (formerly [facility], [address], [place], [place] [phone] fax ), Your signature on this form indicates that you have been given the following information: I have been advised of my right to choose the providers I wish ? If half-way facilities, long-term acute care hospitals, or home health agencies were recommended, I was given a list of facilities/agencies in my geographic area that deliver these services or ? I have pre-selected or am an established client with a facility/agency and choose to initiate/continue services 09/26/19 Patient/Guardian/Responsible Libertarian Signature Date Signed copy placed on chart to be scanned into Electronic Medical Record Prasanna Rivera MD - 09/26/2019 1:25 PM CDT Urology Progress Note 09/26/2019 13:25 S: HALI LIU Rios d/c'd yesterday without issue. Patient urinating without difficulty. PT/OT recommend SNF for patient after evaluation. Vitals: 09/25/19 2350 09/26/19 0400 09/26/19 0800 09/26/19 1200 BP: 110/75 121/87 129/84 111/62 Pulse: 82 96 91 90 Resp: 17 18 18 18 Temp: 36.6 C (97.8 F) 36.6 C (97.8 F) 36.6 C (97.9 F) 36.4 C (97.6 F) TempSrc: Oral Oral Oral Axillary SpO2: 95% 95% 97% 95% Weight: Height: Intake/Output Summary (Last 24 hours) at 09/26/2019 1325 Last data filed at 09/25/2019 1600 Gross per 24 hour Intake 580 ml Output Net 580 ml UOP: Not recorded PHYSICAL EXAM Gen: no acute distress CV: regular rate and rhythm Resp: respirations even and unlabored on room air Abd: soft, non-distended, non-tender, +BS Ext: BLE edema CREATININE (mg/dL) Date Value 09/25/2019 1.11 Radiology: Ct Abdomen Pelvis Wo Contrast Result Date: 09/25/2019 Status post right renal and retroperitoneal mass biopsy, respectively. No perinephric or retroperitoneal hematoma. Preliminary Report Dictated by Resident: Reji Crews I, David Renteria MD., have reviewed this study and agree with the above report. Ct Chest Pulmonary Angiogram Result Date: 09/25/2019 No acute pulmonary embolism through the proximal segmental level. Mild pulmonary edema with cardiomegaly. Small right pleural effusion. Right lower lobe atelectasis Dilated main pulmonary artery, measures 3.6 cm, is nonspecific but may represent pulmonary arterial hypertension. Large right renal mass which is better evaluated and characterized on CT abdominal pelvis 4 09/23/2019 Preliminary Report Dictated by Resident: Gladys Lamb I, Elo Fisher MD., have reviewed this study and agree with the above report. Ir Biopsy Renal Percutaneous With Ultrasound Result Date: 09/25/2019 Status post right renal and retroperitoneal mass biopsy, respectively. No perinephric or retroperitoneal hematoma. Preliminary Report Dictated by Resident: Reji Crews I, David Renteria MD., have reviewed this study and agree with the above report. A/P: Efarin Hobbs, 84 year old male with PMH of CVA (on ASA) and recent DVT who presented with hematuria and urinary retention with CT A/P study concerning for large renal/adrenal mass on right kidney. - Follow up Aldosterone, Renin Activity, Catecholamines, and AM Cortisol for workup of mass. - Follow up IR Biospy Pathology - PT/OT: Recommend SNF - Pain: Tylenol PRN - Diet: Regular - DVT: SCDs - Dispo: Care Management has been contacted regarding SNF placement. Prasanna Rivera PGY-1 Urology Associated attestation - Noah Lindsay MD - 09/26/2019 7:29 PM CDTI personally examined the patient on 09/26/[address] Rivera's resident note as written . I actively participated in the decision-making process. Please see the resident's note for additional details. Noah Lindsay MD 09/26/2019 7:29 PMDerek Lawrence PTA - 09/26/2019 8:56 AM CDT Physical Therapy Progress Note: Recommendations: Primary discharge plan: half-way facility If patient desires to return home, patient will require physical assist with all functional mobility, recommend use of ney lift for transfers, wheelchair, 19/12 caregiver and home health PT Equipment recommendations: defer to facility PAIN: denies pain PRECAUTIONS: Weight Bearing Precaution: WBAT General Precautions: PPE used:Gloves and Surgical mask, General, Fall, oxygen: Room air Bracing/Cast present or required:N/A S: Patient agreeable to working with PT. O: Patient met Semi reclined in bed. Patient seen for the following: Therapeutic exercise: patient educated in Fall prevention, General strengthening, Relaxation/breathing techniques and Safety awareness. Patient supine and instructed in bilateral LE exercises x 15 reps to include: AP, Heel slides, Hip Abd/Add, and SLR, with frequent rest breaks due to muscle spasms After session, patient Semi reclined in bed and call garcia provided. A: Patient with increased muscle spasms during leg exercises, however, patient able to increase ROM today. Patient tolerated session fair. Patient progressing toward goals #3. P: PT will - progress strength, endurance, and mobility Monica Lawrence PTA Pager # [phone] Sup PT Suly Abel Total Timed Tx Codes in Minutes: 30 Min Total Treatment Time in Minutes: 30 Min Rosa Maria Calderon LMSW - 09/25/2019 3:50 PM CDTSocial Worker Note SW contacted patient's , Zara Hobbs to provide supportive care services and assistance with discharge planning. Dicussed care needs and possible PT referral for SNF. statesthat patient has been declining at home. She states that patient has had home health PT in the past b ut could not recall name of agency. She also indicated that she would not be opposed to SNF placement, but would prefer HH as first choice. Plan is to follow up with appropriate referral after PT consult. Rosa Maria Gonsalves LMSW Care Management - Cake Froster Office: Suly Mayes, PT - 09/25/2019 9:46 AM CDT09/25/2019 9:46 AM Physical Therapy Note PT consult received and chart reviewed. Attempted to see patient for initial evaluation, however, patient is currently away from unit for procedure. PT will attempt another time as schedule permits. Suly Roman PT, DPT Pager Number: [phone] Total time treatments:0 Total treatment time:0 Prasanna Rivera MD - 09/25/2019 7:11 AM CDT Urology Progress Note 09/25/2019 07:12 S: HALI LIU CBI continuing through night without complication. B/l Venous Doppler Studies did not reveal DVTs. Vitals: 09/24/19 1600 09/24/19 1951 09/25/19 0000 09/25/19 0400 BP: 94/55 103/67 110/70 135/88 Pulse: 80 90 90 96 Resp: 18 18 16 18 Temp: 36.8 C (98.2 F) 36.7 C (98 F) 36.5 C (97.7 F) 36.8 C (98.2 F) TempSrc: Oral Oral Oral Oral SpO2: 94% 98% 97% 96% Weight: Height: Intake/Output Summary (Last 24 hours) at 09/25/2019 0712 Last data filed at 09/25/2019 0556 Gross per 24 hour Intake Output 8200 ml Net -8200 ml UOP: N/A as patient on CBI PHYSICAL EXAM Gen: no acute distress CV: regular rate and rhythm Resp: respirations even and unlabored on room air Abd: soft, non-distended, non-tender, +BS Ext: BLE edema CBI in place, 3-Way Rios in place draining ebony-aid colored urine in bag, clear urine in tubing CREATININE (mg/dL) Date Value 09/25/2019 1.11 Radiology: Ct Abdomen Pelvis W Wo Contrast Result Date: 09/24/2019 1. Large lobulated exophytic mass off the upper pole of the right kidney measures up to 12.8 cm andis concerning for renal cell carcinoma. The mass abuts the right adrenal gland and results in anterior displacement. The mass abuts the right hemidiaphragm and the posterior abdominal wall with suspected focal invasion (7:31 and 605:107). No vascular invasion, buzz, or bone metastasis detected. 2. Aheterogeneously enhancing mass at the interpolar left kidney measures 1.9 cm and is indeterminate but also concerning for renal cell carcinoma. Hyperdensity within the bladder likely represents blood. Rios catheter is seen in the urinary bladder along with focal iatrogenic air. 3. Small right-sided pleural effusion and right lower lobe atelectasis. Preliminary Report Dictated by Resident: Richi Angel I, Annetta Gaming MD., have reviewed this study and agree with the above report. A/P: Efrain Hobbs, 84 year old male with PMH of CVA (on ASA) and recent DVT who presented with hematuria and urinary retention with CT A/P study concerning for large renal/adrenal mass on right kidney. - D/c CBI, will place catheter plug in CBI port - Follow up Aldosterone, Renin Activity, Catecholamines, and AM Cortisol for workup of mass. - IR Mass Biopsy today - PT/OT consult - Pain: Tylenol PRN - Diet: Regular - DVT: SCDs Prasanna Rivera PGY-1 Urology Associated attestation - Noah Lindsay MD - 09/26/2019 9:17 AM CDTI personally examined the patient on 09/25/[address] Rivera's resident note as written . I actively participated in the decision-making process. Please see the resident's note for additional details. Noah Lindsay MD 09/26/2019 9:16 Antoine Valiente RN - 09/24/2019 1:35 PM CDTCare Management Social Functional Assessment Patient Name: Efrain Hobbs Age: [age] year old Sex: male Previous admit date: N/A Current diagnosis and co-morbidities: HEMATURIA, URINARY RETENTION, RENAL MASS Readmission Questions: Was patient discharged from any acute care hospital within the last 30 days: No Social Functional Assessment: Primary language spoken/preferred: Monegasque Mental Status: Alert & Oriented to Person,Place & Time Information given by: Self Patient's support system: Spouse Name and number of support system: Zara Hobbs (spouse) [phone] Primary Milk Inspector: Self MPOA: No Living Arrangement: Home Address of living arrangement : [address] [place] [address] [place] [address] Persons living in home: Same as support system Barriers to returning home: None Baseline functional status- ambulation: Independent Functional status-baseline personal care: Independent Baseline functional status- driving: Independent Baseline functional status- grocery shopping: Independent Functional status-baseline housekeeping: Independent Functional status-baseline meal prep: Independent Current functional status same as prior: Yes Do you have a PCP?: Yes Name of PCP: [facility] Agency: No Provider Services: No DME Company: No Equipment: Walker;Wheelchair: Manual Hemodialysis: No Funding Resources: Medicare A & B Prescription coverage plan: Medicare Part D Pharmacy where meds are filled: Other Other pharmacy: [facility] Anticipated services prior to disharge: Continue Medical Eval Expected mode of discharge transportation: Same as support system Additional Recommendations for DC: Pt states that he can afford all currently prescibed medications and intends to go home with at time of discharge. No needs identified at this time. Additional info required for discharge planning: Pending medical evaluation Recommended discharge plan: Home SFA Complete: Social Functional Assessment complete: Yes Alcohol Use Screening (AUDIT-C) How often do you have a drink containing alcohol?: Never SCORE: 0 Did patient elect to have resources provided: No Role of Care Management explained. Antoine GRACE, RN, CCRN Mohs Surgeon [facility] Care Management [email or web address] [phone] Prasanna ferro MD - 09/24/2019 1:18 PM CDT Urology Progress Note 09/24/2019 13:18 S: HALI LIU CBI continuing through night without complication. CT A/P completed last night Performed manual bladder irrigation via 3-way hematuria catheter with clot returned. Vitals: 09/24/19 0000 09/24/19 0300 09/24/19 0800 09/24/19 1200 BP: 132/86 (!) 151/93 136/90 (!) 146/70 Pulse: 99 96 88 99 Resp: 18 18 18 18 Temp: 36.2 C (97.1 F) 36.2 C (97.1 F) 36.5 C (97.7 F) 36.6 C (97.8 F) TempSrc: Oral Oral Oral Oral SpO2: 97% 99% 93% 99% Weight: Height: Temp (24hrs), Av.4 C (97.6 F), Min:36.2 C (97.1 F), Max:36.7 C (98 F) Intake/Output Summary (Last 24 hours) at 09/24/2019 1318 Last data filed at 09/24/2019 1200 Gross per 24 hour Intake Output 86310 ml Net -56289 ml UOP: N/A as patient on CBI PHYSICAL EXAM Gen: no acute distress CV: regular rate and rhythm Resp: respirations even and unlabored on room air Abd: soft, non-distended, non-tender, +BS Ext: BLE edema CBI in place, 3-Way Rios in place draining red-tinged ebony-aid colored urine CREATININE (mg/dL) Date Value 09/24/2019 1.15 Radiology: Ct Abdomen Pelvis W Wo Contrast Result Date: 09/24/2019 1. Large lobulated exophytic mass off the upper pole of the right kidney measures up to 12.8 cm andis concerning for renal cell carcinoma. The mass abuts the right adrenal gland and results in anterior displacement. The mass abuts the right hemidiaphragm and the posterior abdominal wall with suspected focal invasion (7:31 and 605:107). No vascular invasion, buzz, or bone metastasis detected. 2. Aheterogeneously enhancing mass at the interpolar left kidney measures 1.9 cm and is indeterminate but also concerning for renal cell carcinoma. Hyperdensity within the bladder likely represents blood. Rios catheter is seen in the urinary bladder along with focal iatrogenic air. 3. Small right-sided pleural effusion and right lower lobe atelectasis. Preliminary Report Dictated by Resident: Annetta Correa MD., have reviewed this study and agree with the above report. A/P: Efrain Hobbs, 84 year old male with PMH of CVA (on ASA) and recent DVT who presented with hematuria and urinary retention with CT A/P study concerning for large renal/adrenal mass on right kidney. - Continue CBI - Order BLE Venous Doppler Studies given recent history of DVT and limited ambulation - Order Aldosterone, Renin Activity, Catecholamines, and AM Cortisol for workup of mass. - Continue inpatient admission on floor. - Pain: Tylenol PRN - Diet: Regular - DVT: SCDs Prasanna Rivera PGY-1 Urology Associated attestation - Noah Lindsay MD - 09/24/2019 9:48 PM CDTI personally examined the patient on 09/24/[address] Rivera's resident note as written . I actively participated in the decision-making process. Please see the resident's note for additional details. Plan for biopsy of right renal and suprarenal masses. Noah Lindsay MD 09/24/2019 9:47 PMdocumented in this encounter Plan of Treatment Health Maintenance Due Date Last Done Comments DTaP,Tdap,and Td Vaccines (1 - Tdap) 1946 Zoster Recombinant Vaccine (SHINGRIX) (1 of 2) 1986 Medicare Wellness Visit 2001 PNEUMOCOCCAL VACCINES 65+ (1 of 2 - PCV13) 2001 INFLUENZA VACCINE (Season Ended) 2020 documented as of this encounter Procedures Procedure Name Priority Date/Time Associated Diagnosis Comme nts CT CHEST PULMONARY Routine 09/25/2019 12:23 History of DVT (de ep Results for this ANGIOGRAM PM CDT vein thrombosis) procedure a re in the results section. CT ABDOMEN PELVIS WO Routine 09/25/2019 11:34 Right renal mass Results for this CONTRAST AM CDT procedure are i n the results section. IR BIOPSY RENAL Routine 09/25/2019 11:15 Right renal mass Resu lts for this PERCUTANEOUS WITH AM CDT procedure are in ULTRASOUND the results section. CYTO ORGAN Routine 09/25/2019 10:30 Right renal mass Results for this ASPIRATION-FNA AM CDT procedure are in the results section. CYTO ORGAN Routine 09/25/2019 10:26 Right renal mas s Results for this ASPIRATION-FNA AM CDT Gross hematuria procedure are in the results section. CBC WITH DIFFERENTIAL Routine 09/25/2019 1:16 Re sults for this AM CDT procedure are i n the results section. PROTHROMBIN TIME / Routine 09/25/2019 1:16 Resul ts for this INR AM CDT procedure are i n the results section. BASIC METABOLIC PANEL Routine 09/25/2019 1:16 Re sults for this (NA, K, CL, CO2, AM CDT procedure a re in GLUCOSE, BUN, the results CREATININE, CA) section. RENIN ACTIVITY VIRGILIO 09/24/2019 12:31 Results f or this PM CDT procedure are i n the results section. ALDOSTERONE, SERUM VIRGILIO 09/24/2019 12:31 Resul ts for this PM CDT procedure are i n the results section. BILATERAL VENOUS VIRGILIO 09/24/2019 11:15 DUPLEX LOWER AM CDT EXTREMITY BY VASCULAR LAB CATECHOLAMINES, VIRGILIO 09/24/2019 10:24 Results for this PLASMA FRACT AM CDT procedure are i n the results section. BASIC METABOLIC PANEL Routine 09/24/2019 3:24 Re sults for this (NA, K, CL, CO2, AM CDT procedure a re in GLUCOSE, BUN, the results CREATININE, CA) section. CT ABDOMEN PELVIS W STAT 09/23/2019 11:59 Hematuria, Resu lts for this WO CONTRAST PM CDT unspecified type procedure a re in the results section. CORONAVIRUS COVID-19 STAT 09/23/2019 5:51 Res ults for this TESTING PM CDT procedure are i n the results section. CBC WITH DIFFERENTIAL STAT 09/23/2019 5:04 Re sults for this PM CDT procedure are i n the results section. URINE CULTURE Routine 09/23/2019 5:04 Results fo r this PM CDT procedure are i n the results section. FIBRINOGEN STAT 09/23/2019 5:04 Results for this PM CDT procedure are i n the results section. ACTIVATED PARTIAL STAT 09/23/2019 5:04 Result s for this THRMPLAS GLORIA PM CDT procedure are i n the results section. PROTHROMBIN TIME / STAT 09/23/2019 5:04 Resul ts for this INR PM CDT procedure are i n the results section. CBC WITH DIFFERENTIAL STAT 09/23/2019 5:04 Re sults for this PM CDT procedure are i n the results section. COMP. METABOLIC PANEL STAT 09/23/2019 5:04 Re sults for this (85436) PM CDT procedure are i n the results section. MAGNESIUM STAT 09/23/2019 5:04 Results for this PM CDT procedure are i n the results section. PHOSPHORUS STAT 09/23/2019 5:04 Results for this PM CDT procedure are i n the results section. documented in this encounter Results CT CHEST PULMONARY ANGIOGRAM (09/25/2019 12:23 PM CDT) Specimen Impressions Performed At PACS/VR/DOSE No acute pulmonary embolism through the proximal segmental level. Mild pulmonary edema with cardiomegaly. Small right pleural effusion. Right lower lobe atelectasis Dilated main pulmonary artery, measures 3.6 cm, is nonspecific but may represent pulmonary arterial hypertensio n. Large right renal mass which is better e valuated and characterized on CT abdominal pelvis 4 09/23/2019 Preliminary Report Dictated by Resident: Gladys Lamb I, Elo Fisher MD., have reviewed this study and agree with the above report. Narrative Performed At CT CHEST PULMONARY ANGIOGRAM PACS/VR/DOSE HISTORY: 84 years-old; Male; PE suspecte d, intermediate prob, positive D-dimer COMPARISON: No study prior to 09/20/2019 available TECHNIQUE: Our interpretation of studies performed on 09/20/2019 at an outside institution is limited by factor s including the absence of technical specifics of the image and und isclosed clinical information. Specialists at the institution that performed the stud y may have access to information not available to us that cou ld make a difference in this interpretation. We suggest that you obtain the origina l interpretation from the site where the study was performed. FINDINGS PULMONARY ARTERIES: Enhancement is adequate. There is no acute or chronic pulmonary embolism in the main pulmonary artery and proximal s egmental level. CHEST: Lower neck/thyroid: Unremarkable. Lungs: Motion artifact degrades the imag e. Septal thickening and diffuse hazy appearance of the lung parenchyma. Mild parasepta l emphysema is noted. Streaky opacity in the basal segment of the right lower lobe is noted. Dependent streaky opacities is consisten t with subsegmental atelectasis Central airway: Unremarkable. Pleura: Small right pleural effusion wit h simple internal density. No pleural thickening or pneumothorax. Thoracic aorta and great vessels: Mild atherosclerotic calcification of the aorta. The ascending thoracic aorta [place] ures 3.9 cm. Pulmonary arteries: Normal in caliber. The main pulmon amy artery measures 3.6 cm. Heart and pericardium: Mild coronary arterial calcific ations are present. Mild cardiomegaly. Lymph nodes: No enlarged thoracic lymph nodes. Mediastinum: Unremarkable. Thoracic spine and chest wall: Unremarkable, with norm al thoracic vertebral body heights. Other Lines/Tubes/Devices/Hardware: None Visualized upper abdomen: A large lobulated exophytic mass arising from the superior pole of the right kidney, better evaluated an d characterized on CT abdomen pelvis from 09/23/2019. Procedure Note [facility], Radiant Results Inft User - 2019 5:[address] CHEST PULMONARY ANGIOGRAM HISTORY: 84 years-old; Male; PE suspecte d, intermediate prob, positive D-dimer COMPARISON: No study prior to 09/20/2019 available TECHNIQUE: Our interpretation of studies performed on 09/20/2019 at an outside institution is limited by factor s including the absence of technical specifics of the image and und isclosed clinical information. Specialists at the institution that perf ormed the study may have access to information not available to us that cou ld make a difference in this interpretation. We suggest that you obta in the original interpretation from the site where the study was performed. FINDINGS PULMONARY ARTERIES: Enhancement is adequate. There is no acu te or chronic pulmonary embolism in the main pulmonary artery and proximal s egmental level. CHEST: Lower neck/thyroid: Unremarkable. Lungs: Motion artifact degrades the imag e. Septal thickening and diffuse hazy appearance of the lung parenchyma. Mild paraseptal emphysema is noted. Streaky opacity in the basal segment of the right lower lobe is noted. Dependent streaky opacities is consisten t with subsegmental atelectasis Central airway: Unremarkable. Pleura: Small right pleural effusion wit h simple internal density. No pleural thickening or pneumothorax. Thoracic aorta and great vessels: Mild a therosclerotic calcification of the aorta. The ascending thoracic aorta [place] ures 3.9 cm. Pulmonary arteries: Normal in caliber. T he main pulmonary artery measures 3.6 cm. Heart and pericardium: Mild coronary art erial calcifications are present. Mild cardiomegaly. Lymph nodes: No enlarged thoracic lymph nodes. Mediastinum: Unremarkable. Thoracic spine and chest wall: Unremarka ble, with normal thoracic vertebral body heights. Other Lines/Tubes/Devices/Hardware: None Visualized upper abdomen: A large lobula rich exophytic mass arising from the superior pole of the right kidney, arian r evaluated and characterized on CT abdomen pelvis from 09/23/2019. IMPRESSION No acute pulmonary embolism through the proximal segmental level. Mild pulmonary edema with cardiomegaly. Small right pleural effusion. Right lower lobe atelectasis Dilated main pulmonary artery, measures 3.6 cm, is nonspecific but may represent pulmonary arterial hypertensio n. Large right renal mass which is better e valuated and characterized on CT abdominal pelvis 4 09/23/2019 Preliminary Report Dictated by Resident: Gladys Lamb I, Elo Fisher MD., have reviewed this study and agree with the above report. Performing Organization Address City/State/Zipcode Phone Number PACS/VR/DOSE CT ABDOMEN PELVIS WO CONTRAST (09/25/2019 11:34 AM CDT) Specimen Addenda Addendum by David Renteria DO on 08/29 2:06 PM * * * * * * * * ADDENDUM: * * * * * * * * I, as teaching physician, was present du ring the entire procedure and/or during the hitchcock components. Impressions Performed At PACS/VR/DOSE Status post right renal and retroperitoneal mass biops y, respectively. No perinephric or retroperitoneal hematoma. Preliminary Report Dictated by Resident: Reji Crews I, David Renteria MD., have reviewed this study an d agree with the above report. Narrative Performed At EXAMINATION: ULTRASOUND-GUIDED PERCUTANEOUS RIGHT SALVADOR L AND PACS/VR/DOSE RETROPERITONEAL MASS BIOPSIES (BIOPSY X 2). EXAMINATION: CT ABDOMEN PELVIS WITHOUT C ONTRAST. HISTORY/INDICATION: 84 y.o. M with 2x large right retr operitoneal masses, appearance of 1 mass originating from kidney but large r more cephalad mass unclear etiology, request biopsy of both masses PROCEDURE SEDATION: Moderate sedation was administ ered under the attending physician's direction and continuous mon itoring by a trained nurse specialist who was independent from thos e actually performing the procedure. Please see EMR for total charlee tored sedation time. TECHNIQUE: The risks, benefits and alternatives were d iscussed and informed consent was obtained. Prior to beginning the procedure , Bloomery Protocol was performed to confirm the patient's identity and th e planned procedure. Maximum sterile barriers including cap, mask, hand hyg iene, sterile gloves, sterile gown, large sterile drape and cu taneous antisepsis were used. The right kidney and retroperitoneal masses were local ized using ultrasound guidance. A safe route, free of overlyin g structures was identified. The area over this site was anesthetized wit h 1 percent lidocaine. A 17 gauge coaxial needle was advanced i nto the right kidney mass and retroperitoneal mass, respectively, usin g real-time ultrasound guidance. Two 22-gauge FNA passes were performed f or each of the biopsy sites. 18 gauge biopsy devices were advanced into the right kidney mass and retroperitoneal substances using real-time ultrasound guidance and a series of 2 renal and 3 retroperitoneal specime ns were obtained, respectively. These tissue cores were transferred to [facility] appropriate containers for surgical pathology. At the end of the procedure, the biopsy devices were r emoved and pressure held until hemostasis was achieved. ESTIMATED BLOOD LOSS: Minimal. CONDITION: Stable. DISCHARGE TO: Patient care division. FINDINGS: Initial ultrasound images demo nstrate right renal and retroperitoneal masses. Final ultrasound images demons trate no significant perinephric hematoma. Successful image guided percutaneous rig ht renal and retroperitoneal biopsies. CT ABDOMEN PELVIS COMPARISON: CT abdomen pelvis 09/22/2018. DOSE: 1389 mGycm TECHNIQUE AND FINDINGS: Axial imaging fr om the level of the lung bases through the pubic symphysis was performe d without the intravenous administration of contrast. Coronal and sagittal reconstructions were obtained. Auto mA and/or iterative rec onstruction were used to reduce radiation dose. LOWER THORAX: Scattered bilateral lower lobe subsegmental/dependent atelectasis and subpleural cystic changes, right great er than left. Trace right pleural effusion with adjacent com pressive atelectasis. Moderate cardiomegaly. LIVER: No focal hepatic lesions. Blanca l liver contour. GALLBLADDER AND BILIARY TREE: No biliary ductal dilati on. No gallbladder wall thickening. SPLEEN: No splenomegaly. Punctate calcif ied splenic granulomas. PANCREAS: No ductal dilation or masses. ADRENAL GLANDS: No adrenal nodules. Righ t adrenal gland is anteriorly displaced as before. KIDNEYS/RETROPERITONEUM: Unchanged right renal and retroperitoneal lobulated masses, better evaluated on re cent prior CT. Changes of recent percutaneous tissue sampling with foci o f gas within the right superior renal pole, perinephric, and retroperito steffi regions. No discrete surrounding hematoma. Left renal hypodensities are also better evaluated on the recent prior CT, but are unchanged. LYMPH NODES: No lymphadenopathy. GI TRACT: No dilation or wall thickening . PELVIS/BLADDER: Mild asymmetric thickeni ng of the mostly decompressed urinary bladder which contains a Rios catheter and tr trevor intraluminal gas. VESSELS: Moderate calcified atherosclero tic plaque. BONES AND SOFT TISSUES: No suspicious ly tic or sclerotic bony lesions. Transitional lumbosacral anatomy. Grade 1 anterolisthesis of L4 on L5. Procedure Note [facility], Radiant Results Inft User - 2019 11:25 PM CDT EXAMINATION: ULTRASOUND-GUIDED PERCUTANEOUS RIGHT RENAL AND RETROPERITONEAL MASS BIOPSIES (BIOPSY X 2). EXAMINATION: CT ABDOMEN PELVIS WITHOUT C ONTRAST. HISTORY/INDICATION: 84 y.o. M with 2x la rge right retroperitoneal masses, appearance of 1 mass originating from ki dney but larger more cephalad mass unclear etiology, request biopsy of both masses PROCEDURE SEDATION: Moderate sedation was administ ered under the attending physician's direction and continuous mon itoring by a trained nurse specialist who was independent from thos e actually performing the procedure. Please see EMR for total charlee tored sedation time. TECHNIQUE: The risks, benefits and alter natives were discussed and informed consent was obtained. Prior to beginning the procedure, Bloomery Protocol was performed to confirm the patient's i dentity and the planned procedure. Maximum sterile barriers including cap, mask, hand hygiene, sterile gloves, sterile gown, large sterile drape and cu taneous antisepsis were used. The right kidney and retroperitoneal mas ses were localized using ultrasound guidance. A safe route, free of overlyin g structures was identified. The area over this site was anesthetized wit h 1 percent lidocaine. A 17 gauge coaxial needle was advanced i nto the right kidney mass and retroperitoneal mass, respectively, usin g real-time ultrasound guidance. Two 22-gauge FNA passes were performed f or each of the biopsy sites. 18 gauge biopsy devices were advanced into the right kidney mass and retroperitoneal substances using real-ti me ultrasound guidance and a series of 2 renal and 3 retroperitoneal specime ns were obtained, respectively. These tissue cores were [facility] to [facility] appropriate containers for surgical pathology. At the end of the procedure, the biopsy devices were removed and pressure held until hemostasis was achieved. ESTIMATED BLOOD LOSS: Minimal. CONDITION: Stable. DISCHARGE TO: Patient care division. FINDINGS: Initial ultrasound images demo nstrate right renal and retroperitoneal masses. Final ultrasound images demonstrate no significant perinephric hematoma. Successful image guided percutaneous rig ht renal and retroperitoneal biopsies. CT ABDOMEN PELVIS COMPARISON: CT abdomen pelvis 09/22/2018. DOSE: 1389 mGycm TECHNIQUE AND FINDINGS: Axial imaging fr om the level of the lung bases through the pubic symphysis was performe d without the intravenous administration of contrast. Coronal and sagittal reconstructions were obtained. Auto mA and/or iterative lorenza nstruction were used to reduce radiation dose. LOWER THORAX: Scattered bilateral lower lobe subsegmental/dependent atelectasis and subpleural cystic change s, right greater than left. Trace right pleural effusion with adjacent com pressive atelectasis. Moderate cardiomegaly. LIVER: No focal hepatic lesions. Normal liver contour. GALLBLADDER AND BILIARY TREE: No biliary ductal dilation. No gallbladder wall thickening. SPLEEN: No splenomegaly. Punctate calcif ied splenic granulomas. PANCREAS: No ductal dilation or masses. ADRENAL GLANDS: No adrenal nodules. Righ t adrenal gland is anteriorly displaced as before. KIDNEYS/RETROPERITONEUM: Unchanged right renal and retroperitoneal lobulated masses, better evaluated on re cent prior CT. Changes of recent percutaneous tissue sampling with foci o f gas within the right superior renal pole, perinephric, and retroperito steffi regions. No discrete surrounding hematoma. Left renal hypodensities are also better evaluated on the recent prior CT, but are unchanged. LYMPH NODES: No lymphadenopathy. GI TRACT: No dilation or wall thickening . PELVIS/BLADDER: Mild asymmetric thickeni ng of the mostly decompressed urinary bladder which contains a Rios c atheter and trace intraluminal gas. VESSELS: Moderate calcified atherosclero tic plaque. BONES AND SOFT TISSUES: No suspicious ly tic or sclerotic bony lesions. Transitional lumbosacral anatomy. Grade 1 anterolisthesis of L4 on L5. IMPRESSION Status post right renal and retroperiton eal mass biopsy, respectively. No perinephric or retroperitoneal hematoma. Preliminary Report Dictated by Resident: Reji Crews I, David Renteria MD., have reviewed this study and agree with the above report. Performing Organization Address City/State/Zipcode Phone Number PACS/VR/DOSE IR BIOPSY RENAL PERCUTANEOUS WITH ULTRASOUND (09/25/2019 11:15 AM CDT) Specimen Addenda Addendum by David Renteria DO on 08/29 2:06 PM * * * * * * * * ADDENDUM: * * * * * * * * I, as teaching physician, was present du ring the entire procedure and/or during the hitchcock components. Impressions Performed At PACS/VR/DOSE Status post right renal and retroperitoneal mass biops y, respectively. No perinephric or retroperitoneal hematoma. Preliminary Report Dictated by Resident: Reji Crews I, David Renteria MD., have reviewed this study an d agree with the above report. Narrative Performed At EXAMINATION: ULTRASOUND-GUIDED PERCUTANEOUS RIGHT SALVADOR L AND PACS/VR/DOSE RETROPERITONEAL MASS BIOPSIES (BIOPSY X 2). EXAMINATION: CT ABDOMEN PELVIS WITHOUT C ONTRAST. HISTORY/INDICATION: 84 y.o. M with 2x large right retr operitoneal masses, appearance of 1 mass originating from kidney but large r more cephalad mass unclear etiology, request biopsy of both masses PROCEDURE SEDATION: Moderate sedation was administ ered under the attending physician's direction and continuous mon itoring by a trained nurse specialist who was independent from thos e actually performing the procedure. Please see EMR for total charlee tored sedation time. TECHNIQUE: The risks, benefits and alternatives were d iscussed and informed consent was obtained. Prior to beginning the procedure , Bloomery Protocol was performed to confirm the patient's identity and th e planned procedure. Maximum sterile barriers including cap, mask, hand hyg iene, sterile gloves, sterile gown, large sterile drape and cu taneous antisepsis were used. The right kidney and retroperitoneal masses were local ized using ultrasound guidance. A safe route, free of overlyin g structures was identified. The area over this site was anesthetized wit h 1 percent lidocaine. A 17 gauge coaxial needle was advanced i nto the right kidney mass and retroperitoneal mass, respectively, usin g real-time ultrasound guidance. Two 22-gauge FNA passes were performed f or each of the biopsy sites. 18 gauge biopsy devices were advanced into the right kidney mass and retroperitoneal substances using real-time ultrasound guidance and a series of 2 renal and 3 retroperitoneal specime ns were obtained, respectively. These tissue cores were [facility] to [facility] appropriate containers for surgical pathology. At the end of the procedure, the biopsy devices were r emoved and pressure held until hemostasis was achieved. ESTIMATED BLOOD LOSS: Minimal. CONDITION: Stable. DISCHARGE TO: Patient care division. FINDINGS: Initial ultrasound images demo nstrate right renal and retroperitoneal masses. Final ultrasound images demons trate no significant perinephric hematoma. Successful image guided percutaneous rig ht renal and retroperitoneal biopsies. CT ABDOMEN PELVIS COMPARISON: CT abdomen pelvis 09/22/2018. DOSE: 1389 mGycm TECHNIQUE AND FINDINGS: Axial imaging fr om the level of the lung bases through the pubic symphysis was performe d without the intravenous administration of contrast. Coronal and sagittal reconstructions were obtained. Auto mA and/or iterative rec onstruction were used to reduce radiation dose. LOWER THORAX: Scattered bilateral lower lobe subsegmental/dependent atelectasis and subpleural cystic changes, right great er than left. Trace right pleural effusion with adjacent com pressive atelectasis. Moderate cardiomegaly. LIVER: No focal hepatic lesions. Blanca l liver contour. GALLBLADDER AND BILIARY TREE: No biliary ductal dilati on. No gallbladder wall thickening. SPLEEN: No splenomegaly. Punctate calcif ied splenic granulomas. PANCREAS: No ductal dilation or masses. ADRENAL GLANDS: No adrenal nodules. Righ t adrenal gland is anteriorly displaced as before. KIDNEYS/RETROPERITONEUM: Unchanged right renal and retroperitoneal lobulated masses, better evaluated on re cent prior CT. Changes of recent percutaneous tissue sampling with foci o f gas within the right superior renal pole, perinephric, and retroperito steffi regions. No discrete surrounding hematoma. Left renal hypodensities are also better evaluated on the recent prior CT, but are unchanged. LYMPH NODES: No lymphadenopathy. GI TRACT: No dilation or wall thickening . PELVIS/BLADDER: Mild asymmetric thickeni ng of the mostly decompressed urinary bladder which contains a Rios catheter and tr trevor intraluminal gas. VESSELS: Moderate calcified atherosclero tic plaque. BONES AND SOFT TISSUES: No suspicious ly tic or sclerotic bony lesions. Transitional lumbosacral anatomy. Grade 1 anterolisthesis of L4 on L5. Procedure Note [facility], Radiant Results Inft User - 2019 11:25 PM CDT EXAMINATION: ULTRASOUND-GUIDED PERCUTANEOUS RIGHT RENAL AND RETROPERITONEAL MASS BIOPSIES (BIOPSY X 2). EXAMINATION: CT ABDOMEN PELVIS WITHOUT C ONTRAST. HISTORY/INDICATION: 84 y.o. M with 2x la rge right retroperitoneal masses, appearance of 1 mass originating from ki dney but larger more cephalad mass unclear etiology, request biopsy of both masses PROCEDURE SEDATION: Moderate sedation was administ ered under the attending physician's direction and continuous mon itoring by a trained nurse specialist who was independent from thos e actually performing the procedure. Please see EMR for total charlee tored sedation time. TECHNIQUE: The risks, benefits and alter natives were discussed and informed consent was obtained. Prior to beginning the procedure, Bloomery Protocol was performed to confirm the patient's i dentity and the planned procedure. Maximum sterile barriers including cap, mask, hand hygiene, sterile gloves, sterile gown, large sterile drape and cu taneous antisepsis were used. The right kidney and retroperitoneal mas ses were localized using ultrasound guidance. A safe route, free of overlyin g structures was identified. The area over this site was anesthetized wit h 1 percent lidocaine. A 17 gauge coaxial needle was advanced i nto the right kidney mass and retroperitoneal mass, respectively, usin g real-time ultrasound guidance. Two 22-gauge FNA passes were performed f or each of the biopsy sites. 18 gauge biopsy devices were advanced into the right kidney mass and retroperitoneal substances using real-ti me ultrasound guidance and a series of 2 renal and 3 retroperitoneal specime ns were obtained, respectively. These tissue cores were [facility] to [facility] appropriate containers for surgical pathology. At the end of the procedure, the biopsy devices were removed and pressure held until hemostasis was achieved. ESTIMATED BLOOD LOSS: Minimal. CONDITION: Stable. DISCHARGE TO: Patient care division. FINDINGS: Initial ultrasound images demo nstrate right renal and retroperitoneal masses. Final ultrasound images demonstrate no significant perinephric hematoma. Successful image guided percutaneous rig ht renal and retroperitoneal biopsies. CT ABDOMEN PELVIS COMPARISON: CT abdomen pelvis 09/22/2018. DOSE: 1389 mGycm TECHNIQUE AND FINDINGS: Axial imaging fr om the level of the lung bases through the pubic symphysis was performe d without the intravenous administration of contrast. Coronal and sagittal reconstructions were obtained. Auto mA and/or iterative lorenza nstruction were used to reduce radiation dose. LOWER THORAX: Scattered bilateral lower lobe subsegmental/dependent atelectasis and subpleural cystic change s, right greater than left. Trace right pleural effusion with adjacent com pressive atelectasis. Moderate cardiomegaly. LIVER: No focal hepatic lesions. Normal liver contour. GALLBLADDER AND BILIARY TREE: No biliary ductal dilation. No gallbladder wall thickening. SPLEEN: No splenomegaly. Punctate calcif ied splenic granulomas. PANCREAS: No ductal dilation or masses. ADRENAL GLANDS: No adrenal nodules. Righ t adrenal gland is anteriorly displaced as before. KIDNEYS/RETROPERITONEUM: Unchanged right renal and retroperitoneal lobulated masses, better evaluated on re cent prior CT. Changes of recent percutaneous tissue sampling with foci o f gas within the right superior renal pole, perinephric, and retroperito steffi regions. No discrete surrounding hematoma. Left renal hypodensities are also better evaluated on the recent prior CT, but are unchanged. LYMPH NODES: No lymphadenopathy. GI TRACT: No dilation or wall thickening . PELVIS/BLADDER: Mild asymmetric thickeni ng of the mostly decompressed urinary bladder which contains a Rios c atheter and trace intraluminal gas. VESSELS: Moderate calcified atherosclero tic plaque. BONES AND SOFT TISSUES: No suspicious ly tic or sclerotic bony lesions. Transitional lumbosacral anatomy. Grade 1 anterolisthesis of L4 on L5. IMPRESSION Status post right renal and retroperiton eal mass biopsy, respectively. No perinephric or retroperitoneal hematoma. Preliminary Report Dictated by Resident: Reji Crews I, David Renteria MD., have reviewed this study and agree with the above report. Performing Organization Address City/State/Zipcode Phone Number PACS/VR/DOSE CYTO ORGAN ASPIRATION-FNA (09/25/2019 10:30 AM CDT) Case Report FNA Cytology Case: [id number] [facility] Authorizing Provider: Xavier Simons MD Collected: 09/25/2019 1026 SERVICES Ordering Location: Tra nsplant/Gynecology/Onco Received: 09/25/2019 1234 logy (ELAN 9D) Specimens: A) - KIDNEY, R IGHT, ULTRASOUND (US) IMAGE-GUIDED FINE NEEDLE ASPIRATION B) - RETR OPERITONEUM, ULTRASOUND (US) IMAGE-GUIDED FINE NEEDLE ASPIRATION Final Diagnosis A. 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 RETROPERITONEUM, MASS, ULTRASOUND (US ) IMAGE-GUIDED FINE NEEDLE ASPIRATION: 5:32 PM - MALIGNANT SPINDLE CELL NEOPLASM (SEE COMMENT) I have personally reviewed a ll specimens/slides and agree with all statements made by residents, fellows or pathologist assistants whose name(s) may appear on this report. Final Diagnosis A. Smear and cytospin from k idney fine needle aspiration show predominantly blood. There are rare clusters of atypical spindle cells with hyperchromatic pleomorphic nuclei seen. Core biopsy sections rosalia [facility] Comment w spindly tumor cells with h yperchromatic pleomorphic nuclei, irregular nuclear membrane, occasional rhabdoid appearance and intranuclear inclusions. Mitotic figures are seen. SERVICES Immunostains were performed on tumor cells within the block A2 and block A3 show the following results: - A1/A3: rare cells positive - CAM5.2: rare cells positive - PAX-8: Negative - CD34: rare cells patchy weak positive - S100: Negative - SMA: Positive (strongly diffuse) - Desmin: Negative - Caldesmon: Negative - Vimentin: Positive (strongly diffuse) - Myogenin: Negative - HMB-45: Negative - Melan-A: Negative All controls show appropriate reactivity B. Smear and cytospin from r etroperitoneum fine needle aspiration show blood only. Core biopsy sections show the similar malignant spindle cells infiltration. There are alternating hypercellular and hypocellular areas with myxoid stroma. 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 The differential diagnoses include soft tissue sarcoma, primary renal sarcoma, and s arcomatoid carcinoma of kidn ey. Clinical and radiological correlation is recommended. This case has been reviewed by and Dr Madera, who concur with the diagnosis. Clinical right retro [facility] Information peritoneal mass SERVICES Gross Description A1. KIDNEY, RIGHT; ULTRASOU ND (US) IMAGE GUIDED FINE NEEDLE ASPIRATION [facility] Received fresh is 0.4 cc's o f sanguinous material obtained by aspiration (2 needle pass(es)) SERVICES Prepared 6 slides (2 Romanow kiesha stained smear(s), 2 Papanicolaou stained smear(s), and 2 Papanicolaou stained cytospin preparation(s)) A2. KIDNEY, RIGHT; ULTRASOUND (US) IMAGE GUIDED; Core biopsy 1 18-gauge fragmented white / red core biopsy ranging in length from 0.1 to 1 cm placed in formalin on 09/25/2019 1045 hours. Gross description performed by Enrique Cole. Prepared 8 slides (2 H&E and 6 immunostain(s) (AE1/AE3, CK8, Pax8, CD34, S100, SMA) A3. KIDNEY, RIGHT; ULTRASOUND (US) IMAGE GUIDED; Core biopsy 1 18-gauge fragmented white / red core biopsy ranging in length of to 0.5 cm placed in formalin on 09/25/2019 1045 hours. Gross description performed by Enrique Cole. Prepared 8 slides (2 H&E and 6 immunostain(s) (desmin, caldesmon, myogenin, HMB45, Melan-A, Vimentin) Total = 22 slides B1. RETROPERITONEUM; ULTRASOUND (US) IMAGE GUIDED FIN E NEEDLE ASPIRATION Received fresh is 0.4 cc's o f sanguinous material obtained by aspiration (2 needle pass(es)) Prepared 6 slides (2 Romanow kiesha stained smear(s), 2 Papanicolaou stained smear(s), and 2 Papanicolaou stained cytospin preparation(s)) B2. RETROPERITONEUM; ULTRASOUND (US) IMAGE GUIDED; Cor e biopsy 1 18-gauge fragmented white / red core biopsy ranging in length from 0.2 to 2.1 cm placed in formalin on 09/25/2019 1106 hours. Gross description performed by Enrique Cole. Prepared 2 slides (2 H&E) B3. RETROPERITONEUM; ULTRASOUND (US) IMAGE GUIDED; Co re biopsy 1 18-gauge fragmented white / red core biopsy ranging in length from 0.6 to 1.0 cm placed in formalin on 09/25/2019 1106 hours. Gross description performed by Enrique Cole. Prepared 2 slides (2 H&E) Total = 10 slides Slides and collection tubes were labeled onsite with patient name and unique identification number after verification of patient identity. Cytology Rapid A1. KIDNEY, RIGHT; ULTRASOU ND (US) IMAGE GUIDED FINE NEEDLE ASPIRATION [facility] Assessment Rapid on-site evaluation performed by Dr Ospina SERVICES Evaluation Episode # 1 (pass 1-2/2): Blood only. Rare adipose cells. (Preliminary rapid evaluatio n; see final interpretation and comment given above) B1. RETROPERITONEUM; ULTRASOUND (US) IMAGE GUIDED FIN E NEEDLE ASPIRATION Rapid on-site evaluation performed by Dr Ospina Evaluation Episode # 1 (pass 1-2/2): Blood only. (Preliminary rapid evaluatio n; see final interpretation and comment given above) Embedded Images [facility] SERVICES Specimen Aspirate - RETROPERITONEUM KIDNEY, RIGHT Performing Organization Address City/State/Zipcode Phone Number [facility] SERVICES CLIA: [id number], [address] [place], [place] [address] [facility] CYTO ORGAN ASPIRATION-FNA (09/25/2019 10:26 AM CDT) Case Report FNA Cytology Case: [id number] [facility] Authorizing Provider: Xavier Simons MD Collected: 09/25/2019 1026 SERVICES Ordering Location: Tra nsplant/Gynecology/Onco Received: 09/25/2019 1234 logy (ELAN 9D) Specimens: A) - KIDNEY, R IGHT, ULTRASOUND (US) IMAGE-GUIDED FINE NEEDLE ASPIRATION B) - RETR OPERITONEUM, ULTRASOUND (US) IMAGE-GUIDED FINE NEEDLE ASPIRATION Final Diagnosis A. 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 RETROPERITONEUM, MASS, ULTRASOUND (US ) IMAGE-GUIDED FINE NEEDLE ASPIRATION: 5:32 PM - MALIGNANT SPINDLE CELL NEOPLASM (SEE COMMENT) I have personally reviewed a ll specimens/slides and agree with all statements made by residents, fellows or pathologist assistants whose name(s) may appear on this report. Final Diagnosis A. Smear and cytospin from k idney fine needle aspiration show predominantly blood. There are rare clusters of atypical spindle cells with hyperchromatic pleomorphic nuclei seen. Core biopsy sections rosalia [facility] Comment w spindly tumor cells with h yperchromatic pleomorphic nuclei, irregular nuclear membrane, occasional rhabdoid appearance and intranuclear inclusions. Mitotic figures are seen. SERVICES Immunostains were performed on tumor cells within the block A2 and block A3 show the following results: - A1/A3: rare cells positive - CAM5.2: rare cells positive - PAX-8: Negative - CD34: rare cells patchy weak positive - S100: Negative - SMA: Positive (strongly diffuse) - Desmin: Negative - Caldesmon: Negative - Vimentin: Positive (strongly diffuse) - Myogenin: Negative - HMB-45: Negative - Melan-A: Negative All controls show appropriate reactivity B. Smear and cytospin from r etroperitoneum fine needle aspiration show blood only. Core biopsy sections show the similar malignant spindle cells infiltration. There are alternating hypercellular and hypocellular areas with myxoid stroma. 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 The differential diagnoses include soft tissue sarcoma, primary renal sarcoma, and s arcomatoid carcinoma of kidn ey. Clinical and radiological correlation is recommended. This case has been reviewed by and Dr Madera, who concur with the diagnosis. Clinical right retro [facility] Information peritoneal mass SERVICES Gross Description A1. KIDNEY, RIGHT; ULTRASOU ND (US) IMAGE GUIDED FINE NEEDLE ASPIRATION [facility] Received fresh is 0.4 cc's o f sanguinous material obtained by aspiration (2 needle pass(es)) SERVICES Prepared 6 slides (2 Romanow kiesha stained smear(s), 2 Papanicolaou stained smear(s), and 2 Papanicolaou stained cytospin preparation(s)) A2. KIDNEY, RIGHT; ULTRASOUND (US) IMAGE GUIDED; Core biopsy 1 18-gauge fragmented white / red core biopsy ranging in length from 0.1 to 1 cm placed in formalin on 09/25/2019 1045 hours. Gross description performed by Enrique Cole. Prepared 8 slides (2 H&E and 6 immunostain(s) (AE1/AE3, CK8, Pax8, CD34, S100, SMA) A3. KIDNEY, RIGHT; ULTRASOUND (US) IMAGE GUIDED; Core biopsy 1 18-gauge fragmented white / red core biopsy ranging in length of to 0.5 cm placed in formalin on 09/25/2019 1045 hours. Gross description performed by Enrique Cole. Prepared 8 slides (2 H&E and 6 immunostain(s) (desmin, caldesmon, myogenin, HMB45, Melan-A, Vimentin) Total = 22 slides B1. RETROPERITONEUM; ULTRASOUND (US) IMAGE GUIDED FIN E NEEDLE ASPIRATION Received fresh is 0.4 cc's o f sanguinous material obtained by aspiration (2 needle pass(es)) Prepared 6 slides (2 Romanow kiesha stained smear(s), 2 Papanicolaou stained smear(s), and 2 Papanicolaou stained cytospin preparation(s)) B2. RETROPERITONEUM; ULTRASOUND (US) IMAGE GUIDED; Cor e biopsy 1 18-gauge fragmented white / red core biopsy ranging in length from 0.2 to 2.1 cm placed in formalin on 09/25/2019 1106 hours. Gross description performed by Enrique Cole. Prepared 2 slides (2 H&E) B3. RETROPERITONEUM; ULTRASOUND (US) IMAGE GUIDED; Co re biopsy 1 18-gauge fragmented white / red core biopsy ranging in length from 0.6 to 1.0 cm placed in formalin on 09/25/2019 1106 hours. Gross description performed by Enrique Cole. Prepared 2 slides (2 H&E) Total = 10 slides Slides and collection tubes were labeled onsite with patient name and unique identification number after verification of patient identity. Cytology Rapid A1. KIDNEY, RIGHT; ULTRASOU ND (US) IMAGE GUIDED FINE NEEDLE ASPIRATION [facility] Assessment Rapid on-site evaluation performed by Dr Ospina SERVICES Evaluation Episode # 1 (pass 1-2/2): Blood only. Rare adipose cells. (Preliminary rapid evaluatio n; see final interpretation and comment given above) B1. RETROPERITONEUM; ULTRASOUND (US) IMAGE GUIDED FIN E NEEDLE ASPIRATION Rapid on-site evaluation performed by Dr Ospina Evaluation Episode # 1 (pass 1-2/2): Blood only. (Preliminary rapid evaluatio n; see final interpretation and comment given above) Embedded Images [facility] SERVICES Specimen Aspirate - KIDNEY, RIGHT RETROPERITONEUM Performing Organization Address City/[facility]/Zipcode Phone Number [facility] CLIA: [id number], [address] [place] [phone] [facility] PROTHROMBIN TIME / INR (09/25/2019 1:16 AM CDT) PROTIME PATIENT 12.6 10.1 - 12.6 [facility] Seconds SERVICES INR 1.1Comment: Normal [facility] INR <1.1; Warfarin SERVICES Therapeutic range 2.0 to 3.0 or 2.5 to 3.5, depending upon the indications. Specimen Blood - ARM, LEFT Performing Organization Address [facility] Phone Number [facility] CLIA: [id number], [address] [place] [phone] [facility] BASIC METABOLIC PANEL (NA, K, CL, CO2, GLUCOSE, BUN, CREATININE, CA) (09/25/2019 1:16 AM CDT) Pathologist Sig nature NA 132 (L) 135 - 145 [facility] mmol/L SERVICES K 3.1 (L) 3.5 - 5.0 [facility] mmol/L SERVICES CL 98 98 - 108 mmol/L [facility] SERVICES CO2 TOTAL 29 23 - 31 mmol/L [facility] AGAP 5 2 - 16 [facility] BUN 27 (H) 7 - 23 mg/dL [facility] GLUCOSE 100 70 - 110 mg/dL [facility] CREATININE 1.11 0.60 - 1.25 [facility] mg/dL SERVICES CALCIUM 7.5 (L) 8.6 - 10.6 [facility] mg/dL SERVICES eGFR Calculation 63.3 mL/min/1.73m2 [facility] (Non- SERVICES Finnish) eGFR Calculation 76.7 mL/min/1.73m2 [facility] () SERVICES Specimen Blood - ARM, LEFT Narrative Performed At Association of Glomerular Filtration Rate (GFR) and St aging [facility] SERVICES of Kidney Disease* + + +------- ------ + | GFR (mL/min/1.73 m2) | With Kidney Damage | Wi thout Kidney Damage + + +------- ------ + | >90 | Stage one | Normal + + +------- ------ + | 60-89 | Stage two | Decreased GFR + + +------- ------ + | 30-59 | Stage three | Stage three + + +------- ------ + | 15-29 | Stage four | Stage four + + +------- ------ + | <15 (or dialysis) | Stage five | Stage five + + +------- ------ + *Each stage assumes the associated GFR level has been in effect for at least three months. Stages 1 to 5, wit h or without kidney disease, indicate chronic kidney disease. Notes: Determination of stages one and two (with eGFR >59mL/min/1.73 m2) requires estimation of kidney damag e for at least three months as defined by structural or func tional abnormalities of the kidney, manifested by either: Pathological abnormalities or Markers of kidney damage (including abnormalities in the composition of the blo od or urine or abnormalities in imaging tests) . Performing Organization Address City/State/Zipcode Phone Number [facility] CLIA: [id number], [address] [place] [phone] [facility] CBC WITH DIFFERENTIAL (09/25/2019 1:16 AM CDT) [facility] WBC 7.93 4.20 - 10.70 [facility] 10*3/L SERVICES RBC 3.30 (L) 4.26 - 5.52 [facility] 10*6/L SERVICES HGB 9.9 (L) 12.2 - 16.4 [facility] g/dL SERVICES HCT 30.0 (L) 38.4 - 49.3 % [facility] SERVICES MCV 90.9 81.7 - 95.6 fL [facility] SERVICES MCH 30.0 26.1 - 32.7 pg [facility] SERVICES MCHC 33.0 31.2 - 35.0 [facility] g/dL SERVICES RDW-SD 49.4 38.5 - 51.6 fL [facility] SERVICES RDW-CV 14.6 12.1 - 15.4 % [facility] SERVICES PLT 229 150 - 328 [facility] 10*3/L SERVICES MPV 9.9 9.8 - 13.0 fL [facility] SERVICES NRBC/100 WBC 0.0 0.0 - 10.0 /100 [facility] WBCs SERVICES NRBC x10^3 <0.01 10*3/L [facility] SERVICES GRAN MAT (NEUT) % 65.0 % [facility] IMM GRAN % 0.90 % [facility] LYMPH % 19.3 % [facility] MONO % 9.6 % [facility] EOS % 4.8 % [facility] BASO % 0.4 % [facility] SERVICES GRAN MAT x10^3(ANC) 5.16 1.99 - 6.95 [facility] 10*3/uL SERVICES IMM GRAN x10^3 0.07 (H) 0.00 - 0.06 [facility] 10*3/uL SERVICES LYMPH x10^3 1.53 1.09 - 3.23 [facility] 10*3/uL SERVICES MONO x10^3 0.76 0.36 - 1.02 [facility] 10*3/uL SERVICES EOS x10^3 0.38 0.06 - 0.53 [facility] 10*3/uL SERVICES BASO x10^3 0.03 0.01 - 0.09 [facility] 10*3/uL SERVICES Specimen Blood - ARM, LEFT Performing Organization Address City/State/Zipcode Phone Number [facility] CLIA: [id number], [address] [place], [place] [address] [facility] ALDOSTERONE, SERUM (09/24/2019 12:31 PM CDT) Pathologist Sig nature ALDOST <3.0 ng/dL [facility] Comment: RIGHT ARM INTERPRETIVE INFORMATION: Aldosterone, Serum Reference intervals for age 15 and older: Upright ......... 4.0 - 31.0 ng/dL Supine .......... Less than or equal to 16.0 ng/dL Unspecified ..... Less than or equal to 31.0 ng/dL Normal serum levels of aldosterone are dependent on th e sodium intake and whether the patient is upright or supine. H igh sodium intake will tend to suppress serum aldosterone, wherea s low sodium intake will elevate serum aldosterone. The reference i ntervals for serum aldosterone are based on normal sodium intake. Access complete set of age- and/or gender-specific ref erence intervals for this test in the [facility] ([facility]). Performed by [facility], [address] [place], [place] [id number] [email or web address], Mychal Neil MD, Lab. Director Specimen Blood - ARM, RIGHT [facility] Organization Address City/State/Zipcode Phone Number [facility] [address] [place] [address] RENIN ACTIVITY (09/24/2019 12:31 PM CDT) [facility] Sig nature RENIN 0.7 ng/mL/hr [facility] Comment: INTERPRETIVE INFORMATION: Renin Activity Adult, Normal sodium diet: Supine ................. 0.2-1.6 ng/mL/hr Upright ................ 0.5-4.0 ng/mL/hr Children, Normal sodium diet, Supine: (1-7 days) ..... 2.0-35.0 ng/mL/hr Cord blood ............. 4.0-32.0 ng/mL/hr 1-12 mos ............... 2.4-37.0 ng/mL/hr 13 mos-3 yrs ........... 1.7-11.2 ng/mL/hr 4-5 yrs ................ 1.0- 6.5 ng/mL/hr 6-10 yrs ............... 0.5- 5.9 ng/mL/hr 11-15 yrs .............. 0.5- 3.3 ng/mL/hr Children, normal sodium diet, Upright: 0-3 yrs ................ Not Available 4-5 yrs ................ Less than or equal to 15 n g/mL/hr 6-10 yrs ............... Less than or equal to 17 n g/mL/hr 11-15 yrs .............. Less than or equal to 16 n g/mL/hr Plasma renin activity measures enzyme ability to conve rt angiotensinogen to angiotensin I and is limited by the availability of angiotensinogen. Plasma renin activity is not an accurate indicator of enzyme activity when angiotensin ogen is decreased. See Compliance Statement D: [email or web address] Performed by [facility], [address] [place] [address],[place] [id number] [email or web address], Mychal Neil MD, Lab. Director Specimen Blood - ARM, RIGHT Performing Organization Address City/State/Zipcode Phone Number [facility] [address] [place] [address] CATECHOLAMINES, PLASMA FRACT (09/24/2019 10:24 AM CDT) Pathologist Sig nature EPINEPH 25 10 - 200 pg/mL [facility] NOREPINEPH 361 80 - 520 pg/mL [facility] DOPAMINE <20 0 - 20 pg/mL [facility] INFO See Note [facility] Comment: INTERPRETIVE INFORMATION: Catecholamines Panel, Plasma Small increases in catecholamines (less than 2 times t he upper reference limit) usually are the result of physiologic al stimuli, drugs, or improper specimen collection. Significant el evation of one or more catecholamines (2 or more times the uppe r reference limit) is associated with an increased probability of a neuroendocrine tumor. Measurement of plasma or urine f ractionated metanephrines provides better diagnostic sensitivity than measurement of catecholamines. Higher catecholamine concentrations are observed in sp ecimens collected from upright or standing adults. Epinephri ne may be increased by approximately 20 percent; norepinephrine up to 700 pg/mL; dopamine, unchanged. Performed by [facility], [address] [facility],[place] [id number] [email or web address], Mychal Neil MD, Lab. Director Specimen Blood - HAND, LEFT Performing Organization Address City/State/Zipcode Phone Number [facility] [address] [place] [address] BASIC METABOLIC PANEL (NA, K, CL, CO2, GLUCOSE, BUN, CREATININE, CA) (09/24/2019 3:24 AM CDT) Pathologist [facility] nature NA 132 (L) 135 - 145 [facility] mmol/L SERVICES K 3.2 (L) 3.5 - 5.0 [facility] mmol/L SERVICES CL 98 98 - 108 mmol/L [facility] SERVICES CO2 TOTAL 27 23 - 31 mmol/L [facility] SERVICES AGAP 7 2 - 16 [facility] SERVICES BUN 26 (H) 7 - 23 mg/dL [facility] SERVICES GLUCOSE 97 70 - 110 mg/dL [facility] SERVICES CREATININE 1.15 0.60 - 1.25 [facility] mg/dL SERVICES CALCIUM 7.7 (L) 8.6 - 10.6 [facility] mg/dL SERVICES eGFR Calculation 60.7 mL/min/1.73m2 [facility] (Non- SERVICES Finnish) eGFR Calculation 73.6 mL/min/1.73m2 [facility] () SERVICES Specimen Blood - HAND, RIGHT Narrative Performed At Association of Glomerular Filtration Rate (GFR) and St aging [facility] SERVICES of Kidney Disease* + + +------- ------ + | GFR (mL/min/1.73 m2) | With Kidney Damage | Wi thout Kidney Damage + + +------- ------ + | >90 | Stage one | Normal + + +------- ------ + | 60-89 | Stage two | Decreased GFR + + +------- ------ + | 30-59 | Stage three | Stage three + + +------- ------ + | 15-29 | Stage four | Stage four + + +------- ------ + | <15 (or dialysis) | Stage five | Stage five + + +------- ------ + *Each stage assumes the associated GFR level has been in effect for at least three months. Stages 1 to 5, wit h or without kidney disease, indicate chronic kidney disease. Notes: Determination of stages one and two (with eGFR >59mL/min/1.73 m2) requires estimation of kidney damag e for at least three months as defined by structural or func tional abnormalities of the kidney, manifested by either: Pathological abnormalities or Markers of kidney damage (including abnormalities in the composition of the blo od or urine or abnormalities in imaging tests) . Performing Organization Address City/State/Zipcode Phone Number [facility] CLIA: [id number], [address] [place], [place] [address] [facility] CT ABDOMEN PELVIS W WO CONTRAST (09/23/2019 11:59 PM CDT) Specimen Impressions Performed At PACS/VR/DOSE 1. Large lobulated exophytic mass off the upper pole of the right kidney measures up to 12.8 cm and is concerning for renal estee l carcinoma. The mass abuts the right adrenal gland and result s in anterior displacement. The mass abuts the right hemidiaphragm and t he posterior abdominal wall with suspected focal invasion (7:31 and 605:107). No vascul ar invasion, buzz, or bone metastasis detected. 2. A heterogeneously enhancing mass at the interpola r left kidney measures 1.9 cm and is indeterminate but also concerning for re nal cell carcinoma. Hyperdensity within the bladder likely represents bloo d. Rios catheter is seen in the urinary bladder along with f ocal iatrogenic air. 3. Small right-sided pleural effusion and right lowe r lobe atelectasis. Preliminary Report Dictated by Resident: Richi Angel I, Annetta Gaming MD., have reviewe d this study and agree with the above report. Narrative Performed At EXAM: CT ABDOMEN AND PELVIS WITH AND WIT HOUT CONTRAST PACS/VR/DOSE HISTORY: Hematuria. COMPARISON: None. TECHNIQUE AND FINDINGS: Contiguous axial imaging from the level of the lung bases through the pubic symphysis was pe rformed before and after the uncomplicated administration of intravenous Omnipaque contrast. Coronal and sagittal reconstructions were obtained. FINDINGS: LOWER THORAX: Mild elevation of the right hemidiaphrag m. Right lower lobe enhancing consolidation is most consiste nt with atelectasis. Trace bilateral pleural effusions. Cardiomegal y with four-chamber enlargement. LIVER: No focal hepatic lesions. Normal liver contour. GALLBLADDER AND BILIARY TREE: No biliary ductal dilati on. No gallbladder wall thickening. SPLEEN: No splenomegaly. PANCREAS: No ductal dilation or masses. ADRENAL GLANDS: No adrenal nodules. The right adrenal gland is anteriorly displaced by the large renal mass withou t definitive invasion. KIDNEYS: A large heterogeneously enhancing lobulated m ass off the superior pole of the right kidney measures approximately 12.5 x 10.3 x 12.8 cm (AP by cc by TV). The mass results in mass effect and disp lacement of the right hepatic lobe. It also abuts the superior aspect of the right adrenal gland (5:31) and results in anterior displacem ent. The mass abuts the right hemidiaphragm. No vascular invasion dete cted. A heterogeneously enhancing round lesion at the interpolar left kidney (5:50) measures 1.8 x 1.9 cm. Multiple bilateral simple renal cysts. PERITONEUM AND RETROPERITONEUM: No free air or fluid. LYMPH NODES: No lymphadenopathy. GI TRACT: No dilation or wall thickening . PELVIS/BLADDER: The bladder contains a F oley catheter. Gas within the bladder is likely due to Rios placement. Hyperdensity within the bladder likely represents blood products.. VESSELS: Unremarkable. BONES AND SOFT TISSUES: No suspicious ly tic or sclerotic bony lesions. Procedure Note [facility], Radiant Results Inft User - 2019 8:59 AM CDT EXAM: CT ABDOMEN AND PELVIS WITH AND WITHOUT CONTRAST HISTORY: Hematuria. COMPARISON: None. TECHNIQUE AND FINDINGS: Contiguous axial imaging from the level of the lung bases through the pubic symphysis was pe rformed before and after the uncomplicated administration of intraven ous Omnipaque contrast. Coronal and sagittal reconstructions were obtained. FINDINGS: LOWER THORAX: Mild elevation of the righ t hemidiaphragm. Right lower lobe enhancing consolidation is most consiste nt with atelectasis. Trace bilateral pleural effusions. Cardiomegal y with four-chamber enlargement. LIVER: No focal hepatic lesions. Normal liver contour. GALLBLADDER AND BILIARY TREE: No biliary ductal dilation. No gallbladder wall thickening. SPLEEN: No splenomegaly. PANCREAS: No ductal dilation or masses. ADRENAL GLANDS: No adrenal nodules. The right adrenal gland is anteriorly displaced by the large renal mass withou t definitive invasion. KIDNEYS: A large heterogeneously enhanci ng lobulated mass off the superior pole of the right kidney measures approx imately 12.5 x 10.3 x 12.8 cm (AP by cc by TV). The mass results in mass e ffect and displacement of the right hepatic lobe. It also abuts the superior aspect of the right adrenal gland (5:31) and results in anterior displacem ent. The mass abuts the right hemidiaphragm. No vascular invasion dete cted. A heterogeneously enhancing round lesion at the interpolar left kidney (5:50) measures 1.8 x 1.9 cm. Multiple bilateral simple renal cysts. PERITONEUM AND RETROPERITONEUM: No free air or fluid. LYMPH NODES: No lymphadenopathy. GI TRACT: No dilation or wall thickening . PELVIS/BLADDER: The bladder contains a F oley catheter. Gas within the bladder is likely due to Rios placement . Hyperdensity within the bladder likely represents blood products.. VESSELS: Unremarkable. BONES AND SOFT TISSUES: No suspicious ly tic or sclerotic bony lesions. IMPRESSION 1. Large lobulated exophytic mass off t he upper pole of the right kidney measures up to 12.8 cm and is concerning for renal cell carcinoma. The mass abuts the right adrenal gland and result s in anterior displacement. The mass abuts the right hemidiaphragm and t he posterior abdominal wall with suspected focal invasion (7:31 and 605:1 07). No vascular invasion, buzz, or bone metastasis detected. 2. A heterogeneously enhancing mass at the interpolar left kidney measures 1.9 cm and is indeterminate but also con cerning for renal cell carcinoma. Hyperdensity within the bladder likely r epresents blood. Rios catheter is seen in the urinary bladder along with f ocal iatrogenic air. 3. Small right-sided pleural effusion a nd right lower lobe atelectasis. Preliminary Report Dictated by Resident: Richi Angel I, Annetta Gaming MD., have reviewed this study and agree with the above report. Performing Organization Address City/State/Zipcode Phone Number PACS/VR/DOSE CORONAVIRUS COVID-19 TESTING (09/23/2019 5:51 PM CDT) Pathologist Sig nature SARS-CoV-2 Not Detected Not Detected [facility] Specimen Swab - NASOPHARYNGEAL SWAB Narrative Performed At ID NOW COVID-19 Assay is an isothermal nucleic acid [facility] amplification test intended for the qualitative detect ion of nucleic acid from SARS-CoV-2 viral RNA in nasopharynge al (ADVERTISER) specimens. It is used under Emergency Use Authori zation (EUA) by FDA. The limit of detection (LOD) of the assa y is 125 Genome Equivalents/mL. A positive result is indicative of the presence of SARS-CoV-2 RNA. Clinical correlation with patient hi story and other diagnostic information is necessary to deter mine patient infection status. A negative (Not Detected) result does not preclude SARS-CoV-2 infection. Clinical correlation with patien t history and other diagnostic information should be use d in patient management decisions. Invalid: Please collect a new specimen for repeat digna ent testing if clinically indicated. Performing Organization Address City/State/Zipcode Phone Number [facility] CLIA: [id number], [address] [place] [phone] [facility] URINE CULTURE (09/23/2019 5:04 PM CDT) Pathologist Sig nature URINE CULTURE No aerobic growth [facility] (< 1000 CFU/mL) SERVICES Specimen Urine - URINE, CLEAN CATCH Performing Organization Address City/State/Zipcode Phone Number [facility] CLIA: [id number], [address] [place] [phone] [facility] COMP. METABOLIC PANEL ([id number]) (09/23/2019 5:04 PM CDT) NA 133 (L) 135 - 145 [facility] mmol/L SERVICES K 3.3 (L) 3.5 - 5.0 [facility] mmol/L SERVICES CL 97 (L) 98 - 108 mmol/L [facility] SERVICES CO2 TOTAL 31 23 - 31 mmol/L [facility] AGAP 5 2 - 16 [facility] BUN 32 (H) 7 - 23 mg/dL [facility] GLUCOSE 108 70 - 110 mg/dL [facility] SERVICES CREATININE 1.49 (H) 0.60 - 1.25 [facility] mg/dL SERVICES TOTAL BILI 0.4 0.1 - 1.1 mg/dL [facility] SERVICES CALCIUM 7.9 (L) 8.6 - 10.6 [facility] mg/dL SERVICES T PROTEIN 6.3 6.3 - 8.2 g/dL [facility] SERVICES ALBUMIN 3.2 (L) 3.5 - 5.0 g/dL [facility] ALK PHOS 56 34 - 122 U/L [facility] ALTv 44 5 - 50 U/L [facility] AST(SGOT) 102 (H) 13 - 40 U/L [facility] SERVICES eGFR Calculation 45.0 mL/min/1.73m2 [facility] (Non- SERVICES Finnish) eGFR Calculation 54.6 mL/min/1.73m2 [facility] () SERVICES Specimen Blood - ARM, RIGHT Narrative Performed At Association of Glomerular Filtration Rate (GFR) and St aging [facility] SERVICES of Kidney Disease* + + +------- ------ + | GFR (mL/min/1.73 m2) | With Kidney Damage | Wi thout Kidney Damage + + +------- ------ + | >90 | Stage one | Normal + + +------- ------ + | 60-89 | Stage two | Decreased GFR + + +------- ------ + | 30-59 | Stage three | Stage three + + +------- ------ + | 15-29 | Stage four | Stage four + + +------- ------ + | <15 (or dialysis) | Stage five | Stage five + + +------- ------ + *Each stage assumes the associated GFR level has been in effect for at least three months. Stages 1 to 5, wit h or without kidney disease, indicate chronic kidney disease. Notes: Determination of stages one and two (with eGFR >59mL/min/1.73 m2) requires estimation of kidney damag e for at least three months as defined by structural or func tional abnormalities of the kidney, manifested by either: Pathological abnormalities or Markers of kidney damage (including abnormalities in the composition of the blo od or urine or abnormalities in imaging tests) . Performing Organization Address City/State/Zipcode Phone Number [facility] CLIA: [id number], [address] [place] [phone] [facility] CBC WITH DIFFERENTIAL (09/23/2019 5:04 PM CDT) [facility] WBC 9.54 4.20 - 10.70 [facility] 10*3/L SERVICES RBC 3.41 (L) 4.26 - 5.52 [facility] 10*6/L SERVICES HGB 10.2 (L) 12.2 - 16.4 [facility] g/dL SERVICES HCT 31.3 (L) 38.4 - 49.3 % [facility] MCV 91.8 81.7 - 95.6 fL [facility] MCH 29.9 26.1 - 32.7 pg [facility] MCHC 32.6 31.2 - 35.0 [facility] g/dL SERVICES RDW-SD 49.7 38.5 - 51.6 fL [facility] SERVICES RDW-CV 14.7 12.1 - 15.4 % [facility] PLT 213 150 - 328 [facility] 10*3/L SERVICES MPV 10.1 9.8 - 13.0 fL [facility] NRBC/100 WBC 0.0 0.0 - 10.0 /100 [facility] WBCs SERVICES NRBC x10^3 <0.01 10*3/L [facility] GRAN MAT (NEUT) % 80.5 % [facility] IMM GRAN % 0.50 % [facility] LYMPH % 10.0 % [facility] MONO % 8.1 % [facility] EOS % 0.7 % [facility] BASO % 0.2 % [facility] GRAN MAT x10^3(ANC) 7.68 (H) 1.99 - 6.95 [facility] 10*3/uL SERVICES IMM GRAN x10^3 0.05 0.00 - 0.06 [facility] 10*3/uL SERVICES LYMPH x10^3 0.95 (L) 1.09 - 3.23 [facility] 10*3/uL SERVICES MONO x10^3 0.77 0.36 - 1.02 [facility] 10*3/uL SERVICES EOS x10^3 0.07 0.06 - 0.53 [facility] 10*3/uL SERVICES BASO x10^3 <0.03 0.01 - 0.09 [facility] 10*3/uL SERVICES Specimen Blood - ARM, RIGHT Performing Organization Address City/[facility]/Zipcode Phone Number [facility] CLIA: [id number], [address] [place] [address] [facility] Fibrinogen (09/23/2019 5:04 PM CDT) Pathologist Sig nature Fibrinogen 408 167 - 453 mg/dL [facility] Specimen Blood - ARM, RIGHT Performing Organization Address City/[facility]/Zipcode Phone Number [facility] CLIA: [id number], [address] [place] [address] [facility] aPTT (09/23/2019 5:04 PM CDT) Pathologist Sig nature APTT Patient 29 26 - 36 Seconds [facility] Specimen Blood - ARM, RIGHT Performing Organization Address [facility] Cent[facility]ode Phone Number [facility] CLIA: [id number], [address] [place] [phone] [facility] Prothrombin Time / INR (09/23/2019 5:04 PM CDT) PROTIME PATIENT 12.3 10.1 - 12.6 [facility] Seconds SERVICES INR 1.1Comment: Normal [facility] INR <1.1; Warfarin SERVICES Therapeutic range 2.0 to 3.0 or 2.5 to 3.5, depending upon the indications. Specimen Blood - ARM, RIGHT Performing Organization Address City/[facility]/Zipcode Phone Number [facility] CLIA: [id number], [address] [place] [address] [facility] Phosphorus - Serum (09/23/2019 5:04 PM CDT) Pathologist Sig nature PHOSPHORUS 2.6 2.5 - 5.0 mg/dL [facility] Specimen Blood - ARM, RIGHT Performing Organization Address [facility] Centercome Phone Number [facility] CLIA: [id number], [address] [place] [phone] [facility] Magnesium - Serum (09/23/2019 5:04 PM CDT) Pathologist Sig nature MAGNESIUM 2.2 1.7 - 2.4 mg/dL [facility] Specimen Blood - ARM, RIGHT Performing Organization Address [facility] [facility] [place] [facility] CLIA: [id number], [address] [place] [address] [phone] [facility] documented in this encounter Visit Diagnoses Diagnosis Hematuria, unspecified type - Primary Pain of lower extremity, unspecified lat erality Right renal mass Unspecified disorder of kidney and urete r Gross hematuria History of DVT (deep vein thrombosis) Personal history of venous thrombosis an d embolism documented in this encounter Administered Medications Medication Order MAR Action Action Date Dose Rate Site acetaminophen (TYLENOL) tablet 650 mg 650 mg, Oral, Q6HPRN, Starting Mon at 1723, Until Discontinued, Routine, Pain (scale 1-3) D5W 0.45% NaCl (1/2NS) IV New Bag 09/25/2019 5:42 PM CDT 1,000 mL 42 mL/hr infusion 1,000 mL at 42 mL/hr, 1,000 mL, IV Infusion, CONTINUOUS, Starting 09/25/19 at 1645, Until Discontinued, Routine sennosides (SENOKOT) tablet 8.6 mg Given 09/28/2019 7:58 AM CDT 8.6 mg 8.6 mg, Oral, DAILY, First dose on Mon09/24/19 at 0900, Until Discontinued, Routine Given 09/27/2019 8:43 AM CDT 8.6 mg Given 09/24/2019 7:54 AM CDT 8.6 mg Medication Order MAR Action Action Date Dose Rate Site D5W 0.45% NaCl (1/2NS) IV New Bag 09/25/2019 1:02 AM CDT 1,000 mL 115 mL/hr infusion 1,000 mL at 115 mL/hr, 1,000 mL, IV Infusion, CONTINUOUS, Starting Mon09/25/19 at 0000, Until Mon09/25/19 at 1642, Routine FENTanyl PF (SUBLIMAZE (PF)) injection Given 09/25/2019 10:29 AM CDT 25 mcg Slow IV Push, PRN, Starting Mon09/25/19 at 1029, Until Mon09/25/19 at 1029, Routine iohexol (OMNIPAQUE 350 BULK-150 mL) Given 09/23/2019 11:44 PM CD T 120 mL injection 120 mL 120 mL, Intravenous, ONCE, 1 dose, Mon09/24/19 at 0000, Routine lidocaine variable + sod bicarb Given by Provider 09/25/2019 11:00 AM 20 mL injection CDT Intradermal, ONCE, 1 dose, Mon09/25/19 at 1100, 20 mL midazolam (VERSED) injection Given 09/25/2019 10:28 AM CDT 0.5 mg IV Push, PRN, Starting Mon09/25/19 at 1028, Until Mon09/25/19 at 1028, Routine documented in this encounter Insurance Payer Benefit Plan / Subscriber ID Effective Dates Phone Addre ss Type Group MEDICARE MEDICARE PART xxxxxxxxxxx 2001-Leeanne [phone] [address] Medicare A & B [place] 2 [id number] JOSE G MCCORMICK [id number] documented as of this encounter
--- OUTSIDE RECORDS SUMMARY | 2019-10-05 16:30 | XMS REPORT | Summary of Care ---
:1935 Author Organization [facility] Address [address] [place] [id number] Care Team Providers Name Role Phone Cory Sadie Primary Care Provider Reason for Visit Reason Comments Transition Of Care Encounter Details Date Type Department Care Team Description 10/01/2019 Transition of Care [facility] Naty Mejia Transition Of Care [facility] ADRIÁN [phone] Allergies Active Allergy Reactions Severity Noted Date [...] [address] Medicare A & B nt [id number] [place] [id number] documented as of this encounter
[2019-10-05] MEDS ORDERED: NA CHLORIDE 0.9% 1,000 ML ONE (17:09)
[2019-10-05] MEDS ORDERED: ASPIRIN 81 MG CHEWABLE TABLET ONE (17:09)
[2019-10-05 17:19] LABS: Absolute Lymphocytes (CBC) 1.3 K/uL (0.7-4.9); Hematocrit 32.6 % (39.6-49.0); Lymphocytes % 15.4 % (15.3-44.8); MPV 7.9 fL (7.6-11.3); RBC Red Blood Cell Count 3.61 M/uL (4.33-5.43)
[2019-10-05 17:20] LABS: Protime INR 1.1
[2019-10-05 17:38] LABS: ALT/SGPT 19 U/L (12-78); AST/SGOT 17 U/L (15-37); Albumin 2.3 g/dL (3.4-5.0); Alkaline Phosphatase 62 U/L (45-117); BUN Blood Urea Nitrogen 26 mg/dL (7-18); Bicarbonate 29 mmol/L (21-32); Bilirubin Direct 0.1 mg/dL (0-0.2); Bilirubin Total 0.3 mg/dL (0.2-1.0); Glucose Level 98 mg/dL (74-106); NT PRO-BNP 2546 pg/mL (<450); Potassium 3.5 mmol/L (3.5-5.1); Protein, Total 6.3 g/dL (6.4-8.2); Sodium Level 138 mmol/L (136-145); Troponin (Emerg Dept Use Only) < 0.02 ng/mL (0.0-0.045)
--- NOTE | 2019-10-05 18:11 | ER ---
Nurse's Notes [facility] Name: Osmin Hobbs Age: 84 yrs Sex: Male : 1935 Arrival Date: 10/05/2019 Time: 16:29 Bed 30 Private MD: Diagnosis: Chronic atrial fibrillation;Pleural effusion, not elsewhere classified-s/p recent pneumonia Presentation: 10/04 16:32 Chief complaint: EMS states: Sent from [facility] after having ss inconclusive TB skin test and chest XRAY. PT denies cough, SOB and/or fever. Coronavirus screen: Proceed with normal triage. Patient denies a cough. Patient denies shortness of breath or difficulty breathing. Patient denies measured and/or subjective temperature greater than 100.4F prior to today's visit. Patient denies travel on a cruise ship or to a country the [facility] currently lists as an affected area. Patient denies contact with known and/or suspected case of COVID-19. Ebola Screen: Patient denies exposure to infectious person. Patient denies travel to an Ebola-affected area in the 21 days before illness onset. Initial Sepsis Screen: Does the patient meet any 2 criteria? HR > 90 bpm. Does the patient have a suspected source of infection? No. Patient's initial sepsis screen is negative. Risk Assessment: Do you want to hurt yourself or someone else? Patient reports no desire to harm self or others. Onset of symptoms is unknown. 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 Screenin:00 Abuse screen: Denies threats or abuse. Nutritional screening: No deficits noted. em Tuberculosis screening: No symptoms or risk factors identified. Fall Risk None identified. Assessment: 17:00 General: Appears in no apparent distress. comfortable, Behavior is calm, cooperative, em appropriate for age, Denies fever. Pain: Denies pain. Neuro: Level of Consciousness is awake, alert, obeys commands, Oriented to person, place, time, situation, Appropriate for age. Cardiovascular: Capillary refill < 3 seconds Patient's skin is warm and dry. Respiratory: Airway is patent Respiratory effort is even, unlabored, Respiratory pattern is regular, symmetrical, Breath sounds are diminished in left posterior lower lobe and right posterior lower lobe Denies cough. GI: Abdomen is flat. Derm: Skin is intact, is fragile, is thin, Skin is pink, warm \T\ dry. Musculoskeletal: Capillary refill < 3 seconds. 18:14 Reassessment: RADHA Mccauley spoke with , she reports hx of AFIB, pt will be discharged em home per family request. Vital Signs: 16:32 BP 144 / 96; Pulse 107; Resp 18; Temp 98.4(TE); Pulse Ox 98% on R/A; ss 17:58 BP 143 / 105; Pulse 94; Resp 18; Temp 98.8(O); Pulse Ox 96% on R/A; Pain 0/10; em 18:45 BP 145 / 89; Pulse 59; Resp 18; Pulse Ox 99% on R/A; em ED Course: 16:29 Patient arrived in ED. am2 16:34 Triage completed. ss 16:37 Arm band placed on right wrist. ss 16:56 Brooks Foster, RN is Primary Nurse. em 17:00 Patient has correct armband on for positive identification. Placed in gown. Bed in low em position. Call light in reach. groundwater monitoring technician on. Pulse ox on. NIBP on. 17:10 Inserted saline lock: 20 gauge in left hand, using aseptic technique. Blood collected. em inserted by RADHA Mccauley. 17:24 Parisa Arguello FNP-C is [facility]. snw 17:24 Aiden Dela Cruz MD is Attending Physician. snw 18:33 No provider procedures requiring assistance completed. IV discontinued, intact, em bleeding controlled, No redness/swelling at site. Pressure dressing applied. Administered Medications: 17:18 Drug: Aspirin Chewable Tablet 324 mg Route: PO; em 18:45 Follow up: Response: No adverse reaction em 17:24 Drug: NS 0.9% 1000 ml Route: IV; Rate: 75 ml/hr; Site: left hand; em 18:45 Follow up: IV Status: Order to discontinue infusion em Outcome: 18:10 Discharge ordered by . snw 18:33 Discharged to home via ambulance. em 18:33 Condition: good 18:33 Discharge instructions given to patient, family, EMS, Instructed on discharge instructions, follow up and referral plans. Demonstrated understanding of instructions, follow-up care. 18:46 Patient left the ED. em Addendum: 10/09/2019 11:17 Addendum: Other notified of negative COVID-19 swab results. d m5 Signatures: Luna Ramos, RN RN dm5 Parisa Arguello, PARALEGAL INSTRUCTOR-C PARALEGAL INSTRUCTOR-Csnw Brooks Foster, RN Dayan Perez RN Marcelle Tirado
--- NOTE | 2019-10-05 18:11 | EDPHYS ---
Physician Documentation [facility] Name: Osmin Hobbs Age: 84 yrs Sex: Male : 1935 Arrival Date: 10/05/2019 Time: 16:29 Bed 30 Private MD: ED Physician Aiden Dela Cruz HPI: 10/04 17:32 This 84 yrs old Male presents to ER via EMS with complaints of Abnormal Lab snw Results. 17:32 Onset: The symptoms/episode began/occurred gradually. Associated signs and symptoms: snw Pertinent positives: cough. It is unknown whether or not the patient has had similar symptoms in the past. The patient has been recently seen by a physician: with similar presenting complaints, pt was sent [facility]. 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 ROS: 17:32 Constitutional: Negative for fever, chills, and weight loss, Eyes: Negative for injury, snw pain, redness, and discharge, ENT: Negative for injury, pain, and discharge, Neck: Negative for injury, pain, and swelling, Cardiovascular: Negative for chest pain, palpitations, and edema, Abdomen/GI: Negative for abdominal pain, nausea, vomiting, diarrhea, and constipation, Back: Negative for injury and pain, : Negative for injury, bleeding, discharge, and swelling, MS/Extremity: Negative for injury and deformity, Skin: Negative for injury, rash, and discoloration, Neuro: Negative for headache, weakness, numbness, tingling, and seizure, Psych: Negative for depression, anxiety, suicide ideation, homicidal ideation, and hallucinations. 17:32 Respiratory: Positive for cough, with no reported sputum. Exam: 17:29 Head/Face: Normocephalic, atraumatic. Eyes: Pupils equal round and reactive to light, snw extra-ocular motions intact. Lids and lashes normal. Conjunctiva and sclera are non-icteric and not injected. Cornea within normal limits. Periorbital areas with no swelling, redness, or edema. 17:29 Neck: Trachea midline, no thyromegaly or masses palpated, and no cervical lymphadenopathy. Supple, full range of motion without nuchal rigidity, or vertebral point tenderness. No Meningismus. Chest/axilla: Normal chest wall appearance and motion. Nontender with no deformity. No lesions are appreciated. 17:29 Abdomen/GI: Soft, non-tender, with normal bowel sounds. No distension or tympany. No guarding or rebound. No evidence of tenderness throughout. Back: No spinal tenderness. No costovertebral tenderness. Full range of motion. MS/ Extremity: Pulses equal, no cyanosis. Neurovascular intact. Full, normal range of motion. Neuro: Awake and alert, GCS 15, oriented to person, place, time, and situation. Cranial nerves II-XII grossly intact. Motor strength 5/5 in all extremities. Sensory grossly intact. Cerebellar exam normal. Normal gait. Psych: Awake, alert, with orientation to person, place and time. Behavior, mood, and affect are within normal limits. 17:29 Constitutional: The patient appears awake, listless. 17:29 ENT: Mouth: Oral mucosa: dry, Voice: is normal. 17:29 Cardiovascular: Rate: normal, Rhythm: irregularly irregular, Heart sounds: normal. 17:29 ECG was reviewed by the Attending Physician. 17:29 Respiratory: the patient does not display signs of respiratory distress, Respirations: shallow respirations, Breath sounds: diminished bases, denies cough but coughing a lot in exam room. 17:29 Skin: Turgor: is poor. Vital Signs: 16:32 BP 144 / 96; Pulse 107; Resp 18; Temp 98.4(TE); Pulse Ox 98% on R/A; ss 17:58 BP 143 / 105; Pulse 94; Resp 18; Temp 98.8(O); Pulse Ox 96% on R/A; Pain 0/10; em 18:45 BP 145 / 89; Pulse 59; Resp 18; Pulse Ox 99% on R/A; em MDM: 17:25 Patient medically screened. catalina 18:12 Data reviewed: vital signs, nurses notes. Data interpreted: Pulse oximetry: on room air snw is 96 %. Interpretation: acceptable. Counseling: I had a detailed discussion with the patient and/or guardian regarding: the historical points, exam findings, and any diagnostic results supporting the discharge/admit diagnosis, the presence of at least one elevated blood pressure reading (>120/80) during this emergency department visit, lab results, radiology results, the need for outpatient follow up, for definitive care. ED course: Pt and Spouse want pt home. Spouse states pt is not to go back to [place]. Mrs. Hobbs states their Son will be there tomorrow to assist in taking care of him. . 10/04 16:50 Order name: COVID-19 eb 10/04 17:00 Order name: Basic Metabolic Panel; Complete Time: 17:48 em 10/04 17:00 Order name: CBC with Diff; Complete Time: 17:24 em 10/04 17:00 Order name: LFT's; Complete Time: 17:48 em 10/04 17:00 Order name: Magnesium; Complete Time: 17:48 em 10/04 17:00 Order name: NT PRO-BNP; Complete Time: 17:48 em 10/04 17:00 Order name: PT-INR; Complete Time: 17:24 em 10/04 17:00 Order name: Troponin (emerg Dept Use Only); Complete Time: 17:48 em 10/04 17:00 Order name: EKG; Complete Time: 17:01 em 10/04 17:00 Order name: Cardiac monitoring; Complete Time: 17:01 em 10/04 17:00 Order name: EKG - Nurse/Tech; Complete Time: 17:24 em 10/04 17:00 Order name: IV Saline Lock; Complete Time: 17:24 em 10/04 17:00 Order name: Labs collected and sent; Complete Time: 17:01 em 10/04 17:00 Order name: O2 Per Protocol; Complete Time: 17:01 em 10/04 17:00 Order name: O2 Sat Monitoring; Complete Time: 17:01 em Administered Medications: 17:18 Drug: Aspirin Chewable Tablet 324 mg Route: PO; em 18:45 Follow up: Response: No adverse reaction em 17:24 Drug: NS 0.9% 1000 ml Route: IV; Rate: 75 ml/hr; Site: left hand; em 18:45 Follow up: IV Status: Order to discontinue infusion em Disposition: 10/05/19 18:10 Discharged to Home. Impression: Chronic atrial fibrillation, Pleural effusion, not elsewhere classified - s/p recent pneumonia. - Condition is Stable. - Discharge Instructions: Atrial Fibrillation, Heart Failure, [id number]. - Medication Reconciliation Form, Thank You Letter, Antibiotic Education, Prescription Opioid Use form. - Follow up: Private Physician; When: 2 - 3 days; Reason: Recheck today's complaints, Continuance of care, Re-evaluation by your physician. Follow up: Emergency Department; When: As needed; Reason: Worsening of condition. Addendum: 10/07/2019 20:16 Co-signature as Attending Physician, Aiden Dela Cruz MD I agree with the assessment and c castillo plan of care. Signatures: Dispatcher [employer] [facility] Aiden Dela Cruz MD MD cha Therrien, Shelly, OBIEE REPORT DEVELOPER-C OBIEE REPORT DEVELOPER-Csnw Brooks Foster, RN RN Dayan Callejas RN RN ss Corrections: (The following items were deleted from the chart) 10/04 17:30 17:01 Chest Single View+RAD.RAD.BRZ ordered. [facility] 18:46 18:10 10/05/2019 18:10 Discharged to Home. Impression: Chronic atrial fibrillation; em Pleural effusion, not elsewhere classified - s/p recent pneumonia. Condition is Stable. Forms are Medication Reconciliation Form, Thank You Letter, Antibiotic Education, Prescription Opioid Use. Follow up: Private Physician; When: 2 - 3 days; Reason: Recheck today's complaints, Continuance of care, Re-evaluation by your physician. Follow up: Emergency Department; When: As needed; Reason: Worsening of condition. snw
[2019-10-05 19:04] VITALS: TEMP 98.8
[2019-10-05 19:05] VITALS: BP 145/89; O2SAT 99
--- NOTE | 2019-10-06 08:40 | EKG ---
Test Date: 2019-10-05 Test Time: 16:56:57 Pressure Test Operator: LAINEY MEASUREMENT RESULTS: Intervals: Rate: 83 MN: QRSD: 84 QT: 372 QTc: 437 [place]: P: MN: QRS: 187 T: 37 INTERPRETIVE STATEMENTS: Atrial fibrillation Right superior axis deviation Abnormal ECG Compared to ECG 09/20/2019 15:00:15 Right superior axis now present Left-axis deviation no longer present Electronically Signed On 10-06-19 08:39:00 CDT by Andrea More
== END 2019-10-05 18:46 | disposition home or self-care (01) ==
LOC: ER 16:27
DX: J90 Pleural effusion, not elsewhere classified (principal); I48.20 Chronic atrial fibrillation, unspecified; Z20.828 Contact with and (suspected) exposure to other viral communicable diseases; Z86.73 Personal history of transient ischemic attack (TIA), and cerebral infarction without residual deficits; Z88.2 Allergy status to sulfonamides; Z85.528 Personal history of other malignant neoplasm of kidney
CPT/HCPCS: 36415; 80048; 80076; 83735; 83880; 84484; 85025; 85610; 93005; 96360; 99284; J7030

== ENCOUNTER 2019-11-09 21:18 | Emergency (ER) | payer OTHER ==
[2019-11-09 22:57] LABS: Absolute Lymphocytes (CBC) 1.6 K/uL (0.7-4.9); Basophils % 0.7 % (0-1.3); Hematocrit 28.6 % (39.6-49.0); Lymphocytes % 20.2 % (15.3-44.8); MPV 7.5 fL (7.6-11.3)
[2019-11-09 23:02] LABS: Protime INR 1.07
[2019-11-09 23:37] LABS: Potassium 2.9 mmol/L (3.5-5.1)
[2019-11-09] MEDS ORDERED: KCL 20 MEQ/100 mL IVPB 20 MEQ/100 ML BAG IV ONE (23:55)
[2019-11-09] MEDS ORDERED: NA CHLORIDE 0.9% 500 ML ONE (23:55)
[2019-11-10] MEDS ORDERED: POTASSIUM 25 MEQ EFFERV TAB ONE ×3 (00:32→01:34)
--- NOTE | 2019-11-10 01:26 | EDPHYS ---
Physician Documentation [facility] Name: Osmin Hobbs Age: 84 yrs Sex: Male : 1935 Arrival Date: 11/09/2019 Time: 21:26 Bed 6 Private MD: ED Physician Chris Soriano HPI: 11/08 21:55 This 84 yrs old Male presents to ER via EMS with complaints of right arm cp bruise. 21:55 The patient or guardian complains of bruising. cp 21:55 The complaints affect the medial aspect right upper arm and right forearm. Context: cp resulted from unknown cause. Onset: The symptoms/episode began/occurred today. Associated signs and symptoms: Pertinent positives: swelling, Pertinent negatives: decreased range of motion, erythema, fever, pain. reports patient takes daily aspirin and no blood thinner medications. Historical: - Allergies: 21:35 Sulfa (Sulfonamide Antibiotics); rr5 - Home Meds: 21:35 aspirin 81 mg Oral chew 1 tab once daily [Active]; multivitamin Oral daily [Active]; rr5 b12 [Active]; Prilosec Oral [Active]; vitamin B complex Oral [Active]; - PMHx: 21:35 cardiomegaly; CVA; Neoplasm of R kidney; rr5 - Immunization history:: Adult Immunizations unknown. - Social history:: Smoking status: unknown. ROS: 22:00 MS/extremity: Positive for ecchymosis, of the medial aspect right upper arm and right cp forearm, Negative for injury or acute deformity, decreased range of motion, pain, paresthesias. 22:00 Constitutional: Negative for fever. cp 22:00 Cardiovascular: Negative for chest pain. 22:00 Respiratory: Negative for shortness of breath, wheezing. 22:00 Skin: Negative for cellulitis, rash. 22:00 Neuro: Negative for altered mental status, dizziness, headache, weakness. 22:00 All other systems are negative. Exam: 22:10 Constitutional: The patient appears in no acute distress, alert, awake, comfortable, cp non-diaphoretic, non-toxic, well developed, well nourished. 22:10 Head/Face: Normocephalic, atraumatic. cp 22:10 Eyes: Periorbital structures: appear normal, Conjunctiva: normal, no exudate, no injection, Sclera: no appreciated abnormality, Lids and lashes: appear normal, bilaterally. 22:10 ENT: External ear(s): are unremarkable, Nose: is normal, Mouth: is normal, Posterior pharynx: Airway: no evidence of obstruction, patent. 22:10 Neck: ROM/movement: is normal, is supple, without pain, no range of motions limitations. 22:10 Chest/axilla: Inspection: normal, Palpation: is normal, no crepitus, no tenderness. 22:10 Cardiovascular: Rate: normal, Rhythm: irregularly irregular, Pulses: Pulses are 2+ in right radial artery and left radial artery. Edema: is not appreciated, JVD: is not appreciated. 22:10 Respiratory: the patient does not display signs of respiratory distress, Respirations: normal, no use of accessory muscles, no retractions, labored breathing, is not present, Breath sounds: are clear throughout, no decreased breath sounds. 22:10 Abdomen/GI: Exam negative for discomfort, distension, guarding, Inspection: abdomen appears normal. 22:10 Back: pain, is absent, ROM is normal. 22:10 Musculoskeletal/extremity: Extremities: grossly normal except: noted in the medial aspect right upper arm and forearm: ecchymosis, swelling, There is no evidence of decreased ROM, deformity, Perfusion: the extremity is normally perfused throughout, Sensation intact. 22:10 Skin: cellulitis, is not appreciated, intact of right arm. 11/09 00:10 ECG was reviewed by the Attending Physician. cp Vital Signs: 11/08 21:28 BP 144 / 100 LA Supine (auto/pedi); Pulse 90 MON; Resp 16 S; Temp 98.2(O); Pulse Ox 96% ds4 on R/A; 22:35 BP 143 / 99; Pulse 87; Resp 17; Pulse Ox 99% on R/A; Pain 0/10; rr5 11/09 00:00 BP 141 / 70; Pulse 80; Resp 17; Pulse Ox 98% on R/A; rr5 01:00 BP 154 / 93; Pulse 85; Resp 19; Pulse Ox 98% ; rr5 01:46 BP 139 / 75; Pulse 79; Resp 17; Temp 98; Pulse Ox 100% ; rr5 MDM: 11/08 21:28 Patient medically screened. tw4 23:00 Differential diagnosis: closed fracture, contusion, spontaneous bleed, DVT. cp 11/09 01:17 Refusal of service: The patient/guardian displays adequate decision making capability cp and despite a detailed discussion of alternatives, benefits, risks, and consequences refuses: IV potassium. 01:25 Data reviewed: vital signs, nurses notes, lab test result(s), EKG, radiologic studies, cp plain films, I have discussed the patient's presentation/case with the attending Emergency Department Physician; and as a result, I will discharge patient. 01:25 Test interpretation: by ED physician or midlevel provider: xrays of right humerus cp negative for fracture and xrays of right forearm negative for fracture. Counseling: I had a detailed discussion with the patient and/or guardian regarding: the historical points, exam findings, and any diagnostic results supporting the discharge/admit diagnosis, lab results, radiology results, the need for outpatient follow up, an radiology tech, to return to the emergency department if symptoms worsen or persist or if there are any questions or concerns that arise at home. 11/08 22:40 Order name: CBC with Diff; Complete Time: 23:35 cp 11/08 23:35 Interpretation: Normal except: RBC 3.30; HGB 9.8; HCT 28.6; MCV 86.7; MPV 7.5. cp 11/08 22:40 Order name: PT-INR; Complete Time: 23:35 cp 11/08 21:57 Order name: XRAY Humerus RIGHT cp 11/08 21:57 Order name: XRAY Forearm RIGHT cp 11/08 22:40 Order name: Ptt, Activated; Complete Time: 23:35 cp 11/08 22:40 Order name: BMP; Complete Time: 23:38 cp 11/08 23:38 Interpretation: Normal except: NA 132; K 2.9; CL 95; GFR 71. cp 11/08 23:38 Order name: EKG; Complete Time: 23:39 cp 11/08 23:38 Order name: EKG - Nurse/Tech; Complete Time: 00:07 cp EC:10 Rate is 88 beats/min. Rhythm is irregularly irregular, A fib. QRS interval is normal. cp QT interval is normal. Interpreted by me. Reviewed by me. Administered Medications: 00:07 Drug: Potassium Chloride 20 mEq Route: IV; Rate: calculated rate; Site: left forearm; rr5 01:15 Follow up: Response: No adverse reaction; IV Status: Order to discontinue infusion; IV rr5 Intake: 25ml ; discontinuedby the patient 00:29 Drug: Potassium Effervescent Tablet 50 mEq Route: PO; rr5 00:59 Follow up: Response: No adverse reaction ea 01:30 CANCELLED (Patient Refused): Potassium Effervescent Tablet 50 mEq PO once; dissolve in ea 4 ounces of water or juice Disposition: 02:00 Chart complete. cp 06:24 Co-signature as Attending Physician, Chris Soriano MD I agree with the assessment and 4 plan of care. Disposition: 11/10/19 01:25 Discharged to Home. Impression: Hypokalemia, Chronic atrial fibrillation. - Condition is Stable. - Discharge Instructions: Atrial Fibrillation, Potassium Content of Foods, Aspirin and Your Heart, Hypokalemia. - Medication Reconciliation Form, Thank You Letter, Antibiotic Education, Prescription Opioid Use, SBAR form form. - Follow up: Private Physician; When: 1 - 2 days; Reason: Recheck today's complaints. - Problem is new. - Symptoms have improved. Signatures: Dispatcher [employer] EDMS Aiden Arora PA PA cp Wadley, Terrence, MD MD tw4 Sunny Ramirez RN RN rr5 Chloe Davila RN, ea Corrections: (The following items were deleted from the chart) 01:30 01:17 Potassium Effervescent Tablet 50 mEq PO once; dissolve in 4 ounces of water or ea juice ordered. cp 01:57 01:25 11/10/2019 01:25 Discharged to Home. Impression: Hypokalemia; Chronic atrial rr5 fibrillation. Condition is Stable. Forms are Medication Reconciliation Form, Thank You Letter, Antibiotic Education, Prescription Opioid Use. Follow up: Private Physician; When: 1 - 2 days; Reason: Recheck today's complaints. Problem is new. Symptoms have improved. cp
--- NOTE | 2019-11-10 01:26 | ER ---
Nurse's Notes [facility] Name: Osmin Hobbs Age: 84 yrs Sex: Male : 1935 Arrival Date: 11/09/2019 Time: 21:26 Bed 6 Private MD: Diagnosis: Hypokalemia;Chronic atrial fibrillation Presentation: 11/08 21:40 Chief complaint: EMS states: reports pt had a bruise on his right arm, reports she ea noticed the bruise get larger today. Coronavirus screen: Proceed with normal triage. Ebola Screen: No symptoms or risks identified at this time. Initial Sepsis Screen: Does the patient meet any 2 criteria? No. Patient's initial sepsis screen is negative. Does the patient have a suspected source of infection? No. Patient's initial sepsis screen is negative. Risk Assessment: Do you want to hurt yourself or someone else? Patient reports no desire to harm self or others. Onset of symptoms was November 09, 2019. 21:40 Method Of Arrival: EMS: [facility] ea 21:40 Acuity: CESARIO 3 ea Historical: - Allergies: 21:35 Sulfa (Sulfonamide Antibiotics); rr5 - Home Meds: 21:35 aspirin 81 mg Oral chew 1 tab once daily [Active]; multivitamin Oral daily [Active]; rr5 b12 [Active]; Prilosec Oral [Active]; vitamin B complex Oral [Active]; - PMHx: 21:35 cardiomegaly; CVA; Neoplasm of R kidney; rr5 - Immunization history:: Adult Immunizations unknown. - Social history:: Smoking status: unknown. Screenin:32 Abuse screen: Denies threats or abuse. Denies injuries from another. Nutritional rr5 screening: No deficits noted. Tuberculosis screening: No symptoms or risk factors identified. Fall Risk Fall in past 12 months (25 points). Gait- Impaired (20 pts.). Total Carlson Fall Scale indicates High Risk Score (45 or more points). Fall prevention measures have been instituted. Side Rails Up X 2 Placed Close to Nursing Station Frequent Obs/Assessments Occuring As available patient and family educated on Fall Prevention Program and Strategies. Assessment: 21:45 General: Appears in no apparent distress. comfortable, Behavior is calm, cooperative, rr5 appropriate for age. Pain: Denies pain. Neuro: Level of Consciousness is awake, alert, obeys commands, Oriented to person, place. Cardiovascular: Capillary refill < 3 seconds Patient's skin is warm and dry. Respiratory: Airway is patent Respiratory effort is even, unlabored, Respiratory pattern is regular, symmetrical. GI: No signs and/or symptoms were reported involving the gastrointestinal system. : No signs and/or symptoms were reported regarding the genitourinary system. EENT: No signs and/or symptoms were reported regarding the EENT system. Derm: Skin is intact, is fragile, is thin, Skin temperature is warm Bruising that is dark purple, on right arm. Musculoskeletal: Capillary refill < 3 seconds. 22:30 Reassessment: Patient appears in no apparent distress at this time. No changes from rr5 previously documented assessment. 23:27 Reassessment: Patient and/or family updated on plan of care and expected duration. Pain ea level reassessed. Pt resting with eyes closed, respirations even and unlabored, chest expansions even and symmetrical. No s/s of pain or discomfort noted at this time. 11/09 00:25 Reassessment: family member [phone] informed and updated for the status of the rr5 patient with verbal consent by the patient. 00:37 Reassessment: Patient and/or family updated on plan of care and expected duration. Pain ea level reassessed. Patient is alert, oriented x 3, equal unlabored respirations, skin warm/dry/pink. 01:00 Reassessment: Patient appears in no apparent distress at this time. Patient is alert, rr5 oriented x 3, equal unlabored respirations, skin warm/dry/pink. ongoing potassium drip no complaints made. 01:15 Reassessment: patient pulled the IV line, he does not want to continue the K drip. I rr5 want to go home as stated by the patient. ED provider informed and spoke to patient, insist he does not want to continuie. 01:30 Reassessment: Patient and/or family updated on plan of care and expected duration. Pain ea level reassessed. Patient is alert, oriented x 3, equal unlabored respirations, skin warm/dry/pink. Pt discontinued own IV, states "I don't want that potassium anymore" pressure dressing applied, bleeding controlled, IV catheter intact. 01:50 Reassessment: Patient appears in no apparent distress at this time. Patient is alert, rr5 oriented x 3, equal unlabored respirations, skin warm/dry/pink. report given to [facility] awake alert vitally stable. no complaints made. Vital Signs: 11/08 21:28 BP 144 / 100 LA Supine (auto/pedi); Pulse 90 MON; Resp 16 S; Temp 98.2(O); Pulse Ox 96% ds4 on R/A; 22:35 BP 143 / 99; Pulse 87; Resp 17; Pulse Ox 99% on R/A; Pain 0/10; rr5 11/09 00:00 BP 141 / 70; Pulse 80; Resp 17; Pulse Ox 98% on R/A; rr5 01:00 BP 154 / 93; Pulse 85; Resp 19; Pulse Ox 98% ; rr5 01:46 BP 139 / 75; Pulse 79; Resp 17; Temp 98; Pulse Ox 100% ; rr5 ED Course: 11/08 21:26 Patient arrived in ED. lp1 21:28 Chris Soriano MD is Attending Physician. tw4 21:32 Sunny Ramirez, ADRIÁN is Primary Nurse. rr5 21:32 Patient has correct armband on for positive identification. Placed in gown. Bed in low rr5 position. Call light in reach. Side rails up X2. Pulse ox on. NIBP on. 21:36 Aiden Arora PA is PHCP. cp 21:39 Arm band placed on right wrist. Patient placed in an exam room, on a stretcher, on ea pulse oximetry. 21:41 Triage completed. ea 22:37 XRAY Humerus RIGHT In Process Unspecified. EDMS 22:37 XRAY Forearm RIGHT In Process Unspecified. EDMS 22:45 Inserted saline lock: 20 gauge in left forearm, using aseptic technique. Blood rr5 collected. 11/09 00:10 EKG done, by ED staff, reviewed by Aiden ARAIZA. rr5 01:15 No provider procedures requiring assistance completed. IV discontinued, intact, rr5 bleeding controlled, No redness/swelling at site. Pressure dressing applied, removed by the patient. Administered Medications: 00:07 Drug: Potassium Chloride 20 mEq Route: IV; Rate: calculated rate; Site: left forearm; rr5 01:15 Follow up: Response: No adverse reaction; IV Status: Order to discontinue infusion; IV rr5 Intake: 25ml ; discontinuedby the patient 00:29 Drug: Potassium Effervescent Tablet 50 mEq Route: PO; rr5 00:59 Follow up: Response: No adverse reaction ea 01:30 CANCELLED (Patient Refused): Potassium Effervescent Tablet 50 mEq PO once; dissolve in ea 4 ounces of water or juice Intake: 01:15 IV: 25ml; Total: 25ml. rr5 Outcome: 01:25 Discharge ordered by . cp 01:47 Discharged to home via ambulance. rr5 01:47 Condition: stable 01:47 Discharge instructions given to patient, Instructed on discharge instructions, follow up and referral plans. Demonstrated understanding of instructions, follow-up care. 01:57 Patient left the ED. rr5 Signatures: Dispatcher [employer] EDMS Alie Hilton, RN RN lp1 Sha Mcgarry ds4 Aiden Arora PA PA cp Antunez, Elena, RN RN ea Wadley, Terrence, MD MD tw4 Sunny Ramirez RN RN rr5
[2019-11-10 02:05] VITALS: BP 144/100; TEMP 98.2; O2SAT 96
--- NOTE | 2019-11-10 08:52 | RAD REPORT ---
EXAM DESCRIPTION: RAD - Forearm Right - 11/09/2019 10:38 pm CLINICAL HISTORY: ecchymosisarm bruising, pain COMPARISON: No comparisonsNone. FINDINGS: No fracture is identified. There is no dislocation or periosteal reaction noted. Two small round calcific densities are present in the midforearm anterior soft tissues. There is an a ssociated oval soft tissue mass approximately 15 mm in size. This is nonspecific. This could be part of an old traumatic injury. A small fibroma or other benign mass would be possible. None are consider ed to be long-term significant findings. Soft tissues anterior to the proximal forearm are mildly pro minent. Soft tissue detail is limited. Hematoma is possible if there is trauma history or anticoagula tion history. No history penetrating wound to suspect foreign body. IMPRESSION: No acute bone or joint finding. Small approximately 15 mm oval mass with 2 benign round calcifications. Finding is nonspecific. Signi ficance is doubtful. Prominent anterior soft tissues could indicate hematoma. Correlation is needed with proximal forearm bruising history.
--- NOTE | 2019-11-10 08:54 | RAD REPORT ---
EXAM DESCRIPTION: RAD - Humerus Right - 11/09/2019 10:38 pm CLINICAL HISTORY: ecchymosis, arm pain COMPARISON: No comparisonsNone. FINDINGS: No fracture is identified. There is no dislocation or periosteal reaction noted. Mild for age degenerative changes are present at the glenohumeral joint articular surfaces. AC joint degenerat karlee changes are present. No foreign body in the soft tissues. No clearly defined soft tissue mass. Soft tissues are mildly pro minent near the insertion of the deltoid musculature. Contusion, edema or small hematoma are possible . Correlation is needed with location of ecchymosis or any palpable mass. IMPRESSION: Degenerative change with no acute bone or joint finding. Mildly prominent soft tissues in the region of the deltoid muscle insertion. Contusion, edema and hem atoma are possible. Correlation is needed with exam findings.
== END 2019-11-10 01:57 | disposition home or self-care (01) ==
LOC: ER 21:18
DX: E87.6 Hypokalemia (principal); I48.20 Chronic atrial fibrillation, unspecified; Z79.82 Long term (current) use of aspirin; Z88.2 Allergy status to sulfonamides; Z86.73 Personal history of transient ischemic attack (TIA), and cerebral infarction without residual deficits
CPT/HCPCS: 96365; 93005; 85025; 80048; 36415; 85610; 85730; 73090; 73060; 99284; J7040

== ENCOUNTER 2019-11-22 22:15 | Emergency (ER) | payer OTHER ==
[2019-11-22] MEDS ORDERED: NA CHLORIDE 0.9% 1,000 ML ONE (23:16)
[2019-11-22 23:22] LABS: Absolute Lymphocytes (CBC) 1.2 K/uL (0.7-4.9); Basophils % 0.4 % (0-1.3); Hematocrit 31.6 % (39.6-49.0); Lymphocytes % 14.8 % (15.3-44.8); RBC Red Blood Cell Count 3.64 M/uL (4.33-5.43)
[2019-11-22 23:41] LABS: Albumin 2.5 g/dL (3.4-5.0); Bilirubin Direct 0.1 mg/dL (0-0.2); Bilirubin Total 0.4 mg/dL (0.2-1.0); Potassium 3.3 mmol/L (3.5-5.1); Protein, Total 5.9 g/dL (6.4-8.2)
[2019-11-22 23:47] LABS: Urine Blood 2+ (NEG); Urine Glucose NEGATIVE (NEG); Urine Protein 1+ (NEG); Urine Specific Gravity 1.015 (1.005-1.030); Urine pH 6.5 (5.0-7.0)
[2019-11-23] MEDS ORDERED: CEFTRIAXONE/SWI 1gm 1 GM/10 ML SYR ONE (04:02)
--- NOTE | 2019-11-23 04:33 | EDPHYS ---
Physician Documentation [facility] Name: Osmin Hobbs Age: 84 yrs Sex: Male : 1935 Arrival Date: 11/22/2019 Time: 22:16 Bed 19 Private MD: ED Physician Freedom Pham HPI: 11/21 23:04 This 84 yrs old Male presents to ER via EMS with complaints of Diarrhea. mh7 23:04 The patient presents to the emergency department with diarrhea, that is intermittent. mh7 Onset: The symptoms/episode began/occurred yesterday. Possible causes: unknown. The symptoms are aggravated by nothing. The symptoms are alleviated by nothing. Associated signs and symptoms: Pertinent positives: abdominal pain, Pertinent negatives: anorexia, belching, constipation, dysuria, fever, flatulence, GI bleeding, hematuria, nausea, vomiting. Severity of symptoms: At their worst the symptoms were moderate yesterday, in the emergency department the symptoms have improved moderately. Historical: - Allergies: 22:37 Sulfa (Sulfonamide Antibiotics); fu - Home Meds: 22:37 aspirin 81 mg Oral chew 1 tab once daily [Active]; b12 daily [Active]; fu - Immunization history:: Adult Immunizations unknown. - Social history:: Smoking status: unknown. ROS: 23:04 Constitutional: Negative for fever, chills, and weight loss, Eyes: Negative for injury, mh7 pain, redness, and discharge, ENT: Negative for injury, pain, and discharge, Neck: Negative for injury, pain, and swelling, Cardiovascular: Negative for chest pain, palpitations, and edema, Respiratory: Negative for shortness of breath, cough, wheezing, and pleuritic chest pain, Back: Negative for injury and pain, : Negative for injury, bleeding, discharge, and swelling, MS/Extremity: Negative for injury and deformity, Skin: Negative for injury, rash, and discoloration, Neuro: Negative for headache, weakness, numbness, tingling, and seizure, Psych: Negative for depression, anxiety, suicide ideation, homicidal ideation, and hallucinations, Allergy/Immunology: Negative for hives, rash, and allergies, Endocrine: Negative for neck swelling, polydipsia, polyuria, polyphagia, and marked weight changes, Hematologic/Lymphatic: Negative for swollen nodes, abnormal bleeding, and unusual bruising. Exam: 23:04 Constitutional: This is a well developed, well nourished patient who is awake, alert, mh7 and in no acute distress. Head/Face: Normocephalic, atraumatic. Eyes: Pupils equal round and reactive to light, extra-ocular motions intact. Lids and lashes normal. Conjunctiva and sclera are non-icteric and not injected. Cornea within normal limits. Periorbital areas with no swelling, redness, or edema. Neck: Trachea midline, no thyromegaly or masses palpated, and no cervical lymphadenopathy. Supple, full range of motion without nuchal rigidity, or vertebral point tenderness. No Meningismus. Chest/axilla: Normal chest wall appearance and motion. Nontender with no deformity. No lesions are appreciated. Cardiovascular: Regular rate and rhythm with a normal S1 and S2. No gallops, murmurs, or rubs. Normal PMI, no JVD. No pulse deficits. Respiratory: Lungs have equal breath sounds bilaterally, clear to auscultation and percussion. No rales, rhonchi or wheezes noted. No increased work of breathing, no retractions or nasal flaring. 23:04 Back: No spinal tenderness. No costovertebral tenderness. Full range of motion. Skin: Warm, dry with normal turgor. Normal color with no rashes, no lesions, and no evidence of cellulitis. Psych: Awake, alert, with orientation to person, place and time. Behavior, mood, and affect are within normal limits. 23:04 Abdomen/GI: Inspection: abdomen appears normal, Bowel sounds: normal, in all quadrants, Palpation: mild abdominal tenderness, in the suprapubic area, Rectal exam: the exam is deferred, because of patient request, Indicators: McBurney's point is not tender, Conde's sign is negative, Rovsing's sign is negative, Obturator sign is negative, Psoas sign is negative, Liver: no appreciated palpable abnormalities, Hernia: not appreciated. 23:04 Neuro: Orientation: appropriate for stated age, Mentation: appropriate for stated age, Memory: appropriate for stated age, Cranial nerves: grossly normal, Cerebellar function: is grossly normal based on the patient's age. Vital Signs: 22:33 BP 138 / 89; Pulse 85; Resp 19; Temp 97.8; Pulse Ox 96% on R/A; Pain 0/10; fu 22:35 BP 138 / 89; Pulse 85; Resp 19; Temp 97.8; Pulse Ox 96% ; Pain 0/10; fu 11/22 00:04 BP 126 / 93; Pulse 96; Resp 19; Temp 98.9(T); Pulse Ox 96% on R/A; Pain 0/10; fu 00:58 BP 128 / 91; Pulse 94; Resp 18; Temp 97.4; Pulse Ox 96% on R/A; Pain 0/10; fu 02:08 BP 138 / 96; Pulse 96; Resp 15; Pulse Ox 95% on R/A; Pain 0/10; fu 03:00 BP 140 / 98; Pulse 85; Pulse Ox 94% on R/A; Pain 0/10; fu 04:00 BP 145 / 95; Pulse 97; Resp 16; Temp 98.5(TE); Pulse Ox 97% on R/A; Pain 0/10; fu MDM: 11/21 22:42 Patient medically screened. [facility] 11/22 04:30 Differential diagnosis: Nonspecific abd pain, gastritis, viral gastroenteritis, [facility] gastroenteritis, UTI. Data reviewed: vital signs, nurses notes, EMS record, lab test result(s), CBC, electrolytes, urinalysis, EKG, radiologic studies, CT scan. Data interpreted: Pulse oximetry: on room air is 97 %. Interpretation: normal. Counseling: I had a detailed discussion with the patient and/or guardian regarding: the historical points, exam findings, and any diagnostic results supporting the discharge/admit diagnosis, the presence of at least one elevated blood pressure reading (>120/80) during this emergency department visit, lab results, radiology results, the need for outpatient follow up, to return to the emergency department if symptoms worsen or persist or if there are any questions or concerns that arise at home. Response to treatment: the patient's symptoms have resolved after treatment, the patient's blood pressure is in an acceptable range, mental status has returned to baseline, the patient no longer shows bradycardia, the patient is not short of breath, the patient is not tachycardic, the patient's pain is gone, the patient's temperature has normalized. 11/21 22:42 Order name: Basic Metabolic Panel; Complete Time: 00:00 [facility] 11/21 22:42 Order name: CBC with Diff; Complete Time: 00:00 [facility] 11/21 22:42 Order name: Hepatic Function; Complete Time: 00:00 [facility] 11/21 22:42 Order name: Lipase; Complete Time: 00:00 [facility] 11/21 23:42 Order name: Urine Dipstick--Ancillary (enter results); Complete Time: 00:00 tt3 11/22 00:00 Order name: CT Abd/Pelvis - IV Contrast Only [facility] 11/21 22:42 Order name: IV Saline Lock; Complete Time: 23:05 [facility] 11/21 22:42 Order name: Labs collected and sent; Complete Time: 23:05 [facility] 11/21 22:42 Order name: Urine Dipstick-Ancillary (obtain specimen); Complete Time: 23:45 [facility] Administered Medications: 11/21 23:09 Drug: NS 0.9% 1000 ml Route: IV; Rate: 1000 ml; Site: left antecubital; 11/22 00:09 Follow up: Response: No adverse reaction 00:28 Follow up: IV Intake: 1000ml fu 04:05 Drug: Rocephin - (cefTRIAXone) 1 grams Route: IVPB; Infused Over: 30 mins; Site: left fu antecubital; 04:28 Follow up: Response: No adverse reaction Disposition: 11/23/19 04:32 Discharged to Home. Impression: Urinary tract infection, site not specified, Diarrhea, unspecified. - Condition is Stable. - Discharge Instructions: Diarrhea, Adult, Urinary Tract Infection, Adult. - Prescriptions for Keflex 500 mg Oral Capsule - take 1 capsule by ORAL route every 12 hours for 7 days; 14 capsule. - SBAR form, Medication Reconciliation Form, Thank You Letter, Antibiotic Education, Prescription Opioid Use form. - Follow up: Private Physician; When: 1 - 2 days; Reason: Worsening of condition, Recheck today's complaints, Re-evaluation by your physician. - Problem is new. - Symptoms have improved. Signatures: Dispatcher [employer] EDMS Pepe De Paz RN RN Rehan Crabtree RN RN fu Holmes, Maurice, MD MD 7 Corrections: (The following items were deleted from the chart) 05:41 04:32 11/23/2019 04:32 Discharged to Home. Impression: Urinary tract infection, site sg not specified; Diarrhea, unspecified. Condition is Stable. Forms are Medication Reconciliation Form, Thank You Letter, Antibiotic Education, Prescription Opioid Use. Follow up: Private Physician; When: 1 - 2 days; Reason: Worsening of condition, Recheck today's complaints, Re-evaluation by your physician. Problem is new. Symptoms have improved. mh7
--- NOTE | 2019-11-23 04:33 | ER ---
Nurse's Notes [facility] Name: Osmin Hobbs Age: 84 yrs Sex: Male : 1935 Arrival Date: 11/22/2019 Time: 22:16 Bed 19 Private MD: Diagnosis: Urinary tract infection, site not specified;Diarrhea, unspecified Presentation: 11/21 22:33 Chief complaint: EMS states: diarrhea since 1am today. Coronavirus screen: Patient fu denies a cough. Patient denies shortness of breath or difficulty breathing. Patient denies measured and/or subjective temperature greater than 100.4F prior to today's visit. Patient denies travel on a cruise ship or to a country the [facility] currently lists as an affected area. Patient denies contact with known and/or suspected case of COVID-19. Ebola Screen: No symptoms or risks identified at this time. 22:33 Method Of Arrival: EMS: [facility] fu 22:35 Initial Sepsis Screen: Does the patient meet any 2 criteria? No. Patient's initial fu sepsis screen is negative. Does the patient have a suspected source of infection?. Risk Assessment: Do you want to hurt yourself or someone else? Patient reports no desire to harm self or others. Onset of symptoms was November 22, 2019. 22:35 Acuity: CESARIO 3 fu Historical: - Allergies: 22:37 Sulfa (Sulfonamide Antibiotics); fu - Home Meds: 22:37 aspirin 81 mg Oral chew 1 tab once daily [Active]; b12 daily [Active]; fu - Immunization history:: Adult Immunizations unknown. - Social history:: Smoking status: unknown. Screenin:39 Abuse screen: Denies threats or abuse. Nutritional screening: No deficits noted. fu Tuberculosis screening: No symptoms or risk factors identified. Fall Risk None identified. Assessment: 22:37 General: Appears in no apparent distress. Behavior is calm, cooperative, appropriate fu for age, Denies fever, chills. Pain: Denies pain. GI: Abdomen is round Bowel sounds present X 4 quads. Reports diarrhea. : No signs and/or symptoms were reported regarding the genitourinary system. Musculoskeletal: contractures right arm. 11/22 00:04 Reassessment: Patient appears in no apparent distress at this time. No changes from fu previously documented assessment. Patient and/or family updated on plan of care and expected duration. Pain level reassessed. Patient is alert, oriented x 3, equal unlabored respirations, skin warm/dry/pink. bruising to left forearm noted. 01:00 Reassessment: Patient appears in no apparent distress at this time. No changes from fu previously documented assessment. Patient and/or family updated on plan of care and expected duration. Pain level reassessed. Patient is alert, oriented x 3, equal unlabored respirations, skin warm/dry/pink. Vital Signs: 11/21 22:33 BP 138 / 89; Pulse 85; Resp 19; Temp 97.8; Pulse Ox 96% on R/A; Pain 0/10; fu 22:35 BP 138 / 89; Pulse 85; Resp 19; Temp 97.8; Pulse Ox 96% ; Pain 0/10; fu 11/22 00:04 BP 126 / 93; Pulse 96; Resp 19; Temp 98.9(T); Pulse Ox 96% on R/A; Pain 0/10; fu 00:58 BP 128 / 91; Pulse 94; Resp 18; Temp 97.4; Pulse Ox 96% on R/A; Pain 0/10; fu 02:08 BP 138 / 96; Pulse 96; Resp 15; Pulse Ox 95% on R/A; Pain 0/10; fu 03:00 BP 140 / 98; Pulse 85; Pulse Ox 94% on R/A; Pain 0/10; fu 04:00 BP 145 / 95; Pulse 97; Resp 16; Temp 98.5(TE); Pulse Ox 97% on R/A; Pain 0/10; fu ED Course: 11/21 22:16 Patient arrived in ED. cl3 22:19 Rehan Ibarra, ADRIÁN is Primary Nurse. fu 22:19 Freedom Pham MD is Attending Physician. mh7 22:35 Triage completed. fu 22:39 Patient has correct armband on for positive identification. Bed in low position. Side fu rails up X2. Pulse ox on. NIBP on. 23:05 Basic Metabolic Panel Sent. fu 23:05 CBC with Diff Sent. fu 23:05 Hepatic Function Sent. fu 23:05 Lipase Sent. fu 23:05 Inserted saline lock: 20 gauge in left antecubital area, using aseptic technique. Blood fu collected. 11/22 00:05 No provider procedures requiring assistance completed. fu 02:00 Patient placed in an exam room. ao 02:08 CT Abd/Pelvis - IV Contrast Only In Process Unspecified. EDMS 04:29 Report given to ADRIÁN Suazo. fu 05:57 IV discontinued, intact, bleeding controlled, No redness/swelling at site. Pressure ao dressing applied. Administered Medications: 11/21 23:09 Drug: NS 0.9% 1000 ml Route: IV; Rate: 1000 ml; Site: left antecubital; fu 11/22 00:09 Follow up: Response: No adverse reaction fu 00:28 Follow up: IV Intake: 1000ml fu 04:05 Drug: Rocephin - (cefTRIAXone) 1 grams Route: IVPB; Infused Over: 30 mins; Site: left fu antecubital; 04:28 Follow up: Response: No adverse reaction fu Intake: 00:28 IV: 1000ml; Total: 1000ml. fu Outcome: 04:32 Discharge ordered by mh7 05:41 Patient left the ED. sg 05:56 Discharged to home ambulatory. ao 05:56 Condition: stable 05:56 Discharge instructions given to patient, Instructed on discharge instructions, follow up and referral plans. Demonstrated understanding of instructions, follow-up care, medications, Prescriptions given X 1. Signatures: Dispatcher [employer] Pepe Willoughby RN RN sg Ortiz, Alex, RN RN ao Umadhay, Felix, RN RN fu Lewis, Charde cl3 Freedom Pham MD MD 7
[2019-11-23 06:02] VITALS: BP 145/95; TEMP 98.5; O2SAT 97
--- NOTE | 2019-11-23 20:30 | RAD REPORT ---
EXAM DESCRIPTION: CT ABDOMEN AND PELVIS WITH CONTRAST. CLINICAL HISTORY: Abdominal pain. COMPARISON: None. TECHNIQUE: Axial CT imaging of the abdomen and pelvis performed with intravenous contrast. Reformatt ed coronal and sagittal images reviewed. A dose reduction technique was utilized with automated exposure control according to patient size. FINDINGS: Small right and trace left pleural effusion. Heart is enlarged. Small pericardial effusion. The liver is enlarged to greater than 21 cm. There is no liver mass or biliary dilatation. Unremarkab le gallbladder. The spleen contains several calcified granulomas. Normal pancreas. There is a 16.7 x 13.0 x 12.5 cm hypodense heterogeneous solid mass arising from the superior pole of the right kidney cortex extending superiorly causing asymmetric elevation of the right hemidiaphragm . This is also significantly displacing the right lobe of the liver anteriorly. There are a few cysts within the inferior and posterior right kidney. The larger is exophytic posteriorly, 3.1 cm. There i s an exophytic 5.4 cm superior left renal cyst. Smaller cysts are seen throughout the remaining left kidney. There is a 3 mm nonobstructing left renal cortical stone. No hydronephrosis. Extensive atherosclerosis within the abdominal aorta. No aneurysm. Mesenteric vessels are well-opacif ied. Inferior vena cava appears normal. No retroperitoneal lymphadenopathy. Normal stomach and small bowel loops appear normal. Normal appendix in the right lower quadrant. Unre markable colon. No ascites or free air. There is mild bladder wall thickening. The prostate is 5.2 x 3.8 x 5.6 cm. No perinephric fluid. There is 9 mm degenerative anterior subluxation of L4 on L5. Moderate lower thoracic and lumbar spond ylosis. Intact bony pelvis. Intact hips. IMPRESSION: 1. Very large exophytic superior right renal mass up to 16.7 cm causing anterior displac ement of the liver and elevation of the right hemidiaphragm compatible with malignancy. There is no e vidence of distant metastatic disease. 2. Bilateral renal cysts. Nonobstructing left nephrolith. 3. Bladder wall is thickened to just of cystitis. Infiltrating process is also within differential bu t considered less likely. 4. Hepatomegaly. 5. Prostatomegaly. 6. Small right and trace left pleural effusion. Small pericardial effusion. Cardiomegaly. Electronically signed by: Hannah Rodríguez DO 11/23/2019 2:26 AM CDT Due to temporary technical issues with the PACS/Fluency reporting system, reports are being signed by the in house radiologist without review as a courtesy to ensure prompt reporting. The interpreting r adiologist is fully responsible for the content of the report.
== END 2019-11-23 05:41 | disposition home or self-care (01) ==
LOC: ER 22:15
DX: N39.0 Urinary tract infection, site not specified (principal); Z79.82 Long term (current) use of aspirin; Z88.2 Allergy status to sulfonamides
CPT/HCPCS: 85025; 80048; 36415; 80076; 81003; 83690; 74177; 96374; 99284; Q9967; J0696; J7030